=== PATIENT | male | born 1950 | race Caucasian/White ===

== ENCOUNTER 2020-05-08 07:11 | Day surgery (SDC) | payer MEDICARE ==
[2020-05-03 16:00] VITALS: BMI 24.3
[~2020-05-08 07:11] MED LIST: LACTATED RINGERS 1,000 ML IV SCH; LIDOCAINE 1% (10MG/ML) FOR IV START INTRADERMA PRN
[2020-05-08 07:25] VITALS: TEMP 97.8
[2020-05-08] MEDS ORDERED: LACTATED RINGERS 1,000 ML IV ONE (07:25)
[2020-05-08 07:32] LABS: Glucose,Whole Blood 72 mg/dL (75-99)
[2020-05-08] MEDS ORDERED: PROPOFOL 10 MG/ML 20 ML VIAL IV ONE (08:00)
--- NOTE | 2020-05-08 08:13 | P.GSHP ---
History of Present Illness H&P Date: 05/08/20 Chief Complaint: Colon cancer screening Patient here today for colonoscopy. He has not had 1 previously. No bowel complaints. No family history of colon cancer. Past Medical History Past Medical History: Cancer, Diabetes Mellitus, GERD/Reflux, Hyperlipidemia, Hypertension, Skin Disorder Additional Past Medical History / Comment(s): hiatal hernia, "dry skin". hx kidney cancer, hx skin cancer on face History of Any Multi-Drug Resistant Organisms: None Reported Past Surgical History: Hernia Repair, Tonsillectomy Additional Past Surgical History / Comment(s): partial left kidney removed for cancer, skin cancer removed from left side of face with graft Past Anesthesia/Blood Transfusion Reactions: No Reported Reaction Smoking Status: Former smoker - Past Family History Mother Family Medical History: No Reported History Medications and Allergies Home Medications Medication Instructions Recorded Confirmed Type Aspirin [Adult Low Dose Aspirin EC] 81 mg PO DAILY 05/03/20 05/03/20 History Atorvastatin [Lipitor] 20 mg PO 1800 05/03/20 05/03/20 History Fenofibrate Nanocrystallized 145 mg PO QAM 05/03/20 05/03/20 History [Fenofibrate] Insulin Glargine [Lantus] 27 unit SQ 1800 05/03/20 05/03/20 History Losartan Potassium 100 mg PO DAILY 05/03/20 05/03/20 History Metoprolol Tartrate [Lopressor] 50 mg PO BID 05/03/20 05/03/20 History Multivit-Min/FA/Lycopen/Lutein 1 each PO DAILY 05/03/20 05/03/20 History [Centrum Silver Tablet] Pantoprazole Sodium 40 mg PO BID 05/03/20 05/03/20 History Saxagliptin HCl [Onglyza] 5 mg PO QAM 05/03/20 05/03/20 History metFORMIN HCL [Glucophage] 850 mg PO BID 05/03/20 05/03/20 History Allergies Allergy/AdvReac Type Severity Reaction Status Date / Time Penicillins Allergy Swelling Verified 05/03/20 15:48 Surgical - Exam Vital Signs Temp Pulse Resp BP Pulse Ox 97.8 F 78 18 158/98 97 05/08/20 07:24 05/08/20 07:24 05/08/20 07:24 05/08/20 07:24 05/08/20 07:24 Physical exam: General: Well-developed, well-nourished HEENT: Normocephalic, sclerae nonicteric Abdomen: Nontender, nondistended Extremities: No edema Neuro: Alert and oriented Results - Labs Abnormal Lab Results - Last 24 Hours (Table) 05/08/20 Range/Units 07:29 POC Glucose (mg/dL) 72 L (75-99) mg/dL Assessment and Plan (1) Colon cancer screening Narrative/Plan: Will proceed with colonoscopy at this time Current Visit: Yes Status: Acute Code(s): Z12.11 - ENCOUNTER FOR SCREENING FOR MALIGNANT NEOPLASM OF COLON SNOMED Code(s): 286079839
--- NOTE | 2020-05-08 08:30 | P.PCN ---
Date of Procedure: 05/08/20 Procedure(s) Performed: PREOPERATIVE DIAGNOSIS: Colon cancer screening POSTOPERATIVE DIAGNOSIS: Descending colon polyp, transverse colon polyp, diverticulosis PROCEDURE: Colonoscopy with polypectomy ANESTHESIA: MAC SURGEON: Smooth Mckeon M.D. SPECIMENS: Polyps ENDOSCOPIC PROCEDURE: The patient was placed on the endoscopy table in the left decubitus position. The Olympus colonoscope was inserted into the anus and passed under direct visualization to the base of the cecum. The appendiceal orifice was visualized. From that point the scope was slowly withdrawn inspecting all surfaces carefully. There were no neoplastic inflammatory or polypoid lesions throughout the cecum or ascending colon. In the transverse colon a small polyp was removed. During removal using snare technique with cautery the polyp was mostly fulgurated and no significant specimen was obtained. In the descending colon at 45 cm a 1 cm polyp was removed in a piecemeal fashion. Was difficult to determine whether there was any residual polypoid tissue following removal. The remainder of the descending sigmoid and rectum appeared normal. There was mild diverticulosis. Digital rectal examination was normal. The patient was taken to the recovery room in stable condition per anesthesia guidelines. RECOMMENDATIONS: Await biopsy results. Will recommend short-term follow-up colonoscopy one year.
[2020-05-08 08:34] VITALS: RESP 16
[2020-05-08 08:53] VITALS: BP 131/78; PULSE 73
== END 2020-05-08 09:17 | disposition home or self-care (01) ==
LOC: ORWHC2ENDO 07:11
PROVIDERS: ATTEND Surgery
DX: Z12.11 Encounter for screening for malignant neoplasm of colon (principal); D12.4 Benign neoplasm of descending colon; K63.5 Polyp of colon; K57.30 Diverticulosis of large intestine without perforation or abscess without bleeding; E11.9 Type 2 diabetes mellitus without complications; K21.9 Gastro-esophageal reflux disease without esophagitis; E78.5 Hyperlipidemia, unspecified; I10 Essential (primary) hypertension; L85.3 Xerosis cutis; Z85.528 Personal history of other malignant neoplasm of kidney; Z85.828 Personal history of other malignant neoplasm of skin; Z87.19 Personal history of other diseases of the digestive system; Z98.890 Other specified postprocedural states; Z90.89 Acquired absence of other organs; Z90.5 Acquired absence of kidney; Z87.891 Personal history of nicotine dependence; Z79.82 Long term (current) use of aspirin; Z79.899 Other long term (current) drug therapy; Z79.4 Long term (current) use of insulin; Z88.0 Allergy status to penicillin; Z97.2 Presence of dental prosthetic device (complete) (partial)
CPT/HCPCS: 88305; 45385; J2704

== ENCOUNTER 2021-06-14 11:23 | Day surgery (SDC) | payer MEDICARE ==
[2021-05-16 09:33] VITALS: BMI 24.3
[2021-06-14] MEDS ORDERED: PROPOFOL 10 MG/ML 20 ML VIAL IV ONE (12:04)
[2021-06-14] MEDS ORDERED: LIDOCAINE 1% INJ 10MG/ML (20 ML MDV) ONE (12:04)
[2021-06-14] MEDS ORDERED: fentaNYL (PF) 50 MCG/ML 2 ML AMP ONE (12:04)
[2021-06-14] MEDS ORDERED: MIDAZOLAM 2 MG/2 ML VIAL ONE (12:04)
[2021-06-14 12:05] VITALS: RESP 16; TEMP 97
[2021-06-14 12:07] LABS: Glucose,Whole Blood 81 mg/dL (75-99)
[2021-06-14 12:42] LABS: Glucose,Whole Blood 85 mg/dL (75-99)
[2021-06-14 12:49] VITALS: BP 171/89; PULSE 66
[2021-06-14 13:42] LABS: Basophils # (A) 0.1 k/uL (0-0.2); Basophils % (A) 1 %; Eosinophils # (A) 0.2 k/uL (0-0.7); Eosinophils % (A) 5 %; HCT 39.4 % (39.0-53.0); HGB 12.7 gm/dL (13.0-17.5); Lymphocytes # (A) 1.1 k/uL (1.0-4.8); Lymphocytes % (A) 21 %; MCH 29.3 pg (25.0-35.0); MCHC 32.1 g/dL (31.0-37.0); MCV 91.3 fL (80.0-100.0); Mean Platelet Volume 8.7; Monocytes # (A) 0.4 k/uL (0-1.0); Monocytes % (A) 8 %; Neutrophils # (A) 3.2 k/uL (1.3-7.7); Neutrophils % (A) 61 %; Platelet Count 288 k/uL (150-450); RBC 4.32 m/uL (4.30-5.90); RDW 14.5 % (11.5-15.5); Reticulocyte % 1.8 % (0.5-2.0); WBC 5.2 k/uL (3.8-10.6)
--- NOTE | 2021-06-14 14:19 | PCN ---
PROCEDURE NOTE DATE OF PROCEDURE: 06/14/2021 PREOPERATIVE DIAGNOSIS: Multiple myeloma. POSTOPERATIVE DIAGNOSIS: Multiple myeloma. PROCEDURE: Bone marrow aspirate and biopsy. SITE: Right iliac crest. ANESTHESIA: Local with IV systemic sedation. DETAILS: Utilizing sterile technique, the skin overlying the right iliac crest was prepared with Betadine and alcohol. After adequate sterile draping and local anesthesia with 1% lidocaine and systemic sedation, a size 11, 4-inch Jamshidi needle was utilized to access the periosteum with ease. A total of 16 mL of aspirate and 3 cm bone core biopsies were obtained. The patient tolerated the procedure well. There was no immediate procedure-related complication. Total blood loss was less than 1 mL. Results are pending. MMODL / IJN: [id number] /
== END 2021-06-14 13:02 | disposition home or self-care (01) ==
LOC: OR 11:23
PROVIDERS: ATTEND Internal Medicine Hematology & Oncology
DX: C90.00 Multiple myeloma not having achieved remission (principal)
CPT/HCPCS: 38222; 85025; 85045; J2250; J2001; J3010; J2704

== ENCOUNTER → 2021-07-12 | Outpatient (CLI) | payer MEDICARE ==
--- NOTE | 2021-07-16 13:37 | PE ---
Nuclear medicine PET/CT HISTORY: Multiple myeloma, initial Patient received 8.2 mCi F-18 FDG intravenously in delayed scanning was performed from the skull base to the mid thighs. Localization and attenuation correction CT scan was performed. No comparisons Average mediastinal SUV 2.4, average liver SUV 3.3 Chest and neck: There is no cervical or supraclavicular adenopathy, no suspicious uptake. Subcarinal adenopathy is borderline, SUV 3.4. There is a small pericardial effusion. Coronary artery calcifications are present. Hiatal hernia with partial intrathoracic stomach is noted. There is basil ar atelectasis. No evident lung mass, centrilobular paraseptal emphysematous changes are present. ABDOMEN: There is no evident liver mass. No adrenal mass or retroperitoneal adenopathy. Cortical cyst at the upper pole of the left kidney is exophytic and measures approximately 5.8 cm, no suspicious u ptake. Uptake along the bowel is likely physiologic. Diverticular change is present. Within the left lower quadrant there are metallic densities, correlate for prior surgery. Prostate is enlarged. No pe lvic adenopathy or free fluid. Nonenlarged nodes in the left axilla show uptake, SUV 2.5, nonenlarged nodes in the right axilla showing SUV 2.0 Osseous structures show no suspicious lytic lesions, no suspicious uptake. Degenerative disc changes, facet arthropathy noted at the lower lumbar spine. Degenerative change present within the right shou lder. IMPRESSION: No suspicious uptake within the bones. Additional nonspecific findings described above.
== END | disposition home or self-care (01) ==
LOC: RADPETMAIN 11:24
PROVIDERS: ATTEND Internal Medicine Hematology & Oncology
DX: C90.00 Multiple myeloma not having achieved remission (principal); M47.816 Spondylosis without myelopathy or radiculopathy, lumbar region; M19.011 Primary osteoarthritis, right shoulder; N28.1 Cyst of kidney, acquired; I31.3 Pericardial effusion (noninflammatory); K44.9 Diaphragmatic hernia without obstruction or gangrene; J98.11 Atelectasis; I25.10 Atherosclerotic heart disease of native coronary artery without angina pectoris
CPT/HCPCS: 78815; A9552

== ENCOUNTER 2021-08-06 07:07 | Day surgery (SDC) | payer MEDICARE ==
[2021-08-01 14:09] VITALS: BMI 23.7
[2021-08-06 07:37] VITALS: RESP 16; TEMP 97.6
[2021-08-06] MEDS ORDERED: LIDOCAINE 1% (10MG/ML) FOR IV START INTRADERMA ONE (07:40)
[2021-08-06] MEDS ORDERED: PROPOFOL 10 MG/ML 20 ML VIAL IV ONE (07:57)
[2021-08-06] MEDS ORDERED: LIDOCAINE 1% INJ 10MG/ML (20 ML MDV) ONE (07:57)
[2021-08-06 07:58] LABS: Glucose,Whole Blood 90 mg/dL (75-99)
--- NOTE | 2021-08-06 08:00 | P.GSHP ---
History of Present Illness H&P Date: 08/06/21 Chief Complaint: Colon polyp 71-year-old male underwent colonoscopy April 2020. Patient was found to have a 1 cm polyp in the descending colon that was removed in pieces. Here today for repeat evaluation. No new bowel complaints. Past Medical History Past Medical History: Cancer, Diabetes Mellitus, GERD/Reflux, Hyperlipidemia, Hypertension Additional Past Medical History / Comment(s): hiatal hernia, hx kidney cancer with surgery., skin cancer., states iron infusion Mar 2021., states elevated protein in his blood. History of Any Multi-Drug Resistant Organisms: None Reported Past Surgical History: Heart Catheterization, Hernia Repair, Tonsillectomy Additional Past Surgical History / Comment(s): partial left kidney removed for cancer, skin cancer removed from left side of face with graft, inguinal hernia repair x2. bone marrow biopsy 06/14/21 Past Anesthesia/Blood Transfusion Reactions: No Reported Reaction Smoking Status: Former smoker - Past Family History Mother Family Medical History: No Reported History Medications and Allergies Home Medications Medication Instructions Recorded Confirmed Type Atorvastatin [Lipitor] 20 mg PO 1800 05/03/20 08/06/21 History Fenofibrate Nanocrystallized 145 mg PO QAM 05/03/20 08/06/21 History [Fenofibrate] Insulin Glargine [Lantus] 22 unit SQ 1800 05/03/20 08/06/21 History Losartan Potassium 100 mg PO QAM 05/03/20 08/06/21 History Metoprolol Tartrate [Lopressor] 50 mg PO BID 05/03/20 08/06/21 History Multivit-Min/FA/Lycopen/Lutein 1 each PO DAILY 05/03/20 08/01/21 History [Centrum Silver Tablet] Pantoprazole Sodium 40 mg PO HS 05/03/20 08/06/21 History metFORMIN HCL [Glucophage] 850 mg PO BID 05/03/20 08/06/21 History Ascorbic Acid [Vitamin C] 300 mg PO DAILY 05/16/21 08/01/21 History Cholecalciferol [Vitamin D3 (25 50 mcg PO DAILY 05/16/21 08/01/21 History Mcg = 1000 Iu)] Turmeric Root Extract [Turmeric] 1,500 mg PO DAILY 05/16/21 08/01/21 History Vitamin B Complex 1 each PO DAILY 05/16/21 08/01/21 History Allergies Allergy/AdvReac Type Severity Reaction Status Date / Time Penicillins Allergy Swelling Verified 08/06/21 07:31 Surgical - Exam Vital Signs Temp Pulse Resp BP Pulse Ox 97.6 F 61 16 173/83 98 08/06/21 07:36 08/06/21 07:36 08/06/21 07:36 08/06/21 07:36 08/06/21 07:36 Physical exam: General: Well-developed, well-nourished HEENT: Normocephalic, sclerae nonicteric Abdomen: Nontender, nondistended Extremities: No edema Neuro: Alert and oriented Assessment and Plan (1) Colon polyp Narrative/Plan: Will proceed with colonoscopy at this time Current Visit: Yes Status: Acute Code(s): K63.5 - POLYP OF COLON SNOMED Code(s): 04246246
--- NOTE | 2021-08-06 08:27 | P.PCN ---
Date of Procedure: 08/06/21 Procedure(s) Performed: PREOPERATIVE DIAGNOSIS: GERD, colon polyp POSTOPERATIVE DIAGNOSIS: Gastritis, moderate sized hiatal hernia, diverticulosis, colon polyp PROCEDURE: 1. EGD with biopsy 2. Colonoscopy with snare polypectomy ANESTHESIA: MAC SURGEON: Smooth Mckeon M.D. SPECIMENS: Antrum, descending colon polyp ENDOSCOPIC PROCEDURE: The patient was on the endoscopy table in the left decubitus position. The Olympus gastroscope was inserted into the oropharynx and passed under direct visualization to the region of the third portion of the duodenum. From that point the scope was slowly withdrawn inspecting all surfaces carefully. There were no neoplastic inflammatory or polypoid lesions throughout the duodenum. The pylorus was widely patent. The stomach was carefully inspected. There was mild gastritis present. A biopsy of the antrum took place to rule out H. pylori. Retroflexion revealed a moderate sized hiatal hernia. The GE junction was present 5 cm above the diaphragmatic hiatus. There were no inflammatory changes above the diaphragmatic hiatus or in the esophagus as well. The patient was kept on the endoscopy table in the left decubitus position. The Olympus colonoscope was inserted into the anus and passed under direct visualization to the base of the cecum. The appendiceal orifice was visualized. From that point the scope was slowly withdrawn inspecting all surfaces carefully. There were no neoplastic inflammatory or polypoid lesions throughout the cecum, ascending, and transverse colon. In the descending colon at 45 cm a small portion of the polyp previously seen was again visualized. This was removed in 2 pieces. No obvious residual polypoid tissue was seen. The remainder of the descending sigmoid and rectum appeared normal. There was mild scattered diverticulosis. Digital rectal examination was normal. The patient was taken to the recovery room in stable condition per anesthesia guidelines. RECOMMENDATIONS: Await biopsy results. Recommend repeat colonoscopy 2 years.
[2021-08-06 08:47] VITALS: BP 147/84; PULSE 71
== END 2021-08-06 09:06 | disposition home or self-care (01) ==
LOC: ORWHC2ENDO 07:07
PROVIDERS: ATTEND Surgery
DX: Z12.11 Encounter for screening for malignant neoplasm of colon (principal); D12.4 Benign neoplasm of descending colon; K57.30 Diverticulosis of large intestine without perforation or abscess without bleeding; K29.50 Unspecified chronic gastritis without bleeding; K31.9 Disease of stomach and duodenum, unspecified; K44.9 Diaphragmatic hernia without obstruction or gangrene; E78.5 Hyperlipidemia, unspecified; E11.9 Type 2 diabetes mellitus without complications; K21.9 Gastro-esophageal reflux disease without esophagitis; I10 Essential (primary) hypertension; Z85.828 Personal history of other malignant neoplasm of skin; Z87.442 Personal history of urinary calculi; Z98.890 Other specified postprocedural states; Z87.891 Personal history of nicotine dependence; Z97.2 Presence of dental prosthetic device (complete) (partial); Z90.5 Acquired absence of kidney; Z85.528 Personal history of other malignant neoplasm of kidney; Z79.84 Long term (current) use of oral hypoglycemic drugs; Z79.4 Long term (current) use of insulin; Z79.899 Other long term (current) drug therapy; Z88.0 Allergy status to penicillin
CPT/HCPCS: 88305; 45385; 43239; J2001; J2704

== ENCOUNTER 2022-01-01 18:49 | Emergency (ER) | payer MEDICARE ==
[2022-01-01 19:07] VITALS: RESP 18
[2022-01-01] MEDS ORDERED: HYDROmorphone 0.5 MG/0.5 ML SYRINGE IVP STA (19:14)
[2022-01-01] MEDS ORDERED: SODIUM CHLORIDE 0.9% 1,000 ML IV STA (19:14)
[2022-01-01] MEDS ORDERED: ONDANSETRON 4 MG/2 ML VIAL IVP STA (19:14)
--- NOTE | 2022-01-01 19:19 | ED ---
Abdominal Pain HPI - General Chief Complaint: Abdominal Pain Stated Complaint: side pain Time Seen by Provider: 01/01/22 19:08 Source: patient, RN notes reviewed Mode of arrival: ambulatory Limitations: no limitations - History of Present Illness Initial Comments: This is a 71-year-old male who presents to the emergency department for right lower quadrant pain. Patient states that he and his were eating dinner, and he started to develop a severe pain in the right lower quadrant and also started to feel clammy and nauseous. He had planned on seeing his primary care provider tomorrow, however he states that the pain has persisted and he was not able to take it anymore. Denies any vomiting, changes in bowel habits, or difficulty with urination. Denies any testicular pain. Patient states that he has had hernias in the past, and this feels much different. Denies any fevers, chills, sore throat, cough, dyspnea, chest pain, palp itations, vomiting, diarrhea, back pain, or headaches. MD Complaint: abdominal pain Location: RLQ Associated Symptoms: nausea - Related Data Home Medications Medication Instructions Recorded Confirmed Atorvastatin [Lipitor] 20 mg PO DAILY 05/03/20 01/01/22 Fenofibrate Nanocrystallized 145 mg PO DAILY 05/03/20 01/01/22 [Fenofibrate] Insulin Glargine [Lantus] 27 unit SQ DAILY@1800 05/03/20 01/01/22 Losartan Potassium 100 mg PO DAILY 05/03/20 01/01/22 Metoprolol Tartrate [Lopressor] 50 mg PO BID 05/03/20 01/01/22 Multivit-Min/FA/Lycopen/Lutein 1 tab PO DAILY 05/03/20 01/01/22 [Centrum Silver Tablet] Pantoprazole Sodium 40 mg PO HS 05/03/20 01/01/22 metFORMIN HCL [Glucophage] 850 mg PO BID 05/03/20 01/01/22 Ascorbic Acid [Vitamin C] 500 mg PO DAILY 05/16/21 01/01/22 Cholecalciferol [Vitamin D3 (25 50 mcg PO DAILY 05/16/21 01/01/22 Mcg = 1000 Iu)] Vitamin B Complex 1 cap PO DAILY 05/16/21 01/01/22 Aspirin EC [Ecotrin Low Dose] 81 mg PO DAILY 01/01/22 01/01/22 Dapagliflozin Propanediol [Farxiga] 10 mg PO DIRECTED 01/01/22 01/01/22 Meclizine HCl [Antivert] 25 mg PO TID PRN 01/01/22 01/01/22 Nystatin 100,000Unit/gm Cream 1 applic TOPICAL BID PRN 01/01/22 01/01/22 [Mycostatin Cream] Omeprazole Magnesium [PriLOSEC OTC] 20 mg PO DAILY 01/01/22 01/01/22 Saxagliptin HCl [Onglyza] 5 mg PO DIRECTED 01/01/22 01/01/22 Turmeric Root Extract [Turmeric] 1,000 mg PO DAILY 01/01/22 01/01/22 Previous Rx's Medication Instructions Recorded HYDROcodone/APAP 5-325MG [[place] 1 tab PO Q6HR PRN 3 Days #12 tab 01/01/22 5-325] Ibuprofen 600 mg PO Q6H PRN #30 tab 01/01/22 Ondansetron Odt [Zofran Odt] 4 mg PO Q8HR PRN #20 tab 01/01/22 Tamsulosin [Flomax] 0.4 mg PO DAILY #10 cap 01/01/22 cefUROXime axetiL [Ceftin] 500 mg PO BID 7 Days #14 tab 01/01/22 Allergies Allergy/AdvReac Type Severity Reaction Status Date / Time Penicillins Allergy Swelling Verified 01/01/22 20:17 Review of Systems ROS Statement: Those systems with pertinent positive or pertinent negative responses have been documented in the HPI. ROS Other: All systems not noted in ROS Statement are negative. Past Medical History Past Medical History: Cancer, Diabetes Mellitus, GERD/Reflux, Hyperlipidemia, Hypertension Additional Past Medical History / Comment(s): hiatal hernia, hx kidney cancer with surgery., skin cancer., states iron infusion Mar 2021., states elevated protein in his blood. History of Any Multi-Drug Resistant Organisms: None Reported Past Surgical History: Heart Catheterization, Hernia Repair, Tonsillectomy Additional Past Surgical History / Comment(s): partial left kidney removed for cancer, skin cancer removed from left side of face with graft, inguinal hernia repair x2. bone marrow biopsy 06/14/21 Past Anesthesia/Blood Transfusion Reactions: No Reported Reaction Past Psychological History: No Psychological Hx Reported Smoking Status: Former smoker Past Alcohol Use History: Occasional Past Drug Use History: None Reported - Past Family History Mother Family Medical History: No Reported History General Exam Limitations: no limitations General appearance: alert, in distress Head exam: Present: atraumatic, normocephalic, normal inspection Neck exam: Present: normal inspection. Absent: tenderness, meningismus, lymphadenopathy Respiratory exam: Present: normal lung sounds bilaterally. Absent: respiratory distress, wheezes, rales, rhonchi, stridor Cardiovascular Exam: Present: regular rate, normal rhythm, normal heart sounds. Absent: systolic murmur, diastolic murmur, rubs, gallop, clicks GI/Abdominal exam: Present: soft, tenderness (RLQ), normal bowel sounds. Absent: distended, guarding, rebound, rigid Neurological exam: Present: alert, oriented X3, CN II-XII intact Psychiatric exam: Present: normal affect, normal mood Skin exam: Present: warm, dry, intact, normal color. Absent: rash Course Vital Signs 01/01/22 19:04 Temperature 97.9 F Pulse Rate 60 Respiratory 18 Rate Blood Pressure 167/77 O2 Sat by Pulse 96 Oximetry Medical Decision Making - Medical Decision Making This is a 71 year old male who presents to the emergency department for right lower quadrant pain. Lab work is consistent with an acute kidney injury and urinalysis is consistent with an infection and hematuria. Computed tomography scan of the abdomen and pelvis reveals right-sided hydronephrosis and hydroureter with a renal calculus at the ureterovesicular junction. Findings di scussed with the patient. Patient's pain and nausea was controlled in the emergency department. Discussed with the patient, that because his symptoms were controlled in the emergency department, this can be managed on an outpatient basis. Prescription for [place], ibuprofen, Zofran, Flomax, and Ceftin provided. Initial dose of ceftriaxone was administered in the emergency department. Advised to try treating pain with ibuprofen and Tylenol and to take the [place] sparingly when the pain is the most severe. Also instructed him to avoid driving or operating machinery when taking this. The Flomax is to be taken once daily until his pain resolves or he realizes that he passed the stone. He was given a urine strainer to use at home. Follow up for urology was provided. Return precautions reviewed in depth, the patient is instructed to return to the emergency department with any new, worsening, or concerning symptoms. Patient verbalized understanding. This case was discussed in detail with the attending ED physician. Presentation, findings, and treatment plan discussed in detail as well. - Lab Data Result diagrams: 01/01/22 20:00 01/01/22 20:00 Lab Results 01/01/22 01/01/22 01/01/22 Range/Units 20:00 20:00 21:07 WBC 8.5 (3.8-10.6) k/uL RBC 4.05 L (4.30-5.90) m/uL Hgb 11.6 L (13.0-17.5) gm/dL Hct 37.2 L (39.0-53.0) % MCV 91.9 (80.0-100.0) fL MCH 28.8 (25.0-35.0) pg MCHC 31.3 (31.0-37.0) g/dL RDW 13.4 (11.5-15.5) % Plt Count 287 (150-450) k/uL MPV 7.6 Neutrophils % 80 % Lymphocytes % 11 % Monocytes % 4 % Eosinophils % 3 % Basophils % 0 % Neutrophils # 6.8 (1.3-7.7) k/uL Lymphocytes # 0.9 L (1.0-4.8) k/uL Monocytes # 0.4 (0-1.0) k/uL Eosinophils # 0.2 (0-0.7) k/uL Basophils # 0.0 (0-0.2) k/uL Hypochromasia Slight Sodium 135 L (137-145) mmol/L Potassium 5.2 H (3.5-5.1) mmol/L Chloride 106 (98-107) mmol/L Carbon Dioxide 16 L (22-30) mmol/L Anion Gap 13 mmol/L BUN 42 H (9-20) mg/dL Creatinine 1.95 H (0.66-1.25) mg/dL Est GFR (CKD-EPI)AfAm 39 (>60 ml/min/1.73 sqM) Est GFR (CKD-EPI)NonAf 34 (>60 ml/min/1.73 sqM) Glucose 307 H (74-99) mg/dL Calcium 8.9 (8.4-10.2) mg/dL Total Bilirubin 0.3 (0.2-1.3) mg/dL AST 21 (17-59) U/L ALT 14 (4-49) U/L Alkaline Phosphatase 63 (38-126) U/L Total Protein 10.9 H (6.3-8.2) g/dL Albumin 3.8 (3.5-5.0) g/dL Urine Color Yellow Urine Appearance Cloudy (Clear) Urine pH 6.0 (5.0-8.0) Ur Specific [place] 1.012 (1.001-1.035) Urine Protein 1+ H (Negative) Urine Glucose (UA) 3+ H (Negative) Urine Ketones Negative (Negative) Urine Blood Moderate H (Negative) Urine Nitrite Negative (Negative) Urine Bilirubin Negative (Negative) Urine Urobilinogen <2.0 (<2.0) mg/dL Ur Leukocyte Esterase Large H (Negative) Urine RBC 87 H (0-5) /hpf Urine WBC 16 H (0-5) /hpf Ur Squamous Epith Cells 2 (0-4) /hpf Hyaline Casts 1 (0-2) /lpf Urine Mucus Rare H (None) /hpf - Radiology Data Radiology results: report reviewed, image reviewed Disposition Clinical Impression: Hydronephrosis concurrent with and due to calculi of kidney and ureter Disposition: HOME SELF-CARE Instructions (If sedation given, give patient instructions): Kidney Stones (ED), How to Strain Your Urine (ED) Additional Instructions: Return to the emergency department with any new, worsening, or concerning symptoms. Take the Flomax daily until your pain resolves or you notice that you passed the kidney stone. Take the antibiotic twice daily as prescribed for 7 days. Take Ibuprofen and Tylenol as needed for pain, and use the [place] sparingly when your pain is the most severe. The Zofran can be taken up to every 8 hours as needed for nausea and vomiting. Do not drive or operate machinery when taking this. Contact Dr. Alfonso, urology, as listed below for a follow up appointment. Prescriptions: cefUROXime axetiL [Ceftin] 500 mg PO BID 7 Days #14 tab Tamsulosin [Flomax] 0.4 mg PO DAILY #10 cap Ibuprofen 600 mg PO Q6H PRN #30 tab PRN Reason: Pain HYDROcodone/APAP 5-325MG [[place] 5-325] 1 tab PO Q6HR PRN 3 Days #12 tab PRN Reason: Pain Ondansetron Odt [Zofran Odt] 4 mg PO Q8HR PRN #20 tab PRN Reason: Nausea And Vomiting Is patient prescribed a controlled substance at d/c from ED?: Yes When asked, does pt state using other controlled substances?: No If prescribed controlled substance>3 days was MAPS reviewed?: Prescribed <3 Days Referrals: Jed Del Rio MD [Primary Care Provider] - 1-2 days Keith Alfonso MD [STAFF PHYSICIAN] - 1-2 days
[2022-01-01 20:08] LABS: Basophils % (A) 0 %; Eosinophils # (A) 0.2 k/uL (0-0.7); Eosinophils % (A) 3 %; HCT 37.2 % (39.0-53.0); HGB 11.6 gm/dL (13.0-17.5); Hypochromasia Slight; Lymphocytes # (A) 0.9 k/uL (1.0-4.8); Lymphocytes % (A) 11 %; MCH 28.8 pg (25.0-35.0); MCHC 31.3 g/dL (31.0-37.0); MCV 91.9 fL (80.0-100.0); Mean Platelet Volume 7.6; Monocytes # (A) 0.4 k/uL (0-1.0); Monocytes % (A) 4 %; Neutrophils # (A) 6.8 k/uL (1.3-7.7); Neutrophils % (A) 80 %; Platelet Count 287 k/uL (150-450); RBC 4.05 m/uL (4.30-5.90); RDW 13.4 % (11.5-15.5); WBC 8.5 k/uL (3.8-10.6)
[2022-01-01 20:15] LABS: Albumin 3.8 g/dL (3.5-5.0); Calcium 8.9 mg/dL (8.4-10.2); Potassium 5.2 mmol/L (3.5-5.1); Total Bilirubin 0.3 mg/dL (0.2-1.3); Total Protein 10.9 g/dL (6.3-8.2)
--- NOTE | 2022-01-01 21:07 | CT ---
EXAMINATION TYPE: CT abdomen pelvis wo con DATE OF EXAM: 01/01/2022 COMPARISON: PET CT scan 07/12/2021 HISTORY: Right lower quadrant abdominal pain. CT DLP: 720.6 mGycm Automated exposure control for dose reduction was used. Images obtained from the diaphragm to the floor of the pelvis with no contrast. There is some linear infiltrate and atelectasis at both lung bases and more on the left side. Some el evation of the left diaphragm. There is large hiatal hernia. No pericardial effusion. Heart appears e nlarged. Liver spleen pancreas and gallbladder appear intact. Bile ducts are not dilated. There is no adrenal mass. Kidneys have normal size. There is right side hydronephrosis and hydrourete r. There is mild right-sided periureteral edema. There is faint calcification at the right ureteroves ical junction and could be a small 2 mm calculus. Bladder distends smoothly. No inguinal hernia. Ther e are apparent surgical clips in the left inguinal region. No free fluid in the pelvis. No pelvic mas s. There are some sigmoid diverticula. No diverticulitis. There is 6 cm cortical cyst lateral left ki dney. No retroperitoneal adenopathy. There is 1 cm calcification at the posterior right renal hilum t hat is vascular in appearance. No evidence of obstruction on the left side. There is no mesenteric edema. No ascites or free air. No sign of a bowel obstruction. Appendix is pos terior and small and appears normal. The lumbar vertebrae have normal alignment. No compression fracture. No focal bone destruction. Bony pelvis is intact. The hip joints are intact. IMPRESSION: There is mild right-sided hydronephrosis and hydroureter and perinephric mild edema which is new comp ared to old exam and there is likely a low density calculus at the ureterovesical junction. Normal appendix. Sigmoid diverticulosis. There is some mild linear infiltrate and atelectasis at the lung bases similar to old exam.
[2022-01-01] MEDS ORDERED: IBUPROFEN 600 MG STARTER PACK 4 TAB BTL PO STA (21:22)
[2022-01-01] MEDS ORDERED: ACET/COD 300 MG/30 MG STARTER PACK 6 TAB BTL PO STA (21:22)
[2022-01-01] MEDS ORDERED: ONDANSETRON 4 MG ODT STARTER PACK 2 TAB BTL PO STA (21:22)
[2022-01-01 21:23] LABS: Appearance,Urine Cloudy (Clear); Bilirubin,Urine Negative (Negative); Blood,Urine Moderate (Negative); Color,Urine Yellow; Glucose,Urine (UA) 3+ (Negative); Hyaline Casts,Urine 1 /lpf (0-2); Ketones,Urine Negative (Negative); Leukocyte Esterase,Urine Large (Negative); Mucus,Urine Rare /hpf; Nitrite,Urine Negative (Negative); Protein,Urine 1+ (Negative); RBC,Urine 87 /hpf (0-5); Specific Gravity,Urine 1.012 (1.001-1.035); Squamous Epithelial Cell,Urine 2 /hpf (0-4); Urobilinogen,Urine <2.0 mg/dL (<2.0); WBC,Urine 16 /hpf (0-5)
[2022-01-01] MEDS ORDERED: cefTRIAXone IN SWFI 1,000 MG/10 ML SYRINGE IVP STA (21:29)
[2022-01-01 22:02] VITALS: BP 160/85; PULSE 73; TEMP 98.3
== END 2022-01-01 22:02 | disposition home or self-care (01) ==
LOC: EC 18:49
DX: N13.2 Hydronephrosis with renal and ureteral calculous obstruction (principal); E11.9 Type 2 diabetes mellitus without complications; K21.9 Gastro-esophageal reflux disease without esophagitis; I10 Essential (primary) hypertension; Z87.891 Personal history of nicotine dependence; Z88.0 Allergy status to penicillin; Z79.82 Long term (current) use of aspirin; Z79.899 Other long term (current) drug therapy; Z79.84 Long term (current) use of oral hypoglycemic drugs
CPT/HCPCS: 36415; 80053; 85025; 81001; 87086; 74176; 99284; 96374; 96375 ×2; 96361 ×2; J2405; J0696; S0119; J1170

== ENCOUNTER → 2022-03-11 | Outpatient (CLI) | payer MEDICARE ==
--- NOTE | 2022-03-11 13:38 | US ---
EXAMINATION TYPE: US kidneys/renal and bladder DATE OF EXAM: 03/11/2022 COMPARISON: CT abdomen pelvis 01/01/2022. CLINICAL HISTORY: N20.0 CALCULUS OF KIDNEY. History of kidney stone EXAM MEASUREMENTS: Right Kidney: 12.3 x 5.6 x 6.1 cm Left Kidney: 11.9 x 5.4 x 4.0 cm Limitations due to large amount of overlying bowel content Right Kidney: Cyst measuring up to 1.5 cm. No solid mass or shadowing calculi. Left Kidney: Cyst within the superior pole of the left kidney measuring 4.6 x 4.6 x 5.9 cm. No solid mass or shadowing calculi. Bladder: wnl Bilateral Jets seen: no Multiple enlarged Prostate = 5.1cm. This indents upon the bladder base. IMPRESSION: 1. No hydronephrosis or shadowing calculi. 2. Bilateral renal cysts. 3. Mildly enlarged prostate gland.
== END | disposition home or self-care (01) ==
LOC: RADUSWWP 12:48
PROVIDERS: ATTEND Internal Medicine
DX: N28.1 Cyst of kidney, acquired (principal); N40.0 Benign prostatic hyperplasia without lower urinary tract symptoms
CPT/HCPCS: 76770

== ENCOUNTER → 2022-08-29 | Outpatient (CLI) | payer MEDICARE ==
--- NOTE | 2022-08-30 22:29 | PE ---
EXAMINATION TYPE: PET CT fusion skull to thigh DATE OF EXAM: 08/29/2022 COMPARISON: Prior PET/CT July 12, 2021 HISTORY: Multiple myeloma. History of tumor left kidney removed 2015. TECHNIQUE: Following the intravenous administration of 10.5 mCi of F-18 FDG, whole body images are p erformed from the top of skull to the bottom of feet. Images are reviewed on the computer in the cor onal, axial, and sagittal planes. Reconstructed rotating images are created on independent workstati on and reviewed on the computer. A localization and attenuation correction CT is performed in conju nction with the PET scan. Blood glucose level equals 112 SCAN: Subsequent Scan FINDINGS: HEAD AND NECK: No areas of abnormal hypermetabolic uptake. CHEST, MEDIASTINUM, AND HILAR REGION: No areas of abnormal hypermetabolic uptake. ABDOMEN AND PELVIS: No areas of abnormal hypermetabolic uptake. LOWER EXTREMITIES: No areas of abnormal hypermetabolic uptake. OSSEOUS STRUCTURES: No areas of hypermetabolic focal lytic lesions. OTHER CT: Moderate calcified plaque left greater than right carotid bulbs is redemonstrated. Moderate to large size hiatal hernia is redemonstrated. Coronary artery calcification is again seen. Thin-wal led cysts with mosaic attenuation in the lungs is again seen and more prominent from prior. Enlarged prostate consistent with BPH. IMPRESSION: No new areas of abnormal hypermetabolic uptake to suggest active myeloma recurrence.
== END | disposition home or self-care (01) ==
LOC: RADPETMAIN 14:59
PROVIDERS: ATTEND Internal Medicine Hematology & Oncology
DX: C90.00 Multiple myeloma not having achieved remission (principal)
CPT/HCPCS: 78815; A9552

== ENCOUNTER 2023-03-13 12:48 | Inpatient (IN) | payer MEDICARE ==
--- NOTE | 2023-03-13 14:09 | ED ---
SOB HPI - General Chief Complaint: Shortness of Breath Stated Complaint: sever coughing Time Seen by Provider: 03/13/23 13:29 Source: patient, RN notes reviewed Mode of arrival: ambulatory Limitations: no limitations - History of Present Illness Initial Comments: This is a 73-year-old male who presents to the emergency department for shortness of breath, coughing, and weakness. Patient states that 6 days ago, he started to get body aches and generally felt unwell. Symptoms then continued to progress and he developed severe coughing and shortness of breath. He then started to feel very weak, was sleeping excessively, and not eating. He did not develop any chest pain, nausea, or vomiting. He did have an abnormal computed tomography scan of the chest earlier this month. He was supposed to have a bronchoscopy 2 days ago, but had to cancel it because he did not feel well. He does use a Trelegy and albuterol inhaler at home with no significant relief in symptoms. MD Complaint: shortness of breath, cough - Related Data Home Medications Medication Instructions Recorded Confirmed Atorvastatin [Lipitor] 20 mg PO DAILY 05/03/20 03/13/23 Fenofibrate Nanocrystallized 145 mg PO DAILY 05/03/20 03/13/23 [Fenofibrate] Losartan Potassium 100 mg PO DAILY 05/03/20 03/13/23 Metoprolol Tartrate [Lopressor] 50 mg PO BID 05/03/20 03/13/23 Multivit-Min/FA/Lycopen/Lutein 1 tab PO DAILY 05/03/20 03/13/23 [Centrum Silver Tablet] Pantoprazole Sodium 40 mg PO HS 05/03/20 03/13/23 Cholecalciferol [Vitamin D3 (25 50 mcg PO DAILY 05/16/21 03/13/23 Mcg = 1000 Iu)] Vitamin B Complex 1 cap PO DAILY 05/16/21 03/13/23 Dapagliflozin Propanediol [Farxiga] 10 mg PO DAILY 01/01/22 03/13/23 Turmeric Root Extract [Turmeric] 1,000 mg PO DAILY 01/01/22 03/13/23 Albuterol Inhaler [Ventolin Hfa 1 - 2 puff INHALATION RT-QID PRN 03/06/23 03/13/23 Inhaler] Fluticasone/Umeclidin/Vilanter 1 puff INHALATION RT-DAILY 03/06/23 03/13/23 [Trelegy Ellipta 100-62.5-25] Sodium Chloride 5% Ophth Soln 1 drops BOTH EYES BID 03/06/23 03/13/23 [Mary 128] Insulin Glargine,Hum.rec.anlog 23 units SQ DAILY@1800 03/13/23 03/13/23 [Lantus Solostar Pen] L.acidoph,Paracasei, B.lactis 1 cap PO DAILY 03/13/23 03/13/23 [Probiotic] Levothyroxine Sodium [Synthroid] 25 mcg PO DAILY 03/13/23 03/13/23 Meclizine [Antivert] 25 mg PO TID PRN 03/13/23 03/13/23 Nitroglycerin Sl Tabs [Nitrostat] 0.4 mg SL Q5M PRN 03/13/23 03/13/23 Superbeets Circulation Gummies 1 tab PO DAILY 03/13/23 03/13/23 Vitamin C 200mg 1 tab PO DAILY 03/13/23 03/13/23 Previous Rx's Medication Instructions Recorded Tamsulosin [Flomax] 0.4 mg PO DAILY #10 cap 01/01/22 Allergies Allergy/AdvReac Type Severity Reaction Status Date / Time Penicillins Allergy Swelling Verified 03/13/23 16:52 Review of Systems ROS Statement: Those systems with pertinent positive or pertinent negative responses have been documented in the HPI. ROS Other: All systems not noted in ROS Statement are negative. Past Medical History Past Medical History: Cancer, Diabetes Mellitus, GERD/Reflux, Hyperlipidemia, Hypertension, Thyroid Disorder Additional Past Medical History / Comment(s): hiatal hernia, hx kidney cancer with surgery. left , skin cancer., states iron infusion Mar 2021., states elevated protein in his blood. History of Any Multi-Drug Resistant Organisms: None Reported Past Surgical History: Heart Catheterization, Hernia Repair, Tonsillectomy Additional Past Surgical History / Comment(s): partial left kidney removed for cancer, skin cancer removed from left side of face with graft, inguinal hernia repair x2. bone marrow biopsy 06/14/21 Past Anesthesia/Blood Transfusion Reactions: No Reported Reaction Additional Past Anesthesia/Blood Transfusion Reaction / Comment(s): no blood transfusion reaction Past Psychological History: No Psychological Hx Reported Smoking Status: Former smoker Past Alcohol Use History: None Reported Past Drug Use History: None Reported - Past Family History Mother Family Medical History: No Reported History General Exam Limitations: no limitations General appearance: alert, in no apparent distress Head exam: Present: atraumatic, normocephalic, normal inspection Respiratory exam: Present: decreased breath sounds, prolonged expiratory Cardiovascular Exam: Present: regular rate, normal rhythm, normal heart sounds. Absent: systolic murmur, diastolic murmur, rubs, gallop, clicks Neurological exam: Present: alert, oriented X3, CN II-XII intact Psychiatric exam: Present: normal affect, normal mood Skin exam: Present: warm, dry, intact, normal color. Absent: rash Course Vital Signs 03/13/23 03/13/23 03/13/23 12:53 15:00 16:16 Temperature 97.4 F L Pulse Rate 92 87 Respiratory 18 20 Rate Blood Pressure 103/60 O2 Sat by Pulse 93 L Oximetry 03/13/23 03/13/23 03/13/23 16:25 17:00 22:44 Temperature Pulse Rate 87 87 98 Respiratory 22 18 Rate Blood Pressure 115/76 123/63 O2 Sat by Pulse 95 92 L Oximetry 03/14/23 03/14/23 03/14/23 03:33 04:00 05:00 Temperature Pulse Rate 98 102 H 102 H Respiratory 18 20 18 Rate Blood Pressure 123/63 111/48 87/43 O2 Sat by Pulse 91 L 91 L 92 L Oximetry 03/14/23 03/14/23 03/14/23 06:00 10:30 11:09 Temperature 97.6 F Pulse Rate 88 88 86 Respiratory 20 20 16 Rate Blood Pressure 110/59 123/63 O2 Sat by Pulse 92 L 92 L 91 L Oximetry 03/14/23 03/14/23 11:15 14:39 Temperature 97.5 F L Pulse Rate 86 96 Respiratory 16 22 Rate Blood Pressure 125/65 O2 Sat by Pulse 92 L Oximetry Medical Decision Making - Medical Decision Making This is a 73-year-old male who presents to the emergency department for coughing and shortness of breath. Was pt. sent in by a medical professional or institution? @ -No Did you speak to anyone other than the patient for history? @ -No Did you review nursing and triage notes? @ -Yes, and I agree, it is accurate with regards to the patient's symptoms. Were old charts reviewed? @ -Yes, CT scan of the chest from 02/16/23 demonstrating upper lobe predominant cystic lung disease without nodularity or bronchiectasis. Differential Diagnosis? @ -Differential Dyspnea: Coronary syndrome, arrhythmia, tamponade, asthma, COPD, pulmonary embolism, pn eumonia, pneumothorax, pulmonary effusion, anaphylaxis, diabetic ketoacidosis, flailed chest, pulmonary contusion, diaphragmatic rupture, anemia, neuromuscular, this is not meant to be an all-inclusive list. EKG interpreted by me (3pts min.)? @ -EKG interpreted by me demonstrating the following: Sinus rhythm. Ventricular rate 89 beats per minute, FL interval 161 ms, QRS duration 106 ms, QTC 391 ms. X-rays interpreted by me (1pt min.)? @ -Chest x-ray obtained. My interpretation identifies left lobe consolidations. CT interpreted by me (1pt min.)? @ -Not obtained U/S interpreted by me (1pt. min.)? @ -Not obtained What testing was considered but not performed? (CT, X-rays, U/S, labs)? Why? @ -None What meds were considered but not given? Why? @ -None Did you discuss the management of the patient with other professionals? @ -Yes, Dr. Del Rio, who accepts the patient for admission. Did you reconcile home meds? @ -Yes Was smoking cessation discussed for >3mins.? @ -No Was critical care preformed (if so, how long)? @ -No Were there social determinants of health that impacted care today? How? (Homelessness, low income, unemployed, alcoholism, drug addiction, transportation, low edu. Level, literacy, decrease access to med. care, fci, rehab)? @ -No Was there de-escalation of care discussed even if they declined? (Discuss DNR or withdrawal of care, Hospice)? @ -No What co-morbidities impacted this encounter? (DM, HTN, Smoking, COPD, CAD, Cancer, CVA, Hep., AIDS, mental health diagnosis, sleep apnea, morbid obesity)? @ -Respiratory illness, DM, HLD, HTN Was patient admitted / discharged? @ -Admitted. Lab work obtained revealing findings concerning for diabetic ketoacidosis with a blood sugar of 455, anion gap of 21, and bicarb of 10. Acetone is positive. This was discussed with the patient, who advised that because he has felt ill, he has not taken his diabetic medication 4 days. When he checked his sugar today, states that it was in the 400s, which is higher than it has ever been for him. Chest x-ray obtained revealing extensive new ai rspace disease throughout the left lung concerning for pneumonia. It also advised that this is likely superimposed on chronic interstitial changes. Patient admitted to medicine for further management of DKA and pneumonia. He was started on the DKA and pneumonia protocols. He was aggressively hydrated as well with a 2L bolus and started on maintenance fluids at 200mL/hr. Undiagnosed new problem with uncertain prognosis? @ -None Drug Therapy requiring intensive monitoring for toxicity (Heparin, Nitro, Insulin, Cardizem)? @ -Insulin Were any procedures done? @ -None Diagnosis/symptom? @ -DKA, pneumonia Acute, or Chronic, or Acute on Chronic? @ -Acute Uncomplicated (without systemic symptoms) or Complicated (systemic symptoms)? @ -Complicated Side effects of treatment? @ -None Exacerbation, Progression, or Severe Exacerbation] @ -Not applicable Poses a threat to life or bodily function? @ -Yes This case was discussed in detail with the attending ED physician, Dr. Sosa. Presentation, findings, and treatment plan discussed in detail as well. - Lab Data Result diagrams: 03/17/23 07:14 03/17/23 07:14 Lab Results 03/13/23 03/13/23 03/13/23 Range/Units 14:43 14:43 14:43 WBC 9.8 (3.8-10.6) k/uL RBC 4.89 (4.30-5.90) m/uL Hgb 14.1 (13.0-17.5) gm/dL Hct 44.7 (39.0-53.0) % MCV 91.4 (80.0-100.0) fL MCH 28.8 (25.0-35.0) pg MCHC 31.6 (31.0-37.0) g/dL RDW 13.5 (11.5-15.5) % Plt Count 358 (150-450) k/uL MPV 8.8 Neutrophils % 81 % Lymphocytes % 10 % Monocytes % 6 % Eosinophils % 2 % Basophils % 0 % Neutrophils # 7.9 H (1.3-7.7) k/uL Lymphocytes # 0.9 L (1.0-4.8) k/uL Monocytes # 0.6 (0-1.0) k/uL Eosinophils # 0.2 (0-0.7) k/uL Basophils # 0.0 (0-0.2) k/uL Hypochromasia Slight PT 10.4 (10.0-12.5) sec INR 0.9 (<1.2) APTT 24.6 (22.0-30.0) sec Sodium 127 L (137-145) mmol/L Potassium 5.6 H (3.5-5.1) mmol/L Chloride 96 L (98-107) mmol/L Carbon Dioxide 10 L (22-30) mmol/L Anion Gap 21 mmol/L BUN 86 H (9-20) mg/dL Creatinine 2.51 H (0.66-1.25) mg/dL Est GFR (CKD-EPI)AfAm 29 (>60 ml/min/1.73 sqM) Est GFR (CKD-EPI)NonAf 25 (>60 ml/min/1.73 sqM) Glucose 466 H (74-99) mg/dL Estimated Ave Glu mg/dL mg/dL Hemoglobin A1c (<=6.0) % Plasma Lactic Acid Riley (0.7-2.0) mmol/L Calcium 11.3 H (8.4-10.2) mg/dL Phosphorus (2.5-4.5) mg/dL Magnesium (1.6-2.3) mg/dL Total Bilirubin 0.7 (0.2-1.3) mg/dL AST 27 (17-59) U/L ALT 24 (4-49) U/L Alkaline Phosphatase 73 (38-126) U/L Troponin I (0.000-0.034) ng/mL Total Protein 9.5 H (6.3-8.2) g/dL Albumin 3.7 (3.5-5.0) g/dL Acetone, Qual (Negative) Influenza Type A (PCR) (Not Detectd) Influenza Type B (PCR) (Not Detectd) RSV (PCR) (Not Detectd) SARS-CoV-2 (PCR) (Not Detectd) 03/13/23 03/13/23 03/13/23 Range/Units 14:43 14:43 14:43 WBC (3.8-10.6) k/uL RBC (4.30-5.90) m/uL Hgb (13.0-17.5) gm/dL Hct (39.0-53.0) % MCV (80.0-100.0) fL MCH (25.0-35.0) pg MCHC (31.0-37.0) g/dL RDW (11.5-15.5) % Plt Count (150-450) k/uL MPV Neutrophils % % Lymphocytes % % Monocytes % % Eosinophils % % Basophils % % Neutrophils # (1.3-7.7) k/uL Lymphocytes # (1.0-4.8) k/uL Monocytes # (0-1.0) k/uL Eosinophils # (0-0.7) k/uL Basophils # (0-0.2) k/uL Hypochromasia PT (10.0-12.5) sec INR (<1.2) APTT (22.0-30.0) sec Sodium (137-145) mmol/L Potassium (3.5-5.1) mmol/L Chloride (98-107) mmol/L Carbon Dioxide (22-30) mmol/L Anion Gap mmol/L BUN (9-20) mg/dL Creatinine (0.66-1.25) mg/dL Est GFR (CKD-EPI)AfAm (>60 ml/min/1.73 sqM) Est GFR (CKD-EPI)NonAf (>60 ml/min/1.73 sqM) Glucose (74-99) mg/dL Estimated Ave Glu mg/dL mg/dL Hemoglobin A1c (<=6.0) % Plasma Lactic Acid Riley 1.2 (0.7-2.0) mmol/L Calcium (8.4-10.2) mg/dL Phosphorus (2.5-4.5) mg/dL Magnesium (1.6-2.3) mg/dL Total Bilirubin (0.2-1.3) mg/dL AST (17-59) U/L ALT (4-49) U/L Alkaline Phosphatase (38-126) U/L Troponin I 0.015 (0.000-0.034) ng/mL Total Protein (6.3-8.2) g/dL Albumin (3.5-5.0) g/dL Acetone, Qual (Negative) Influenza Type A (PCR) Not Detected (Not Detectd) Influenza Type B (PCR) Not Detected (Not Detectd) RSV (PCR) Not Detected (Not Detectd) SARS-CoV-2 (PCR) Not Detected (Not Detectd) 03/13/23 03/13/23 Range/Units 14:43 14:43 WBC (3.8-10.6) k/uL RBC (4.30-5.90) m/uL Hgb (13.0-17.5) gm/dL Hct (39.0-53.0) % MCV (80.0-100.0) fL MCH (25.0-35.0) pg MCHC (31.0-37.0) g/dL RDW (11.5-15.5) % Plt Count (150-450) k/uL MPV Neutrophils % % Lymphocytes % % Monocytes % % Eosinophils % % Basophils % % Neutrophils # (1.3-7.7) k/uL Lymphocytes # (1.0-4.8) k/uL Monocytes # (0-1.0) k/uL Eosinophils # (0-0.7) k/uL Basophils # (0-0.2) k/uL Hypochromasia PT (10.0-12.5) sec INR (<1.2) APTT (22.0-30.0) sec Sodium (137-145) mmol/L Potassium (3.5-5.1) mmol/L Chloride (98-107) mmol/L Carbon Dioxide (22-30) mmol/L Anion Gap mmol/L BUN (9-20) mg/dL Creatinine (0.66-1.25) mg/dL Est GFR (CKD-EPI)AfAm (>60 ml/min/1.73 sqM) Est GFR (CKD-EPI)NonAf (>60 ml/min/1.73 sqM) Glucose (74-99) mg/dL Estimated Ave Glu mg/dL 226 mg/dL Hemoglobin A1c 9.5 H (<=6.0) % Plasma Lactic Acid Riley (0.7-2.0) mmol/L Calcium (8.4-10.2) mg/dL Phosphorus 6.8 H (2.5-4.5) mg/dL Magnesium 2.6 H (1.6-2.3) mg/dL Total Bilirubin (0.2-1.3) mg/dL AST (17-59) U/L ALT (4-49) U/L Alkaline Phosphatase (38-126) U/L Troponin I (0.000-0.034) ng/mL Total Protein (6.3-8.2) g/dL Albumin (3.5-5.0) g/dL Acetone, Qual Positive (Negative) Influenza Type A (PCR) (Not Detectd) Influenza Type B (PCR) (Not Detectd) RSV (PCR) (Not Detectd) SARS-CoV-2 (PCR) (Not Detectd) - Radiology Data Radiology results: report reviewed, image reviewed Disposition Clinical Impression: DKA (diabetic ketoacidosis), Pneumonia involving left lung Disposition: ADMITTED IP TO THIS HOSP
--- NOTE | 2023-03-13 14:17 | XR ---
EXAMINATION TYPE: XR chest 2V DATE OF EXAM: 03/13/2023 COMPARISON: 06/24/2022. HISTORY: Cough. TECHNIQUE: Frontal and lateral views of the chest are obtained. IMPRESSION: There is extensive new airspace disease seen throughout the left lung which is suspicious for pneumon ia. This is likely superimposed on chronic interstitial changes. The cardiac silhouette and pulmonary vessels are within normal limits.
[2023-03-13] MEDS ORDERED: IPRATROPIUM-ALBUTEROL 3 ML NEB INHALATION STA (15:36)
[2023-03-13 15:42] LABS: Basophils % (A) 0 %; Eosinophils # (A) 0.2 k/uL (0-0.7); Eosinophils % (A) 2 %; HCT 44.7 % (39.0-53.0); HGB 14.1 gm/dL (13.0-17.5); Hypochromasia Slight; INR 0.9 (<1.2); Lymphocytes # (A) 0.9 k/uL (1.0-4.8); Lymphocytes % (A) 10 %; MCH 28.8 pg (25.0-35.0); MCHC 31.6 g/dL (31.0-37.0); MCV 91.4 fL (80.0-100.0); Mean Platelet Volume 8.8; Monocytes # (A) 0.6 k/uL (0-1.0); Monocytes % (A) 6 %; Neutrophils # (A) 7.9 k/uL (1.3-7.7); Neutrophils % (A) 81 %; Partial Thromboplastin Time 24.6 sec (22.0-30.0); Platelet Count 358 k/uL (150-450); Prothrombin Time 10.4 sec (10.0-12.5); RBC 4.89 m/uL (4.30-5.90); RDW 13.5 % (11.5-15.5); WBC 9.8 k/uL (3.8-10.6)
[2023-03-13 16:21] LABS: ALT 24 U/L (4-49); AST 27 U/L (17-59); African American GFR (CKD) 29 (>60 ml/min/1.73 sqM); Albumin 3.7 g/dL (3.5-5.0); Alkaline Phosphatase 73 U/L (38-126); Anion Gap 21 mmol/L; Blood Urea Nitrogen 86 mg/dL (9-20); Calcium 11.3 mg/dL (8.4-10.2); Carbon Dioxide 10 mmol/L (22-30); Chloride 96 mmol/L (98-107); Glucose 466 mg/dL (74-99); Non-African American GFR(CKD) 25 (>60 ml/min/1.73 sqM); Potassium 5.6 mmol/L (3.5-5.1); Sodium 127 mmol/L (137-145); Total Bilirubin 0.7 mg/dL (0.2-1.3); Total Protein 9.5 g/dL (6.3-8.2)
[2023-03-13] MEDS ORDERED: AZITHROMYCIN 500 MG in SODIUM CHLORIDE 0.9% 250 ML IVPB STA (16:36)
[2023-03-13] MEDS ORDERED: PNEUMONIA PROTOCOL UTILIZED 1 EACH MISC PO PRN (16:36)
[2023-03-13] MEDS ORDERED: INSULIN REGULAR BOLUS (FROM DRIP BAG) IV ONE (16:37)
[2023-03-13] MEDS ORDERED: SODIUM CHLORIDE 0.9% 2,000 ML IV STA (16:39)
[2023-03-13] MEDS ORDERED: MECLIZINE 25 MG TAB PO PRN (16:55)
[2023-03-13] MEDS ORDERED: ALBUTEROL NEBULIZED 2.5 MG/3 ML INHALATION PRN (16:55)
[2023-03-13 17:54] LABS: Magnesium 2.6 mg/dL (1.6-2.3); Phosphorus 6.8 mg/dL (2.5-4.5)
[2023-03-13] MEDS: INSULIN REGULAR 100 UNIT in SODIUM CHLORIDE 0.9% 100 ML IV SCH (18:18)
[2023-03-13] MEDS ORDERED: ONDANSETRON 4 MG/2 ML VIAL IVP PRN (18:25)
[2023-03-13] MEDS ORDERED: NALOXONE 0.4 MG/ML 1 ML VIAL IV PRN (18:25)
[2023-03-13] MEDS ORDERED: MORPHINE SULFATE 4 MG/ML SYRINGE IV PRN (18:25)
[2023-03-13] MEDS ORDERED: ACETAMINOPHEN TAB 325 MG TAB PO PRN (18:25)
[2023-03-13 18:32] LABS: VBG PH 7.15 (7.31-7.41)
[2023-03-13] MEDS: SODIUM CHLORIDE 0.9% 1,000 ML IV SCH ×2 (18:47→23:18)
[2023-03-13 19:21] LABS: African American GFR (CKD) 34 (>60 ml/min/1.73 sqM); Anion Gap 21 mmol/L; Blood Urea Nitrogen 81 mg/dL (9-20); Chloride 103 mmol/L (98-107); Glucose 332 mg/dL (74-99); Non-African American GFR(CKD) 29 (>60 ml/min/1.73 sqM); Phosphorus 5.3 mg/dL (2.5-4.5); Potassium 4.8 mmol/L (3.5-5.1); Sodium 133 mmol/L (137-145)
[2023-03-13] MEDS ORDERED: INSULIN DETEMIR (LEVEMIR) 100 UNIT/ML SYR SQ SCH (19:30)
[2023-03-13 19:40] LABS: Glucose,Whole Blood 252 mg/dL (70-110)
[2023-03-13] MEDS: D5-0.45% NACL WITH KCL 20MEQ/L 1,000 ML IV SCH (20:35)
[2023-03-13 20:46] LABS: Glucose,Whole Blood 186 mg/dL (70-110)
[2023-03-13 20:48] LABS: Carbon Dioxide 9 mmol/L (22-30)
[2023-03-13 22:00] LABS: Glucose,Whole Blood 153 mg/dL (70-110)
[2023-03-13] MEDS: SODIUM CHLORIDE 5% OPHTH DROPS 15 ML BTL BOTH EYES SCH (22:42)
[2023-03-13] MEDS: METOPROLOL TARTRATE 50 MG TAB PO SCH (22:43)
[2023-03-13] MEDS: PANTOPRAZOLE 40 MG TABLET PO SCH (22:43)
[2023-03-13 22:46] LABS: Glucose,Whole Blood 147 mg/dL (70-110)
[2023-03-13 23:43] LABS: Glucose,Whole Blood 128 mg/dL (70-110)
[2023-03-14 00:49] LABS: Glucose,Whole Blood 130 mg/dL (70-110)
[2023-03-14 01:35] LABS: African American GFR (CKD) 41 (>60 ml/min/1.73 sqM); Anion Gap 13 mmol/L; Blood Urea Nitrogen 80 mg/dL (9-20); Carbon Dioxide 15 mmol/L (22-30); Chloride 106 mmol/L (98-107); Glucose 135 mg/dL (74-99); Non-African American GFR(CKD) 35 (>60 ml/min/1.73 sqM); Phosphorus 3.6 mg/dL (2.5-4.5); Potassium 4.5 mmol/L (3.5-5.1); Sodium 134 mmol/L (137-145)
[2023-03-14 02:11] LABS: Glucose,Whole Blood 146 mg/dL (70-110)
[2023-03-14 02:36] LABS: Appearance,Urine Clear (Clear); Bilirubin,Urine Negative (Negative); Blood,Urine Small (Negative); Color,Urine Yellow; Glucose,Urine (UA) 4+ (Negative); Ketones,Urine 1+ (Negative); Protein,Urine 1+ (Negative); Specific Gravity,Urine 1.015 (1.001-1.035); Urobilinogen,Urine <2.0 mg/dL (<2.0)
[2023-03-14 02:37] LABS: Leukocyte Esterase,Urine Moderate (Negative); Nitrite,Urine Negative (Negative)
[2023-03-14 02:41] LABS: Mucus,Urine Rare /hpf; RBC,Urine 5 /hpf (0-5); WBC,Urine 23 /hpf (0-5)
[2023-03-14 03:25] LABS: Glucose,Whole Blood 168 mg/dL (70-110)
[2023-03-14] MEDS: D5-0.45% NACL WITH KCL 20MEQ/L 1,000 ML IV SCH ×2 (03:29→09:51)
[2023-03-14 04:16] LABS: Glucose,Whole Blood 197 mg/dL (70-110)
[2023-03-14 05:27] LABS: Glucose,Whole Blood 218 mg/dL (70-110)
[2023-03-14 06:29] LABS: Glucose,Whole Blood 253 mg/dL (70-110)
[2023-03-14 07:51] LABS: Glucose,Whole Blood 240 mg/dL (70-110)
[2023-03-14] MEDS: SODIUM CHLORIDE 0.9% 1,000 ML IV SCH (07:54)
[2023-03-14] MEDS ORDERED: NON FORMULARY DRUG (Vitamin B Complex [Vitamin B Complex] 1 EACH Capsule) PO SCH (09:00)
[2023-03-14] MEDS ORDERED: NON FORMULARY DRUG (Turmeric Root Extract [Turmeric] 500 MG Tablet) PO SCH (09:00)
[2023-03-14] MEDS ORDERED: [UNRECOGNIZED DRUG - OTHER] PO SCH (09:00)
[2023-03-14 09:01] LABS: Glucose,Whole Blood 266 mg/dL (70-110)
--- NOTE | 2023-03-14 09:29 | P.CNPUL ---
History of Present Illness Consult date: 03/14/23 Reason for consult: dyspnea, COPD, pneumonia History of present illness: This is a very pleasant 72-year-old male patient. He is known to me. I recently met this patient office regarding his chronic lung problems. He has chronic exertional dyspnea and cough. He had [id number] smoking history and he quit smoking back in 2016. He is known to have a renal mass and he has undergone a partial nephrectomy and his diseases been in remission. He also has issues with ITP and paraproteinemia/questionable multiple myeloma. He was having some difficulties in breathing and I saw him in the office. I started the patient trilogy of that the one inhalation a day. 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 Over the past 24-48 hours, the patient becomes lethargic and weak and based on that the patient ended up coming into the hospital. A repeat chest x-ray was done that showed significant consolidation of the left lung. The patient was started on IV antibiotics. He is known to have hypertension, hyperlipidemia, diabetes m ellitus type 2 and chronic stage III kidney disease. In the emergency, his white cell count was at 9.8 with a hemoglobin of 14.1. Normal coagulation profile. The serum bicarb was down to 1 9 and a BUN was at 2.3 which improved and is currently down to 1.8. The most recent blood work shows a BUN of 18 with a creatinine of 1.8. Serum bicarbs improved and is currently up to 15. Patient is currently on insulin drip at 2 units an hour. He is also on D5 half-normal saline at the rate of 150 mL an hour. He did have +4 sugars and his UA and +1 ketones. He was positive for acetones. The viral screen was negative. He was started on broad-spectrum antibiotics and currently he is on Zithromax and he was also started on Rocephin. Review of Systems Constitutional: Reports fatigue, Reports weakness Eyes: denies as per HPI, denies blurred vision, denies bulging eye, denies decreased vision, denies diplopia, denies discharge, denies dry eye, denies irritation, denies itching, denies pain, denies photophobia, denies loss of pe ripheral vision, denies loss of vision, denies tunnel vision/blind spots Ears: deny: decreased hearing, ear discharge, earache, tinnitus Ears, nose, mouth and throat: Reports as per HPI Breasts: absent: as per HPI, gynecomastia Cardiovascular: Reports decreased exercise tolerance, Reports dyspnea on exertion Respiratory: Reports cough, Reports dyspnea Gastrointestinal: Reports as per HPI Genitourinary: Reports as per HPI Musculoskeletal: Reports as per HPI Musculoskeletal: absent: ankle pain, ankle stiffness, ankle swelling Integumentary: Reports as per HPI Neurological: Reports as per HPI Psychiatric: Reports as per HPI Endocrine: Reports fatigue, Reports high blood sugars Hematologic/Lymphatic: Reports as per HPI Allergic/Immunologic: Reports as per HPI Past Medical History Past Medical History: Cancer, COPD, Diabetes Mellitus, GERD/Reflux, Hyperlipidemia, Hypertension, Thyroid Disorder Additional Past Medical History / Comment(s): hiatal hernia, hx kidney cancer with surgery. left , skin cancer., states iron infusion Mar 2021., states elevat ed protein in his blood. History of Any Multi-Drug Resistant Organisms: None Reported Past Surgical History: Heart Catheterization, Hernia Repair, Tonsillectomy Additional Past Surgical History / Comment(s): partial left kidney removed for cancer, skin cancer removed from left side of face with graft, inguinal hernia repair x2. bone marrow biopsy 06/14/21 Past Anesthesia/Blood Transfusion Reactions: No Reported Reaction Additional Past Anesthesia/Blood Transfusion Reaction / Comment(s): no blood transfusion reaction Past Psychological History: No Psychological Hx Reported Smoking Status: Former smoker Past Alcohol Use History: None Reported Past Drug Use History: None Reported - Past Family History Mother Family Medical History: No Reported History Medications and Allergies Home Medications Medication Instructions Recorded Confirmed Type Atorvastatin [Lipitor] 20 mg PO DAILY 05/03/20 03/13/23 History Fenofibrate Nanocrystallized 145 mg PO DAILY 05/03/20 03/13/23 History [Fenofibrate] Losartan Potassium 100 mg PO DAILY 05/03/20 03/13/23 History Metoprolol Tartrate [Lopressor] 50 mg PO BID 05/03/20 03/13/23 History Multivit-Min/FA/Lycopen/Lutein 1 tab PO DAILY 05/03/20 03/13/23 History [Centrum Silver Tablet] Pantoprazole Sodium 40 mg PO HS 05/03/20 03/13/23 History Cholecalciferol [Vitamin D3 (25 50 mcg PO DAILY 05/16/21 03/13/23 History Mcg = 1000 Iu)] Vitamin B Complex 1 cap PO DAILY 05/16/21 03/13/23 History Dapagliflozin Propanediol [Farxiga] 10 mg PO DAILY 01/01/22 03/13/23 History Tamsulosin [Flomax] 0.4 mg PO DAILY #10 cap 01/01/22 03/13/23 Rx Turmeric Root Extract [Turmeric] 1,000 mg PO DAILY 01/01/22 03/13/23 History Albuterol Inhaler [Ventolin Hfa 1 - 2 puff INHALATION RT-QID PRN 03/06/2303/13 History Inhaler] Fluticasone/Umeclidin/Vilanter 1 puff INHALATION RT-DAILY 03/06/23 03/13/23 History [Trelegy Ellipta 100-62.5-25] Sodium Chloride 5% Ophth Soln 1 drops BOTH EYES BID 03/06/23 03/13/23 History [Mary 128] Insulin Glargine,Hum.rec.anlog 23 units SQ DAILY@1800 03/13/23 03/13/23 History [Lantus Solostar Pen] L.acidoph,Paracasei, B.lactis 1 cap PO DAILY 03/13/23 03/13/23 History [Probiotic] Levothyroxine Sodium [Synthroid] 25 mcg PO DAILY 03/13/23 03/13/23 History Meclizine [Antivert] 25 mg PO TID PRN 03/13/23 03/13/23 History Nitroglycerin Sl Tabs [Nitrostat] 0.4 mg SL Q5M PRN 03/13/23 03/13/23 History Superbeets Circulation Gummies 1 tab PO DAILY 03/13/23 03/13/23 History Vitamin C 200mg 1 tab PO DAILY 03/13/23 03/13/23 History Allergies Allergy/AdvReac Type Severity Reaction Status Date / Time Penicillins Allergy Swelling Verified 03/13/23 16:52 Physical Exam Vitals: Vital Signs Temp Pulse Resp BP Pulse Ox 03/14/23 06:00 88 20 110/59 92 L 03/14/23 05:00 102 H 18 87/43 92 L 03/14/23 04:00 102 H 20 111/48 91 L 03/14/23 03:33 98 18 123/63 91 L 03/13/23 22:44 98 18 123/63 92 L 03/13/23 17:00 87 22 115/76 95 03/13/23 16:25 87 03/13/23 16:16 87 03/13/23 15:00 20 03/13/23 12:53 97.4 F L 92 18 103/60 93 L Intake and Output 03/13/23 03/14/23 03/14/23 22:59 06:59 14:59 Intake Total 37.041 15.006 3.549 Balance 37.041 15.006 3.549 Intake: Intake, IV Titration 37.041 15.006 3.549 Amount Insulin Regular 100 unit 37.041 15.006 3.549 In Sodium Chloride 0.9% 100 ml @ 0.1 UNITS/KG/HR 8.475 mls/hr IV .[id number] [facility] Rx#:[id number] General Appearance no diaphoresis, dyspnea, pallor, or respiratory distress and speech not interrupted by breaths, not cachectic, well nourished, and appears well. The patient is currently on oxygen at 3 L nasal cannula. Alert and awake and communicating. Head exam was generally normal. There was no scleral icterus or corneal arcus. Mucous membranes were moist. Neck was supple and without jugular venous distension, thyromegaly, or carotid bruits. Carotids were easily palpable bilaterally. There was no adenopathy. HEENT no pursed lip breathing, jugular venous distention, mucous membrane cyanosis, or perioral cyanosis and mallampati classification: class 1. Chest no retractions, rhonchi, hyperinflation, barrel chest, sternocleidomastoid muscle contractions, supraclavicular retractions, intercostal retractions, prolonged expiratory wheezing, or decreased air movement and decreased air movement and (normal) adventitious sounds: rales / crackles: bilaterally: midlung higgins. Heart no right ventricular heave, distant heart sounds, or s3 gallop and (normal) jugular vein and vein: jugular venous distention: by 0cm. GI bowel sounds: hyperactive (borborygmi) and diminished or absent. Extremities no cyanosis, clubbing, or edema. Neurologic no somnolence, confusion, or decreased mental status. Assisstive Devices: ambulates with no assitive devices. Gait and Mobility: gait WNL and full weight bearing. Skin: General Appearance normal and (normal) normal except as noted. Results - Laboratory Findings CBC and BMP: 03/13/23 14:43 03/13/23 23:01 PT/INR, D-dimer PT 10.4 sec (10.0-12.5) 03/13/23 14:43 INR 0.9 (<1.2) 03/13/23 14:43 Abnormal lab findings: Abnormal Labs 03/13/23 03/13/23 03/13/23 14:43 14:43 14:43 Neutrophils # 7.9 H Lymphocytes # 0.9 L VBG pH VBG HCO3 Sodium 127 L Potassium 5.6 H Chloride 96 L Carbon Dioxide 10 L BUN 86 H Creatinine 2.51 H Glucose 466 H POC Glucose (mg/dL) Calcium 11.3 H Phosphorus 6.8 H Magnesium 2.6 H Total Protein 9.5 H Procalcitonin Urine Glucose (UA) Urine Ketones Urine WBC Urine Mucus 03/13/23 03/13/23 03/13/23 17:03 17:03 18:58 Neutrophils # Lymphocytes # VBG pH 7.15 L* VBG HCO3 15 L Sodium 133 L Potassium Chloride Carbon Dioxide 9 L* BUN 81 H Creatinine 2.18 H Glucose 332 H POC Glucose (mg/dL) Calcium Phosphorus 5.3 H Magnesium Total Protein Procalcitonin 2.45 H Urine Glucose (UA) Urine Ketones Urine WBC Urine Mucus 03/13/23 03/13/23 03/13/23 19:37 20:34 21:49 Neutrophils # Lymphocytes # VBG pH VBG HCO3 Sodium Potassium Chloride Carbon Dioxide BUN Creatinine Glucose POC Glucose (mg/dL) 252 H 186 H 153 H Calcium Phosphorus Magnesium Total Protein Procalcitonin Urine Glucose (UA) Urine Ketones Urine WBC Urine Mucus 03/13/23 03/13/23 03/13/23 22:38 23:01 23:37 Neutrophils # Lymphocytes # VBG pH VBG HCO3 Sodium 134 L Potassium Chloride Carbon Dioxide 15 L BUN 80 H Creatinine 1.86 H Glucose 135 H POC Glucose (mg/dL) 147 H 128 H Calcium Phosphorus Magnesium Total Protein Procalcitonin Urine Glucose (UA) Urine Ketones Urine WBC Urine Mucus 03/14/23 03/14/23 03/14/23 00:41 01:25 02:09 Neutrophils # Lymphocytes # VBG pH VBG HCO3 Sodium Potassium Chloride Carbon Dioxide BUN Creatinine Glucose POC Glucose (mg/dL) 130 H 146 H Calcium Phosphorus Magnesium Total Protein Procalcitonin Urine Glucose (UA) 4+ H Urine Ketones 1+ H Urine WBC 23 H Urine Mucus Rare H 03/14/23 03/14/23 03/14/23 03:24 04:14 05:24 Neutrophils # Lymphocytes # VBG pH VBG HCO3 Sodium Potassium Chloride Carbon Dioxide BUN Creatinine Glucose POC Glucose (mg/dL) 168 H 197 H 218 H Calcium Phosphorus Magnesium Total Protein Procalcitonin Urine Glucose (UA) Urine Ketones Urine WBC Urine Mucus 03/14/23 03/14/23 03/14/23 06:27 07:48 08:59 Neutrophils # Lymphocytes # VBG pH VBG HCO3 Sodium Potassium Chloride Carbon Dioxide BUN Creatinine Glucose POC Glucose (mg/dL) 253 H 240 H 266 H Calcium Phosphorus Magnesium Total Protein Procalcitonin Urine Glucose (UA) Urine Ketones Urine WBC Urine Mucus Assessment and Plan Plan: Acute bilateral pneumonia with extensive consolidation of the left lung. Acute hypoxic respiratory failure currently on 3 L of O2 nasal cannula Advanced COPD with an FEV1 of 61% of predicted and the patient has chronic cystic changes in his lungs. 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 The patient presented with anion gap metabolic acidosis and is improving) is currently on insulin at 2.4 units an hour and D5 half-normal saline at the rate of 150 mL an hour Acute on top of chronic kidney disease secondary to dehydration/DKA, improving and the creatinine is down to 1.8 Hypertension Hyperlipidemia History of immune thrombocytopenia History of kidney tumor currently in remission and the patient has undergone previous partial nephrectomy Diabetes mellitus type 2 maintain on Lantus insulin at a dose of 27 units once a day and a slight scale coverage History of vitamin D deficiency History of colonic polyps and diverticulosis Plan Repeat electrolytes 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
[2023-03-14] MEDS: SYMBICORT 80-4.5 MCG INHALER INHALATION SCH ×2 (09:44→21:15)
[2023-03-14] MEDS: IPRATROPIUM 0.5 MG/2.5 ML NEBU INHALATION SCH ×4 (09:44→21:15)
[2023-03-14] MEDS: SODIUM CHLORIDE 5% OPHTH DROPS 15 ML BTL BOTH EYES SCH ×2 (09:47→20:37)
[2023-03-14] MEDS: MULTIVITAMINS, THERA 1 EACH TAB PO SCH (09:48)
[2023-03-14] MEDS: ATORVASTATIN 20 MG TAB PO SCH (09:48)
[2023-03-14] MEDS: ASCORBIC ACID 500 MG TAB PO SCH (09:48)
[2023-03-14] MEDS: FENOFIBRATE 160 MG TAB PO SCH (09:48)
[2023-03-14] MEDS: LOSARTAN 50 MG TAB PO SCH (09:49)
[2023-03-14] MEDS: TAMSULOSIN 0.4 MG CAP.ER.24H PO SCH (09:49)
[2023-03-14] MEDS: METOPROLOL TARTRATE 50 MG TAB PO SCH ×2 (09:49→20:34)
[2023-03-14] MEDS: LEVOTHYROXINE 25 MCG TAB PO SCH (09:49)
[2023-03-14] MEDS: LACTOBACILLUS ACIDOPHILUS/PECT 1 EACH CAPSULE PO SCH (09:49)
[2023-03-14] MEDS: CHOLECALCIFEROL 25 MCG (1000 IU) TABLET PO SCH (09:50)
[2023-03-14 10:37] LABS: Glucose,Whole Blood 216 mg/dL (70-110)
[2023-03-14] MEDS ORDERED: DEXTROSE 50% SYRINGE 50 ML IVP PRN ×2 (10:59)
[2023-03-14] MEDS: INSULIN REGULAR 100 UNIT in SODIUM CHLORIDE 0.9% 100 ML IV SCH (11:30)
[2023-03-14 12:31] LABS: Glucose,Whole Blood 262 mg/dL (70-110)
[2023-03-14] MEDS: INSULIN ASPART (NovoLOG) 100 UNIT/ML VIAL SQ SCH ×3 (12:45→20:34)
[2023-03-14] MEDS: DAPAGLIFLOZIN PROPANEDIOL 10 MG TABLET PO SCH (12:46)
[2023-03-14] MEDS: INSULIN DETEMIR (LEVEMIR) 100 UNIT/ML SYR SQ SCH (12:46)
--- NOTE | 2023-03-14 15:46 | P.HPIM ---
History of Present Illness H&P Date: 03/14/23 Josue Blackburn, is a 73-year-old male who presented to [facility] emergency room with a chief complaint of shortness of breath, cough and generalized weakness He was evaluated in the emergency room vital examination on presentation revealed a temperature of 97.4 pulse 92 respiration 18 blood pressure 103/60 pulse ox 93% on room air Laboratory data revealed a white blood count of 9.8 hemoglobin 14.1 platelet count 358 sodium 134 potassium 4.5 chloride 106 CO2 15 BUN 18 creatinine 1.86 Procalcitonin 2.45 Testing in the emergency room revealed extensive new air space disease throu ghout the left lung, suspicious for pneumonia. EKG revealed sinus rhythm with left anterior fascicular block and poor R-wave progression in the anterior leads Patient was admitted to medical floor for further evaluation and treatment Past Medical History Past Medical History: Cancer, COPD, Diabetes Mellitus, GERD/Reflux, Hyperlipidemia, Hypertension, Thyroid Disorder Additional Past Medical History / Comment(s): hiatal hernia, hx kidney cancer with surgery. left , skin cancer., states iron infusion Mar 2021., states elevated protein in his blood. History of Any Multi-Drug Resistant Organisms: None Reported Past Surgical History: Heart Catheterization, Hernia Repair, Tonsillectomy Additional Past Surgical History / Comment(s): partial left kidney removed for cancer, skin cancer removed from left side of face with graft, inguinal hernia repair x2. bone marrow biopsy 06/14/21 Past Anesthesia/Blood Transfusion Reactions: No Reported Reaction Additional Past Anesthesia/Blood Transfusion Reaction / Comment(s): no blood transfusion reaction Past Psychological History: No Psychological Hx Reported Smoking Status: Former smoker Past Alcohol Use History: None Reported Past Drug Use History: None Reported - Past Family History Mother Family Medical History: No Reported History Medications and Allergies Home Medications Medication Instructions Recorded Confirmed Type Atorvastatin [Lipitor] 20 mg PO DAILY 05/03/20 03/13/23 History Fenofibrate Nanocrystallized 145 mg PO DAILY 05/03/20 03/13/23 History [Fenofibrate] Losartan Potassium 100 mg PO DAILY 05/03/20 03/13/23 History Metoprolol Tartrate [Lopressor] 50 mg PO BID 05/03/20 03/13/23 History Multivit-Min/FA/Lycopen/Lutein 1 tab PO DAILY 05/03/20 03/13/23 History [Centrum Silver Tablet] Pantoprazole Sodium 40 mg PO HS 05/03/20 03/13/23 History Cholecalciferol [Vitamin D3 (25 50 mcg PO DAILY 05/16/21 03/13/23 History Mcg = 1000 Iu)] Vitamin B Complex 1 cap PO DAILY 05/16/21 03/13/23 History Dapagliflozin Propanediol [Farxiga] 10 mg PO DAILY 01/01/22 03/13/23 History Tamsulosin [Flomax] 0.4 mg PO DAILY #10 cap 01/01/22 03/13/23 Rx Turmeric Root Extract [Turmeric] 1,000 mg PO DAILY 01/01/22 03/13/23 History Albuterol Inhaler [Ventolin Hfa 1 - 2 puff INHALATION RT-QID PRN 03/06/23 03/13/23 History Inhaler] Fluticasone/Umeclidin/Vilanter 1 puff INHALATION RT-DAILY 03/06/23 03/13/23 History [Trelegy Ellipta 100-62.5-25] Sodium Chloride 5% Ophth Soln 1 drops BOTH EYES BID 03/06/23 03/13/23 History [Mary 128] Insulin Glargine,Hum.rec.anlog 23 units SQ DAILY@1800 03/13/23 03/13/23 History [Lantus Solostar Pen] L.acidoph,Paracasei, B.lactis 1 cap PO DAILY 03/13/23 03/13/23 History [Probiotic] Levothyroxine Sodium [Synthroid] 25 mcg PO DAILY 03/13/23 03/13/23 History Meclizine [Antivert] 25 mg PO TID PRN 03/13/23 03/13/23 History Nitroglycerin Sl Tabs [Nitrostat] 0.4 mg SL Q5M PRN 03/13/23 03/13/23 History Superbeets Circulation Gummies 1 tab PO DAILY 03/13/23 03/13/23 History Vitamin C 200mg 1 tab PO DAILY 03/13/23 03/13/23 History Allergies Allergy/AdvReac Type Severity Reaction Status Date / Time Penicillins Allergy Swelling Verified 03/13/23 16:52 Physical Exam Vitals: Vital Signs Temp Pulse Resp BP Pulse Ox 03/14/23 06:00 88 20 110/59 92 L 03/14/23 05:00 102 H 18 87/43 92 L 03/14/23 04:00 102 H 20 111/48 91 L 03/14/23 03:33 98 18 123/63 91 L 03/13/23 22:44 98 18 123/63 92 L 03/13/23 17:00 87 22 115/76 95 03/13/23 16:25 87 03/13/23 16:16 87 03/13/23 15:00 20 03/13/23 12:53 97.4 F L 92 18 103/60 93 L Intake and Output 03/13/23 03/14/23 03/14/23 22:59 06:59 14:59 Intake Total 37.041 15.006 3.549 Balance 37.041 15.006 3.549 Intake: Intake, IV Titration 37.041 15.006 3.549 Amount Insulin Regular 100 unit 37.041 15.006 3.549 In Sodium Chloride 0.9% 100 ml @ 0.1 UNITS/KG/HR 8.475 mls/hr IV .[id number] [facility] Rx#:[id number] In general patient is alert and oriented x 3 in no distress HEENT head normocephalic and atraumatic Neck is supple no JVD no goiter no lymphadenopathy no carotid bruit Chest examination is clear to auscultation no crackles no wheezing Cardiac exam reveals regular heart sounds S1 and S2 no gallops no murmurs Abdomen is soft nontender no organomegaly with normal bowel sounds Extremity exam reveals no edema no cyanosis or clubbing Neurological examination reveals no gross focal deficits Results CBC & Chem 7: 03/13/23 14:43 03/14/23 10:20 Labs: Abnormal Lab Results - Last 24 Hours (Table) 03/13/23 03/13/23 03/13/23 Range/Units 14:43 14:43 14:43 Neutrophils # 7.9 H (1.3-7.7) k/uL Lymphocytes # 0.9 L (1.0-4.8) k/uL VBG pH (7.31-7.41) VBG HCO3 (24-28) mmol/L Sodium 127 L (137-145) mmol/L Potassium 5.6 H (3.5-5.1) mmol/L Chloride 96 L (98-107) mmol/L Carbon Dioxide 10 L (22-30) mmol/L BUN 86 H (9-20) mg/dL Creatinine 2.51 H (0.66-1.25) mg/dL Glucose 466 H (74-99) mg/dL POC Glucose (mg/dL) (70-110) mg/dL Calcium 11.3 H (8.4-10.2) mg/dL Phosphorus 6.8 H (2.5-4.5) mg/dL Magnesium 2.6 H (1.6-2.3) mg/dL Total Protein 9.5 H (6.3-8.2) g/dL Procalcitonin (0.02-0.09) ng/mL Urine Glucose (UA) (Negative) Urine Ketones (Negative) Urine WBC (0-5) /hpf Urine Mucus (None) /hpf 03/13/23 03/13/23 03/13/23 Range/Units 17:03 17:03 18:58 Neutrophils # (1.3-7.7) k/uL Lymphocytes # (1.0-4.8) k/uL VBG pH 7.15 L* (7.31-7.41) VBG HCO3 15 L (24-28) mmol/L Sodium 133 L (137-145) mmol/L Potassium (3.5-5.1) mmol/L Chloride (98-107) mmol/L Carbon Dioxide 9 L* (22-30) mmol/L BUN 81 H (9-20) mg/dL Creatinine 2.18 H (0.66-1.25) mg/dL Glucose 332 H (74-99) mg/dL POC Glucose (mg/dL) (70-110) mg/dL Calcium (8.4-10.2) mg/dL Phosphorus 5.3 H (2.5-4.5) mg/dL Magnesium (1.6-2.3) mg/dL Total Protein (6.3-8.2) g/dL Procalcitonin 2.45 H (0.02-0.09) ng/mL Urine Glucose (UA) (Negative) Urine Ketones (Negative) Urine WBC (0-5) /hpf Urine Mucus (None) /hpf 03/13/23 03/13/23 03/13/23 Range/Units 19:37 20:34 21:49 Neutrophils # (1.3-7.7) k/uL Lymphocytes # (1.0-4.8) k/uL VBG pH (7.31-7.41) VBG HCO3 (24-28) mmol/L Sodium (137-145) mmol/L Potassium (3.5-5.1) mmol/L Chloride (98-107) mmol/L Carbon Dioxide (22-30) mmol/L BUN (9-20) mg/dL Creatinine (0.66-1.25) mg/dL Glucose (74-99) mg/dL POC Glucose (mg/dL) 252 H 186 H 153 H (70-110) mg/dL Calcium (8.4-10.2) mg/dL Phosphorus (2.5-4.5) mg/dL Magnesium (1.6-2.3) mg/dL Total Protein (6.3-8.2) g/dL Procalcitonin (0.02-0.09) ng/mL Urine Glucose (UA) (Negative) Urine Ketones (Negative) Urine WBC (0-5) /hpf Urine Mucus (None) /hpf 03/13/23 03/13/23 03/13/23 Range/Units 22:38 23:01 23:37 Neutrophils # (1.3-7.7) k/uL Lymphocytes # (1.0-4.8) k/uL VBG pH (7.31-7.41) VBG HCO3 (24-28) mmol/L Sodium 134 L (137-145) mmol/L Potassium (3.5-5.1) mmol/L Chloride (98-107) mmol/L Carbon Dioxide 15 L (22-30) mmol/L BUN 80 H (9-20) mg/dL Creatinine 1.86 H (0.66-1.25) mg/dL Glucose 135 H (74-99) mg/dL POC Glucose (mg/dL) 147 H 128 H (70-110) mg/dL Calcium (8.4-10.2) mg/dL Phosphorus (2.5-4.5) mg/dL Magnesium (1.6-2.3) mg/dL Total Protein (6.3-8.2) g/dL Procalcitonin (0.02-0.09) ng/mL Urine Glucose (UA) (Negative) Urine Ketones (Negative) Urine WBC (0-5) /hpf Urine Mucus (None) /hpf 03/14/23 03/14/23 03/14/23 Range/Units 00:41 01:25 02:09 Neutrophils # (1.3-7.7) k/uL Lymphocytes # (1.0-4.8) k/uL VBG pH (7.31-7.41) VBG HCO3 (24-28) mmol/L Sodium (137-145) mmol/L Potassium (3.5-5.1) mmol/L Chloride (98-107) mmol/L Carbon Dioxide (22-30) mmol/L BUN (9-20) mg/dL Creatinine (0.66-1.25) mg/dL Glucose (74-99) mg/dL POC Glucose (mg/dL) 130 H 146 H (70-110) mg/dL Calcium (8.4-10.2) mg/dL Phosphorus (2.5-4.5) mg/dL Magnesium (1.6-2.3) mg/dL Total Protein (6.3-8.2) g/dL Procalcitonin (0.02-0.09) ng/mL Urine Glucose (UA) 4+ H (Negative) Urine Ketones 1+ H (Negative) Urine WBC 23 H (0-5) /hpf Urine Mucus Rare H (None) /hpf 03/14/23 03/14/23 03/14/23 Range/Units 03:24 04:14 05:24 Neutrophils # (1.3-7.7) k/uL Lymphocytes # (1.0-4.8) k/uL VBG pH (7.31-7.41) VBG HCO3 (24-28) mmol/L Sodium (137-145) mmol/L Potassium (3.5-5.1) mmol/L Chloride (98-107) mmol/L Carbon Dioxide (22-30) mmol/L BUN (9-20) mg/dL Creatinine (0.66-1.25) mg/dL Glucose (74-99) mg/dL POC Glucose (mg/dL) 168 H 197 H 218 H (70-110) mg/dL Calcium (8.4-10.2) mg/dL Phosphorus (2.5-4.5) mg/dL Magnesium (1.6-2.3) mg/dL Total Protein (6.3-8.2) g/dL Procalcitonin (0.02-0.09) ng/mL Urine Glucose (UA) (Negative) Urine Ketones (Negative) Urine WBC (0-5) /hpf Urine Mucus (None) /hpf 03/14/23 03/14/23 03/14/23 Range/Units 06:27 07:48 08:59 Neutrophils # (1.3-7.7) k/uL Lymphocytes # (1.0-4.8) k/uL VBG pH (7.31-7.41) VBG HCO3 (24-28) mmol/L Sodium (137-145) mmol/L Potassium (3.5-5.1) mmol/L Chloride (98-107) mmol/L Carbon Dioxide (22-30) mmol/L BUN (9-20) mg/dL Creatinine (0.66-1.25) mg/dL Glucose (74-99) mg/dL POC Glucose (mg/dL) 253 H 240 H 266 H (70-110) mg/dL Calcium (8.4-10.2) mg/dL Phosphorus (2.5-4.5) mg/dL Magnesium (1.6-2.3) mg/dL Total Protein (6.3-8.2) g/dL Procalcitonin (0.02-0.09) ng/mL Urine Glucose (UA) (Negative) Urine Ketones (Negative) Urine WBC (0-5) /hpf Urine Mucus (None) /hpf Assessment and Plan Plan: Extensive pneumonia in the left lung Acute hypoxic respiratory failure present on admission maintained on oxygen supplements Possible sepsis awaiting blood culture results and lactic acid results Dehydration with acute kidney injury Diabetic ketoacidosis present on admission Underlying history of advanced COPD Underlying history of insulin-dependent diabetes mellitus Underlying history of hypertension Underlying history of hyperlipidemia History of immune thrombocytopenia 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
[2023-03-14 16:12] LABS: Glucose,Whole Blood 234 mg/dL (70-110)
[2023-03-14] MEDS: AZITHROMYCIN 500 MG TAB PO SCH (17:14)
[2023-03-14 20:27] LABS: Glucose,Whole Blood 283 mg/dL (70-110)
[2023-03-14] MEDS: PANTOPRAZOLE 40 MG TABLET PO SCH (20:34)
[2023-03-15 06:19] LABS: Glucose,Whole Blood 159 mg/dL (70-110)
[2023-03-15] MEDS: INSULIN ASPART (NovoLOG) 100 UNIT/ML VIAL SQ SCH ×4 (06:23→20:36)
[2023-03-15] MEDS: SYMBICORT 80-4.5 MCG INHALER INHALATION SCH ×2 (08:40→21:31)
[2023-03-15] MEDS: IPRATROPIUM 0.5 MG/2.5 ML NEBU INHALATION SCH ×4 (08:40→21:31)
[2023-03-15] MEDS: TAMSULOSIN 0.4 MG CAP.ER.24H PO SCH (08:54)
[2023-03-15] MEDS: LOSARTAN 50 MG TAB PO SCH (08:54)
[2023-03-15] MEDS: CHOLECALCIFEROL 25 MCG (1000 IU) TABLET PO SCH (08:54)
[2023-03-15] MEDS: MULTIVITAMINS, THERA 1 EACH TAB PO SCH (08:54)
[2023-03-15] MEDS: LACTOBACILLUS ACIDOPHILUS/PECT 1 EACH CAPSULE PO SCH (08:54)
[2023-03-15] MEDS: LEVOTHYROXINE 25 MCG TAB PO SCH (08:54)
[2023-03-15] MEDS: FENOFIBRATE 160 MG TAB PO SCH (08:54)
[2023-03-15] MEDS: ATORVASTATIN 20 MG TAB PO SCH (08:54)
[2023-03-15] MEDS: ASCORBIC ACID 500 MG TAB PO SCH (08:55)
[2023-03-15] MEDS: METOPROLOL TARTRATE 50 MG TAB PO SCH ×2 (08:55→20:36)
[2023-03-15] MEDS: DAPAGLIFLOZIN PROPANEDIOL 10 MG TABLET PO SCH (08:55)
[2023-03-15] MEDS: SODIUM CHLORIDE 5% OPHTH DROPS 15 ML BTL BOTH EYES SCH ×2 (09:04→20:37)
--- NOTE | 2023-03-15 10:05 | P.PN ---
Subjective Progress Note Date: 03/15/23 Josue Blackburn, is a 73-year-old male who presented to [facility] emergency room with a chief complaint of shortness of breath, cough and generalized weakness He was evaluated in the emergency room vital examination on presentation revealed a temperature of 97.4 pulse 92 respiration 18 blood pressure 103/60 pulse ox 93% on room air Laboratory data revealed a white blood count of 9.8 hemoglobin 14.1 platelet count 358 sodium 134 potassium 4.5 chloride 106 CO2 15 BUN 18 creatinine 1.86 Pr ocalcitonin 2.45 Testing in the emergency room revealed extensive new air space disease throughout the left lung, suspicious for pneumonia. EKG revealed sinus rhythm with left anterior fascicular block and poor R-wave progression in the anterior leads Patient was admitted to medical floor for further evaluation and treatment On 03/15/2023 patient is alert and oriented 3 . Patient reports improvement with cough and shortness breath. Patient remains on IV antibiotics. Pulmonary service is following. Patient denies chest pain. Patient denies nausea vomiting or diarrhea. Patient denies any urinary burning or frequency Objective - Vital Signs Vital signs: Vital Signs Temp 97.7 F 03/14/23 20:00 Pulse 118 H 03/15/23 08:52 Resp 18 03/15/23 08:52 BP 128/67 03/15/23 04:00 Pulse Ox 92 L 03/15/23 08:40 FiO2 Intake & Output 03/14/23 03/15/23 03/15/23 18:59 06:59 18:59 Intake Total 783.549 240 Balance 783.549 240 Weight 83.915 kg Intake: Intake, IV Titration 3.549 Amount Insulin Regular 100 unit 3.549 In Sodium Chloride 0.9% 100 ml @ 0.1 UNITS/KG/HR 8.475 mls/hr IV .[id number] [facility] Rx#:[id number] Oral 780 240 Other: Voiding Method Toilet Urinal # Voids 1 - Exam In general patient is alert and oriented x 3 in no distress HEENT head normocephalic and atraumatic Neck is supple no JVD no goiter no lymphadenopathy no carotid bruit Chest examination is clear to auscultation no crackles no wheezing Cardiac exam reveals regular heart sounds S1 and S2 no gallops no murmurs Abdomen is soft nontender no organomegaly with normal bowel sounds Extremity exam reveals no edema no cyanosis or clubbing Neurological examination reveals no gross focal deficits - Labs CBC & Chem 7: 03/13/23 14:43 03/14/23 10:20 Labs: Abnormal Lab Results - Last 24 Hours (Table) 03/13/23 03/14/23 03/14/23 Range/Units 14:43 10:20 10:20 Sodium 135 L (137-145) mmol/L Chloride 108 H (98-107) mmol/L Carbon Dioxide 15 L (22-30) mmol/L POC Glucose (mg/dL) (70-110) mg/dL Hemoglobin A1c 9.5 H (<=6.0) % Procalcitonin 1.11 H (0.02-0.09) ng/mL 03/14/23 03/14/23 03/14/23 Range/Units 10:34 12:30 16:10 Sodium (137-145) mmol/L Chloride (98-107) mmol/L Carbon Dioxide (22-30) mmol/L POC Glucose (mg/dL) 216 H 262 H 234 H (70-110) mg/dL Hemoglobin A1c (<=6.0) % Procalcitonin (0.02-0.09) ng/mL 03/14/23 03/15/23 Range/Units 20:24 06:12 Sodium (137-145) mmol/L Chloride (98-107) mmol/L Carbon Dioxide (22-30) mmol/L POC Glucose (mg/dL) 283 H 159 H (70-110) mg/dL Hemoglobin A1c (<=6.0) % Procalcitonin (0.02-0.09) ng/mL Microbiology - Last 24 Hours (Table) 03/13/23 17:14 Blood Culture - Preliminary Blood 03/13/23 17:08 Blood Culture - Preliminary Blood Assessment and Plan Assessment: Extensive pneumonia in the left lung Acute hypoxic respiratory failure present on admission maintained on oxygen supplements Possible sepsis awaiting blood culture results and lactic acid results Dehydration with acute kidney injury Diabetic ketoacidosis present on admission Underlying history of advanced COPD Underlying history of insulin-dependent diabetes mellitus Underlying history of hypertension Underlying history of hyperlipidemia History of immune thrombocytopenia 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
[2023-03-15 10:08] LABS: Basophils % (A) 0 %; Eosinophils # (A) 0.6 k/uL (0-0.7); Eosinophils % (A) 6 %; HCT 43.6 % (39.0-53.0); HGB 14.1 gm/dL (13.0-17.5); Hypochromasia Slight; Lymphocytes # (A) 1.4 k/uL (1.0-4.8); Lymphocytes % (A) 15 %; MCH 28.9 pg (25.0-35.0); MCHC 32.3 g/dL (31.0-37.0); MCV 89.6 fL (80.0-100.0); Mean Platelet Volume 8.7; Monocytes # (A) 0.7 k/uL (0-1.0); Monocytes % (A) 7 %; Neutrophils # (A) 6.8 k/uL (1.3-7.7); Neutrophils % (A) 70 %; Platelet Count 393 k/uL (150-450); RBC 4.87 m/uL (4.30-5.90); RDW 13.7 % (11.5-15.5); WBC 9.6 k/uL (3.8-10.6)
[2023-03-15 10:29] LABS: ALT 25 U/L (4-49); AST 27 U/L (17-59); African American GFR (CKD) 60 (>60 ml/min/1.73 sqM); Alkaline Phosphatase 69 U/L (38-126); Anion Gap 13 mmol/L; Blood Urea Nitrogen 50 mg/dL (9-20); Carbon Dioxide 17 mmol/L (22-30); Chloride 108 mmol/L (98-107); Glucose 228 mg/dL (74-99); Non-African American GFR(CKD) 52 (>60 ml/min/1.73 sqM); Potassium 4.9 mmol/L (3.5-5.1); Sodium 138 mmol/L (137-145); Total Bilirubin 0.5 mg/dL (0.2-1.3); Total Protein 8.4 g/dL (6.3-8.2)
[2023-03-15 11:30] LABS: Glucose,Whole Blood 231 mg/dL (70-110)
--- NOTE | 2023-03-15 12:11 | P.PN ---
Subjective Progress Note Date: 03/15/23 This is a very pleasant 72-year-old male patient. He is known to me. I recently met this patient office regarding his chronic lung problems. He has chronic exertional dyspnea and cough. He had [id number] smoking history and he quit smoking back in 2016. He is known to have a renal mass and he has undergone a partial nephrectomy and his diseases been in remission. He also has issues with ITP and paraproteinemia/questionable multiple myeloma. He was having some difficulties in breathing and I saw him in the office. I started the patient trilogy of that the one inhalation a day. 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 Over the past 24-48 hours, the patient becomes lethargic and weak and based on that the patient ended up coming into the hospital. A repeat chest x-ray was done that showed significant consolidation of the left lung. The patient was started on IV antibiotics. He is known to have hypertension, hyperlipidemia, diabetes mellitus type 2 and chronic stage III kidney disease. In the emergency, his white cell count was at 9.8 with a hemoglobin of 14.1. Normal coagulation profile. The serum bicarb was down to 1 9 and a BUN was at 2.3 which improved and is currently down to 1.8. The most recent blood work shows a BUN of 18 with a creatinine of 1.8. Serum bicarbs improved and is currently up to 15. Patient is currently on insulin drip at 2 units an hour. He is also on D5 half-normal saline at the rate of 150 mL an hour. He did have +4 sugars and his UA and +1 ketones. He was positive for acetones. The viral screen was negative. He was started on broad-spectrum antibiotics and currently he is on Zithromax and he was also started on Rocephin. On 03/15/2023, the patient is feeling slightly improved compared to yesterday. Continues to have a cough which is essentially dry at this point in time. Remains on Rocephin and Zithromax. He remains also on oxygen which is currently running at 2 L per minute nasal cannula with a pulse ox of 92%. The white cell cause of 9.6. Hemoglobin is at 14.1. BUN is at 50 with a creatinine of 1.36 and the patient's acute kidney injury is also improving. Anion gap is down to 12/13 and the patient's serum bicarbs of 17. The patient was started back on acting insulin and the patient is currently on Levemir 25 units along with a slight scale coverage. The patient is also on for CPAP. Objective - Vital Signs Vital signs: Vital Signs Temp 97.7 F 03/14/23 20:00 Pulse 118 H 03/15/23 08:52 Resp 18 03/15/23 08:52 BP 128/67 03/15/23 04:00 Pulse Ox 92 L 03/15/23 08:40 FiO2 Intake & Output 03/14/23 03/15/23 03/15/23 18:59 06:59 18:59 Intake Total 783.549 240 Balance 783.549 240 Weight 83.915 kg Intake: Intake, IV Titration 3.549 Amount Insulin Regular 100 unit 3.549 In Sodium Chloride 0.9% 100 ml @ 0.1 UNITS/KG/HR 8.475 mls/hr IV .[id number] [facility] Rx#:[id number] Oral 780 240 Other: Voiding Method Toilet Urinal # Voids 1 - Exam General Appearance no diaphoresis, dyspnea, pallor, or respiratory distress and speech not interrupted by breaths, not cachectic, well nourished, and appears well. The patient is currently on oxygen at 2 L nasal cannula. Alert and awake and communicating. Head exam was generally normal. There was no scleral icterus or corneal arcus. Mucous membranes were moist. Neck was supple and without jugular venous distension, thyromegaly, or carotid bruits. Carotids were easily palpable bilaterally. There was no adenopathy. HEENT no pursed lip breathing, jugular venous distention, mucous membrane cyanosis, or perioral cyanosis and mallampati classification: class 1. Chest no retractions, rhonchi, hyperinflation, barrel chest, sternocleidomastoid muscle contractions, supraclavicular retractions, intercostal retractions, prolonged expiratory wheezing, or decreased air movement and decreased air movement and (normal) adventitious sounds: rales / crackles: bilaterally: midlung higgins. Heart no right ventricular heave, distant heart sounds, or s3 gallop and (normal) jugular vein and vein: jugular venous distention: by 0cm. GI bowel sounds: hyperactive (borborygmi) and diminished or absent. Extremities no cyanosis, clubbing, or edema. Neurologic no somnolence, confusion, or decreased mental status. Assisstive Devices: ambulates with no assitive devices. Gait and Mobility: gait WNL and full weight bearing. Skin: General Appearance normal and (normal) normal except as noted. - Labs CBC & Chem 7: 03/15/23 09:09 03/15/23 09:09 Labs: Abnormal Lab Results - Last 24 Hours (Table) 03/13/23 03/14/23 03/14/23 Range/Units 14:43 10:20 10:20 Sodium 135 L (137-145) mmol/L Chloride 108 H (98-107) mmol/L Carbon Dioxide 15 L (22-30) mmol/L BUN (9-20) mg/dL Creatinine (0.66-1.25) mg/dL Glucose (74-99) mg/dL POC Glucose (mg/dL) (70-110) mg/dL Hemoglobin A1c 9.5 H (<=6.0) % Total Protein (6.3-8.2) g/dL Albumin (3.5-5.0) g/dL Procalcitonin 1.11 H (0.02-0.09) ng/mL 03/14/23 03/14/23 03/14/23 Range/Units 10:34 12:30 16:10 Sodium (137-145) mmol/L Chloride (98-107) mmol/L Carbon Dioxide (22-30) mmol/L BUN (9-20) mg/dL Creatinine (0.66-1.25) mg/dL Glucose (74-99) mg/dL POC Glucose (mg/dL) 216 H 262 H 234 H (70-110) mg/dL Hemoglobin A1c (<=6.0) % Total Protein (6.3-8.2) g/dL Albumin (3.5-5.0) g/dL Procalcitonin (0.02-0.09) ng/mL 03/14/23 03/15/23 03/15/23 Range/Units 20:24 06:12 09:09 Sodium (137-145) mmol/L Chloride 108 H (98-107) mmol/L Carbon Dioxide 17 L (22-30) mmol/L BUN 50 H (9-20) mg/dL Creatinine 1.36 H (0.66-1.25) mg/dL Glucose 228 H (74-99) mg/dL POC Glucose (mg/dL) 283 H 159 H (70-110) mg/dL Hemoglobin A1c (<=6.0) % Total Protein 8.4 H (6.3-8.2) g/dL Albumin 3.0 L (3.5-5.0) g/dL Procalcitonin (0.02-0.09) ng/mL Microbiology - Last 24 Hours (Table) 03/13/23 17:14 Blood Culture - Preliminary Blood 03/13/23 17:08 Blood Culture - Preliminary Blood Assessment and Plan Plan: Acute bilateral pneumonia with extensive consolidation of the left lung. Patient is currently on Rocephin and Zithromax. Currently on 2 L of oxygen by nasal cannula Acute hypoxic respiratory failure currently on 2 L of O2 nasal cannula Advanced COPD with an FEV1 of 61% of predicted and the patient has chronic cystic changes in his lungs. 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 The patient was taken off the insulin drip and the patient is currently on Levemir insulin and Farxiga. Anion gap is 12/13 and the serum bicarb is also improving. Acute on top of chronic kidney disease secondary to dehydration/DKA, improving a nd the creatinine is down to 1.3 Hypertension Hyperlipidemia History of immune thrombocytopenia History of kidney tumor currently in remission and the patient has undergone previous partial nephrectomy Diabetes mellitus type 2 maintain on Lantus insulin at a dose of 27 units once a day and a slight scale coverage History of vitamin D deficiency History of colonic polyps and diverticulosis Plan Repeat chest x-ray in the morning Repeat and monitor electrolytes Continue Levemir insulin 25 units daily with a possibility of increasing the dose based on the blood sugar control Obtain pro-calcitonin level level was elevated secondary to pneumonia and this is improving Sputum Gram stain and culture IV Rocephin and Zithromax Blood cultures Titrate oxygen flow to maintain saturation above 90% We'll continue to follow
[2023-03-15 16:26] LABS: Glucose,Whole Blood 325 mg/dL (70-110)
[2023-03-15] MEDS: INSULIN DETEMIR (LEVEMIR) 100 UNIT/ML SYR SQ SCH (17:54)
[2023-03-15] MEDS: AZITHROMYCIN 500 MG TAB PO SCH (17:55)
[2023-03-15 20:09] LABS: Glucose,Whole Blood 295 mg/dL (70-110)
[2023-03-15] MEDS: PANTOPRAZOLE 40 MG TABLET PO SCH (20:36)
[2023-03-16 06:26] LABS: Glucose,Whole Blood 126 mg/dL (70-110)
[2023-03-16] MEDS: INSULIN ASPART (NovoLOG) 100 UNIT/ML VIAL SQ SCH ×4 (06:31→20:45)
--- NOTE | 2023-03-16 07:15 | XR ---
EXAMINATION TYPE: XR chest 1V DATE OF EXAM: 03/16/2023 COMPARISON: 03/13/2023 HISTORY: Difficulty breathing TECHNIQUE: Single frontal view of the chest is obtained. FINDINGS: Areas of consolidation involving the left lung are stable. Underlying COPD and chronic pul monary fibrosis suspected. No sizable pneumothorax. Heart size normal. Elevated left hemidiaphragm. IMPRESSION: Stable left-sided consolidation correlate for pneumonia. Follow-up to resolution to excl ude other etiologies.
[2023-03-16] MEDS: METOPROLOL TARTRATE 50 MG TAB PO SCH ×2 (08:08→20:45)
[2023-03-16] MEDS: ATORVASTATIN 20 MG TAB PO SCH (08:08)
[2023-03-16] MEDS: ASCORBIC ACID 500 MG TAB PO SCH (08:08)
[2023-03-16] MEDS: LACTOBACILLUS ACIDOPHILUS/PECT 1 EACH CAPSULE PO SCH (08:08)
[2023-03-16] MEDS: CHOLECALCIFEROL 25 MCG (1000 IU) TABLET PO SCH (08:08)
[2023-03-16] MEDS: FENOFIBRATE 160 MG TAB PO SCH (08:09)
[2023-03-16] MEDS: TAMSULOSIN 0.4 MG CAP.ER.24H PO SCH (08:09)
[2023-03-16] MEDS: LOSARTAN 50 MG TAB PO SCH (08:09)
[2023-03-16] MEDS: LEVOTHYROXINE 25 MCG TAB PO SCH (08:09)
[2023-03-16] MEDS: MULTIVITAMINS, THERA 1 EACH TAB PO SCH (08:09)
[2023-03-16 08:10] LABS: Basophils % (A) 0 %; Eosinophils # (A) 0.4 k/uL (0-0.7); Eosinophils % (A) 5 %; HCT 41.2 % (39.0-53.0); HGB 12.9 gm/dL (13.0-17.5); Hypochromasia Slight; Lymphocytes # (A) 1.2 k/uL (1.0-4.8); Lymphocytes % (A) 13 %; MCH 27.8 pg (25.0-35.0); MCHC 31.2 g/dL (31.0-37.0); MCV 89.2 fL (80.0-100.0); Mean Platelet Volume 8.9; Monocytes # (A) 0.7 k/uL (0-1.0); Monocytes % (A) 8 %; Neutrophils # (A) 6.8 k/uL (1.3-7.7); Neutrophils % (A) 72 %; Platelet Count 467 k/uL (150-450); RBC 4.62 m/uL (4.30-5.90); RDW 13.7 % (11.5-15.5); WBC 9.4 k/uL (3.8-10.6)
[2023-03-16] MEDS: DAPAGLIFLOZIN PROPANEDIOL 10 MG TABLET PO SCH (08:10)
[2023-03-16] MEDS: SODIUM CHLORIDE 5% OPHTH DROPS 15 ML BTL BOTH EYES SCH ×2 (08:10→20:45)
[2023-03-16] MEDS: SYMBICORT 80-4.5 MCG INHALER INHALATION SCH ×2 (08:16→21:28)
[2023-03-16] MEDS: IPRATROPIUM 0.5 MG/2.5 ML NEBU INHALATION SCH ×4 (08:16→21:28)
[2023-03-16 08:36] LABS: ALT 22 U/L (4-49); AST 22 U/L (17-59); African American GFR (CKD) 56 (>60 ml/min/1.73 sqM); Albumin 2.8 g/dL (3.5-5.0); Alkaline Phosphatase 59 U/L (38-126); Anion Gap 9 mmol/L; Blood Urea Nitrogen 48 mg/dL (9-20); Carbon Dioxide 20 mmol/L (22-30); Chloride 108 mmol/L (98-107); Glucose 133 mg/dL (74-99); Non-African American GFR(CKD) 48 (>60 ml/min/1.73 sqM); Sodium 137 mmol/L (137-145); Total Bilirubin 0.4 mg/dL (0.2-1.3)
[2023-03-16 11:35] LABS: Glucose,Whole Blood 251 mg/dL (70-110)
[2023-03-16 12:28] VITALS: BMI 22.5
--- NOTE | 2023-03-16 15:25 | P.PN ---
Subjective Progress Note Date: 03/16/23 Principal diagnosis: Acute hypoxic Failure Secondary to Acute Bilateral Pneumonia, Advanced COPD, and DKA. This is a very pleasant 72-year-old male patient. He is known to me. I recently met this patient office regarding his chronic lung problems. He has chronic exertional dyspnea and cough. He had [id number] smoking history and he quit smoking back in 2016. He is known to have a renal mass and he has undergone a partial nephrectomy and his diseases been in remission. He also has issues with ITP and paraproteinemia/questionable multiple myeloma. He was having some difficulties in breathing and I saw him in the office. I started the patient trilogy of that the one inhalation a day. 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 Over the past 24-48 hours, the patient becomes lethargic and weak and based on that the patient ended up coming into the hospital. A repeat chest x-ray was done that showed significant consolidation of the left lung. The patient was started on IV antibiotics. He is known to have hypertension, hyperlipidemia, diabetes mellitus type 2 and chronic stage III kidney disease. In the emergency, his white cell count was at 9.8 with a hemoglobin of 14.1. Normal coagulation profile. The serum bicarb was down to 1 9 and a BUN was at 2.3 which improved and is currently down to 1.8. The most recent blood work shows a BUN of 18 with a creatinine of 1.8. Serum bicarbs improved and is currently up to 15. Patient is currently on insulin drip at 2 units an hour. He is also on D5 half-normal saline at the rate of 150 mL an hour. He did have +4 sugars and his UA and +1 ketones. He was positive for acetones. The viral screen was negative. He was started on broad-spectrum antibiotics and currently he is on Zithromax and he was also started on Rocephin. On 03/15/2023, the patient is feeling slightly improved compared to yesterday. Continues to have a cough which is essentially dry at this point in time. Remai ns on Rocephin and Zithromax. He remains also on oxygen which is currently running at 2 L per minute nasal cannula with a pulse ox of 92%. The white cell cause of 9.6. Hemoglobin is at 14.1. BUN is at 50 with a creatinine of 1.36 and the patient's acute kidney injury is also improving. Anion gap is down to 12/13 and the patient's serum bicarbs of 17. The patient was started back on acting insulin and the patient is currently on Levemir 25 units along with a slight scale coverage. The patient is also on for CPAP. Reevaluated today on 03/16/23, patient is doing well, he is on 2 L nasal cannula with O2 sat 93% he has some shortness of breath, some cough, but not in distress. His temp is 97 7 CBC is relatively normal WBC count is 9.4 basic metabolic profile is normal bicarb is 20 and his 48 creatinine 1.44 chest x-ray continues to show significant consolidation in the left midlung area and left upper lobe also similar findings noted in the right upper lobe. And remains on antibiotics Objective - Vital Signs Vital signs: Vital Signs Temp 97.7 F 03/16/23 11:51 Pulse 88 03/16/23 14:00 Resp 17 03/16/23 14:00 BP 122/66 03/16/23 11:51 Pulse Ox 93 L 03/16/23 11:51 FiO2 Intake & Output 03/15/23 03/16/23 03/16/23 18:59 06:59 18:59 Intake Total 960 360 Output Total 280 Balance 960 -280 360 Weight 83.915 kg Intake: Oral 960 360 Output: Urine 280 Other: Voiding Method Toilet Toilet Toilet Urinal Urinal Urinal # Voids 2 1 - Exam Physical Exam: Revealed a 73-year-old male in no distress Head: Atraumatic, normocephalic HEENT:[Neck is supple.] [No neck masses.] [No thyromegaly.] [No JVD.] Chest: [Crackles and rhonchi noted bilaterally Cardiac Exam: [Normal S1 and S2, no S3 gallop, no murmur.] Abdomen: [Soft, nontender, no megaly, no rebound, no guarding, normal bowel sounds.] Extremities: [No clubbing, no edema, no cyanosis.] Neurological Exam: [Alert and oriented 3 No focal neurologic deficit.] Psychiatric: Normal mood affect and normal mental status examination. - Labs CBC & Chem 7: 03/16/23 07:03 03/16/23 07:03 Labs: Abnormal Lab Results - Last 24 Hours (Table) 03/15/23 03/15/23 03/16/23 Range/Units 16:25 20:08 06:24 Hgb (13.0-17.5) gm/dL Plt Count (150-450) k/uL Chloride (98-107) mmol/L Carbon Dioxide (22-30) mmol/L BUN (9-20) mg/dL Creatinine (0.66-1.25) mg/dL Glucose (74-99) mg/dL POC Glucose (mg/dL) 325 H 295 H 126 H (70-110) mg/dL Albumin (3.5-5.0) g/dL 03/16/23 03/16/23 03/16/23 Range/Units 07:03 07:03 11:27 Hgb 12.9 L (13.0-17.5) gm/dL Plt Count 467 H (150-450) k/uL Chloride 108 H (98-107) mmol/L Carbon Dioxide 20 L (22-30) mmol/L BUN 48 H (9-20) mg/dL Creatinine 1.44 H (0.66-1.25) mg/dL Glucose 133 H (74-99) mg/dL POC Glucose (mg/dL) 251 H (70-110) mg/dL Albumin 2.8 L (3.5-5.0) g/dL Microbiology - Last 24 Hours (Table) 03/14/23 21:20 Gram Stain - Preliminary Sputum 03/13/23 17:14 Blood Culture - Preliminary Blood 03/13/23 17:08 Blood Culture - Preliminary Blood Assessment and Plan Assessment: Impression: Acute hypoxic respiratory failure secondary to bilateral pneumonia, community- acquired, Acute COPD exacerbation Acute DKA Acute on chronic kidney disease Benign essential hypertension Dyslipidemia Type 2 diabetes on Lantus insulin and sliding scale coverage History of chronic polyps and diverticulosis History of vitamin D deficiency History of ITP. Recommendation: Continue Rocephin and Zithromax Continue bronchodilators Continue insulin and monitor blood sugars follow the sliding scale coverage Titrate oxygen accordingly We will continue to follow Not quite ready for discharge planning Time with Patient: Less than 30
[2023-03-16 16:40] LABS: Glucose,Whole Blood 259 mg/dL (70-110)
--- NOTE | 2023-03-16 17:12 | P.PN ---
Subjective Progress Note Date: 03/16/23 Josue Blackburn, is a 73-year-old male who presented to [facility] emergency room with a chief complaint of shortness of breath, cough and generalized weakness He was evaluated in the emergency room vital examination on presentation revealed a temperature of 97.4 pulse 92 respiration 18 blood pressure 103/60 pulse ox 93% on room air Laboratory data revealed a white blood count of 9.8 hemoglobin 14.1 platelet count 358 sodium 134 potassium 4.5 chloride 106 CO2 15 BUN 18 creatinine 1.86 Procalcitonin 2.45 Testing in the emergency room revealed extensive new air space disease throughout the left lung, suspicious for pneumonia. EKG revealed sinus rhythm with left anterior fascicular block and poor R-wave progression in the anterior leads Patient was admitted to medical floor for further evaluation and treatment On 03/15/2023 patient is alert and oriented 3 . Patient reports improvement with cough and shortness breath. Patient remains on IV antibiotics. Pulmonary service is following. Patient denies chest pain. Patient denies nausea vomiting or diarrhea. Patient denies any urinary burning or frequency on 03/16/2023 patient was seen and examined on the medical floor he is alert and oriented 3 in no apparent distress he is still complaining of cough and shortness of breath otherwise he denies any complaints there is no fever or chills no headache or dizziness no chest pain no nausea or vomiting no abdominal pain no diarrhea and no urinary symptoms Objective - Vital Signs Vital signs: Vital Signs Temp 97.9 F 03/16/23 08:00 Pulse 100 03/16/23 08:29 Resp 18 03/16/23 08:00 BP 111/70 03/16/23 08:00 Pulse Ox 97 03/16/23 08:16 FiO2 Intake & Output 03/15/23 03/16/23 03/16/23 18:59 06:59 18:59 Intake Total 960 180 Output Total 280 Balance 960 -280 180 Intake: Oral 960 180 Output: Urine 280 Other: Voiding Method Toilet Toilet Urinal Urinal # Voids 2 1 - Exam In general patient is alert and oriented x 3 in no distress HEENT head normocephalic and atraumatic Neck is supple no JVD no goiter no lymphadenopathy no carotid bruit Chest examination is clear to auscultation no crackles no wheezing Cardiac exam reveals regular heart sounds S1 and S2 no gallops no murmurs Abdomen is soft nontender no organomegaly with normal bowel sounds Extremity exam reveals no edema no cyanosis or clubbing Neurological examination reveals no gross focal deficits - Labs CBC & Chem 7: 03/16/23 07:03 03/16/23 07:03 Labs: Abnormal Lab Results - Last 24 Hours (Table) 03/15/23 03/15/23 03/15/23 Range/Units 09:09 11:29 16:25 Hgb (13.0-17.5) gm/dL Plt Count (150-450) k/uL Chloride 108 H (98-107) mmol/L Carbon Dioxide 17 L (22-30) mmol/L BUN 50 H (9-20) mg/dL Creatinine 1.36 H (0.66-1.25) mg/dL Glucose 228 H (74-99) mg/dL POC Glucose (mg/dL) 231 H 325 H (70-110) mg/dL Total Protein 8.4 H (6.3-8.2) g/dL Albumin 3.0 L (3.5-5.0) g/dL 03/15/23 03/16/23 03/16/23 Range/Units 20:08 06:24 07:03 Hgb 12.9 L (13.0-17.5) gm/dL Plt Count 467 H (150-450) k/uL Chloride (98-107) mmol/L Carbon Dioxide (22-30) mmol/L BUN (9-20) mg/dL Creatinine (0.66-1.25) mg/dL Glucose (74-99) mg/dL POC Glucose (mg/dL) 295 H 126 H (70-110) mg/dL Total Protein (6.3-8.2) g/dL Albumin (3.5-5.0) g/dL 03/16/23 Range/Units 07:03 Hgb (13.0-17.5) gm/dL Plt Count (150-450) k/uL Chloride 108 H (98-107) mmol/L Carbon Dioxide 20 L (22-30) mmol/L BUN 48 H (9-20) mg/dL Creatinine 1.44 H (0.66-1.25) mg/dL Glucose 133 H (74-99) mg/dL POC Glucose (mg/dL) (70-110) mg/dL Total Protein (6.3-8.2) g/dL Albumin 2.8 L (3.5-5.0) g/dL Microbiology - Last 24 Hours (Table) 03/13/23 17:14 Blood Culture - Preliminary Blood 03/13/23 17:08 Blood Culture - Preliminary Blood Assessment and Plan Plan: Extensive pneumonia in the left lung Acute hypoxic respiratory failure present on admission maintained on oxygen supplements Possible sepsis awaiting blood culture results and lactic acid results Dehydration with acute kidney injury Diabetic ketoacidosis present on admission Underlying history of advanced COPD Underlying history of insulin-dependent diabetes mellitus Underlying history of hypertension Underlying history of hyperlipidemia History of immune thrombocytopenia 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
[2023-03-16] MEDS: INSULIN DETEMIR (LEVEMIR) 100 UNIT/ML SYR SQ SCH (18:02)
[2023-03-16 20:23] LABS: Glucose,Whole Blood 297 mg/dL (70-110)
[2023-03-16] MEDS: PANTOPRAZOLE 40 MG TABLET PO SCH (20:45)
[2023-03-17 06:18] LABS: Glucose,Whole Blood 42 mg/dL (70-110)
[2023-03-17] MEDS: INSULIN ASPART (NovoLOG) 100 UNIT/ML VIAL SQ SCH ×4 (06:21→20:36)
[2023-03-17 06:35] LABS: Glucose,Whole Blood 62 mg/dL (70-110)
[2023-03-17 06:51] LABS: Glucose,Whole Blood 111 mg/dL (70-110)
[2023-03-17 07:30] LABS: Basophils # (A) 0.1 k/uL (0-0.2); Basophils % (A) 1 %; Eosinophils # (A) 0.5 k/uL (0-0.7); Eosinophils % (A) 5 %; HCT 43.1 % (39.0-53.0); HGB 13.1 gm/dL (13.0-17.5); Hypochromasia Slight; Lymphocytes # (A) 1.4 k/uL (1.0-4.8); Lymphocytes % (A) 14 %; MCH 27.5 pg (25.0-35.0); MCHC 30.4 g/dL (31.0-37.0); MCV 90.5 fL (80.0-100.0); Mean Platelet Volume 7.7; Monocytes # (A) 0.7 k/uL (0-1.0); Monocytes % (A) 7 %; Neutrophils # (A) 7.3 k/uL (1.3-7.7); Neutrophils % (A) 73 %; Platelet Count 484 k/uL (150-450); RBC 4.76 m/uL (4.30-5.90); RDW 13.6 % (11.5-15.5)
[2023-03-17 07:42] LABS: ALT 22 U/L (4-49); AST 23 U/L (17-59); African American GFR (CKD) 49 (>60 ml/min/1.73 sqM); Albumin 3.1 g/dL (3.5-5.0); Alkaline Phosphatase 60 U/L (38-126); Anion Gap 11 mmol/L; Blood Urea Nitrogen 45 mg/dL (9-20); Calcium 9.9 mg/dL (8.4-10.2); Carbon Dioxide 20 mmol/L (22-30); Chloride 106 mmol/L (98-107); Glucose 213 mg/dL (74-99); Non-African American GFR(CKD) 42 (>60 ml/min/1.73 sqM); Potassium 4.7 mmol/L (3.5-5.1); Sodium 137 mmol/L (137-145); Total Bilirubin 0.4 mg/dL (0.2-1.3); Total Protein 8.3 g/dL (6.3-8.2)
[2023-03-17] MEDS: MULTIVITAMINS, THERA 1 EACH TAB PO SCH (08:25)
[2023-03-17] MEDS: ASCORBIC ACID 500 MG TAB PO SCH (08:25)
[2023-03-17] MEDS: ATORVASTATIN 20 MG TAB PO SCH (08:25)
[2023-03-17] MEDS: FENOFIBRATE 160 MG TAB PO SCH (08:25)
[2023-03-17] MEDS: DAPAGLIFLOZIN PROPANEDIOL 10 MG TABLET PO SCH (08:25)
[2023-03-17] MEDS: LACTOBACILLUS ACIDOPHILUS/PECT 1 EACH CAPSULE PO SCH (08:25)
[2023-03-17] MEDS: CHOLECALCIFEROL 25 MCG (1000 IU) TABLET PO SCH (08:25)
[2023-03-17] MEDS: LOSARTAN 50 MG TAB PO SCH (08:25)
[2023-03-17] MEDS: TAMSULOSIN 0.4 MG CAP.ER.24H PO SCH (08:25)
[2023-03-17] MEDS: LEVOTHYROXINE 25 MCG TAB PO SCH (08:25)
[2023-03-17] MEDS: METOPROLOL TARTRATE 50 MG TAB PO SCH ×2 (08:25→20:36)
--- NOTE | 2023-03-17 08:49 | P.PN ---
Subjective Progress Note Date: 03/17/23 Josue Blackburn, is a 73-year-old male who presented to [facility] emergency room with a chief complaint of shortness of breath, cough and generalized weakness He was evaluated in the emergency room vital examination on presentation revealed a temperature of 97.4 pulse 92 respiration 18 blood pressure 103/60 pulse ox 93% on room air Laboratory data revealed a white blood count of 9.8 hemoglobin 14.1 platelet count 358 sodium 134 potassium 4.5 chloride 106 CO2 15 BUN 18 creatinine 1.86 P rocalcitonin 2.45 Testing in the emergency room revealed extensive new air space disease throughout the left lung, suspicious for pneumonia. EKG revealed sinus rhythm with left anterior fascicular block and poor R-wave progression in the anterior leads Patient was admitted to medical floor for further evaluation and treatment On 03/15/2023 patient is alert and oriented 3 . Patient reports improvement with cough and shortness breath. Patient remains on IV antibiotics. Pulmonary service is following. Patient denies chest pain. Patient denies nausea vomiting or diarrhea. Patient denies any urinary burning or frequency on 03/16/2023 patient was seen and examined on the medical floor he is alert and oriented 3 in no apparent distress he is still complaining of cough and shortness of breath otherwise he denies any complaints there is no fever or chills no headache or dizziness no chest pain no nausea or vomiting no abdominal pain no diarrhea and no urinary symptoms On 03/17/23 patient is alert and oriented 3. Patient reports improvement with shortness of breath. Still coughing. Current vital signs temp 98.2, heart rate 82, respiratory rate 18, blood pressure 110/59 with a pulse ox of 95% on 2 L. Will discuss with nursing to attempt to wean oxygen patient does not wear O2 at home. Awaiting for further recommendations from pulmonary services Objective - Vital Signs Vital signs: Vital Signs Temp 98.2 F 03/16/23 19:51 Pulse 82 03/17/23 04:00 Resp 18 03/17/23 04:00 BP 110/59 03/17/23 04:00 Pulse Ox 95 03/17/23 04:00 FiO2 Intake & Output 03/16/23 03/17/23 03/17/23 18:59 06:59 18:59 Intake Total 600 Balance 600 Weight 83.915 kg Intake: Oral 600 Other: Voiding Method Toilet Toilet Urinal Urinal # Voids 2 - Exam In general patient is alert and oriented x 3 in no distress HEENT head normocephalic and atraumatic Neck is supple no JVD no goiter no lymphadenopathy no carotid bruit Chest examination is clear to auscultation no crackles no wheezing Cardiac exam reveals regular heart sounds S1 and S2 no gallops no murmurs Abdomen is soft nontender no organomegaly with normal bowel sounds Extremity exam reveals no edema no cyanosis or clubbing Neurological examination reveals no gross focal deficits - Labs CBC & Chem 7: 03/17/23 07:14 03/17/23 07:14 Labs: Abnormal Lab Results - Last 24 Hours (Table) 03/16/23 03/16/23 03/16/23 Range/Units 11:27 16:36 20:21 MCHC (31.0-37.0) g/dL Plt Count (150-450) k/uL Carbon Dioxide (22-30) mmol/L BUN (9-20) mg/dL Creatinine (0.66-1.25) mg/dL Glucose (74-99) mg/dL POC Glucose (mg/dL) 251 H 259 H 297 H (70-110) mg/dL Total Protein (6.3-8.2) g/dL Albumin (3.5-5.0) g/dL 03/17/23 03/17/23 03/17/23 Range/Units 06:17 06:34 06:49 MCHC (31.0-37.0) g/dL Plt Count (150-450) k/uL Carbon Dioxide (22-30) mmol/L BUN (9-20) mg/dL Creatinine (0.66-1.25) mg/dL Glucose (74-99) mg/dL POC Glucose (mg/dL) 42 L 62 L 111 H (70-110) mg/dL Total Protein (6.3-8.2) g/dL Albumin (3.5-5.0) g/dL 03/17/23 03/17/23 Range/Units 07:14 07:14 MCHC 30.4 L (31.0-37.0) g/dL Plt Count 484 H (150-450) k/uL Carbon Dioxide 20 L (22-30) mmol/L BUN 45 H (9-20) mg/dL Creatinine 1.61 H (0.66-1.25) mg/dL Glucose 213 H (74-99) mg/dL POC Glucose (mg/dL) (70-110) mg/dL Total Protein 8.3 H (6.3-8.2) g/dL Albumin 3.1 L (3.5-5.0) g/dL Microbiology - Last 24 Hours (Table) 03/13/23 17:14 Blood Culture - Preliminary Blood 03/13/23 17:08 Blood Culture - Preliminary Blood 03/14/23 21:20 Gram Stain - Preliminary Sputum Assessment and Plan Assessment: Extensive pneumonia in the left lung Acute hypoxic respiratory failure present on admission maintained on oxygen supplements Possible sepsis awaiting blood culture results and lactic acid results Dehydration with acute kidney injury Diabetic ketoacidosis present on admission Underlying history of advanced COPD Underlying history of insulin-dependent diabetes mellitus Underlying history of hypertension Underlying history of hyperlipidemia History of immune thrombocytopenia 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
[2023-03-17] MEDS: SYMBICORT 80-4.5 MCG INHALER INHALATION SCH ×2 (09:11→19:27)
[2023-03-17] MEDS: IPRATROPIUM 0.5 MG/2.5 ML NEBU INHALATION SCH ×4 (09:11→19:27)
[2023-03-17 12:04] LABS: Glucose,Whole Blood 205 mg/dL (70-110)
[2023-03-17] MEDS: SODIUM CHLORIDE 5% OPHTH DROPS 15 ML BTL BOTH EYES SCH ×2 (12:09→20:37)
--- NOTE | 2023-03-17 13:50 | P.PN ---
Subjective Progress Note Date: 03/17/23 Principal diagnosis: Acute hypoxic Failure Secondary to Acute Bilateral Pneumonia, Advanced COPD, and DKA. This is a very pleasant 72-year-old male patient. He is known to me. I recently met this patient office regarding his chronic lung problems. He has chronic exertional dyspnea and cough. He had [id number] smoking history and he quit smoking back in 2016. He is known to have a renal mass and he has undergone a partial nephrectomy and his diseases been in remission. He also has issues with ITP and paraproteinemia/questionable multiple myeloma. He was having some difficulties in breathing and I saw him in the office. I started the patient trilogy of that the one inhalation a day. 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 Over the past 24-48 hours, the patient becomes lethargic and weak and based on that the patient ended up coming into the hospital. A repeat chest x-ray was done that showed significant consolidation of the left lung. The patient was started on IV antibiotics. He is known to have hypertension, hyperlipidemia, diabetes mellitus type 2 and chronic stage III kidney disease. In the emergency, his white cell count was at 9.8 with a hemoglobin of 14.1. Normal coagulation profile. The serum bicarb was down to 1 9 and a BUN was at 2.3 which improved and is currently down to 1.8. The most recent blood work shows a BUN of 18 with a creatinine of 1.8. Serum bicarbs improved and is currently up to 15. Patient is currently on insulin drip at 2 units an hour. He is also on D5 half-normal saline at the rate of 150 mL an hour. He did have +4 sugars and his UA and +1 ketones. He was positive for acetones. The viral screen was negative. He was started on broad-spectrum antibiotics and currently he is on Zithromax and he was also started on Rocephin. On 03/15/2023, the patient is feeling slightly improved compared to yesterday. Continues to have a cough which is essentially dry at this point in time. Remai ns on Rocephin and Zithromax. He remains also on oxygen which is currently running at 2 L per minute nasal cannula with a pulse ox of 92%. The white cell cause of 9.6. Hemoglobin is at 14.1. BUN is at 50 with a creatinine of 1.36 and the patient's acute kidney injury is also improving. Anion gap is down to 12/13 and the patient's serum bicarbs of 17. The patient was started back on acting insulin and the patient is currently on Levemir 25 units along with a slight scale coverage. The patient is also on for CPAP. Reevaluated today on 03/16/23, patient is doing well, he is on 2 L nasal cannula with O2 sat 93% he has some shortness of breath, some cough, but not in distress. His temp is 97 7 CBC is relatively normal WBC count is 9.4 basic metabolic profile is normal bicarb is 20 and his 48 creatinine 1.44 chest x-ray continues to show significant consolidation in the left midlung area and left upper lobe also similar findings noted in the right upper lobe. And remains on antibiotics Patient was reevaluated today on 03/17/23, patient remains on 2 L nasal cannula, O2 sats is 94%. Does not seem to be in any distress, went back and reviewed his CT of the chest which was done on outpatient basis, there is clearly evidence of nodular and cystic changes on his CT of the chest highly consistent with PLCH. Patient was supposed to have bronchoscopy with BAL and transbronchial biopsy on outpatient basis, however this never happened mostly because of his acute illness during this admission. Nonetheless the patient will eventually need transbronchial biopsies and BAL, patient will have staining of his BAL fluid for CD1a again this could be done on outpatient basis once the patient improves and recovers from this acute illness. In the meantime the patient remains on antib iotics for his pneumonia. W Josue today is 10 hemoglobin 13.1 basic metabolic profile is normal BUN is 45 creatinine 1.6 Objective - Vital Signs Vital signs: Vital Signs Temp 97.7 F 03/17/23 08:00 Pulse 92 03/17/23 12:51 Resp 18 03/17/23 08:00 BP 117/79 03/17/23 08:00 Pulse Ox 94 L 03/17/23 09:14 FiO2 Intake & Output 03/16/23 03/17/23 03/17/23 18:59 06:59 18:59 Intake Total 600 720 Balance 600 720 Weight 83.915 kg Intake: Oral 600 720 Other: Voiding Method Toilet Toilet Toilet Urinal Urinal Urinal # Voids 2 - Exam Physical Exam: Revealed a 73-year-old male in no distress, on 2 L nasal cannula Head: Atraumatic, normocephalic HEENT:[Neck is supple.] [No neck masses.] [No thyromegaly.] [No JVD.] Chest: [Crackles and rhonchi noted bilaterally Cardiac Exam: [Normal S1 and S2, no S3 gallop, no murmur.] Abdomen: [Soft, nontender, no megaly, no rebound, no guarding, normal bowel sounds.] Extremities: [No clubbing, no edema, no cyanosis.] Neurological Exam: [Alert and oriented 3 No focal neurologic deficit.] Psychiatric: Normal mood affect and normal mental status examination. - Labs CBC & Chem 7: 03/17/23 07:14 03/17/23 07:14 Labs: Abnormal Lab Results - Last 24 Hours (Table) 03/16/23 03/16/23 03/17/23 Range/Units 16:36 20:21 06:17 MCHC (31.0-37.0) g/dL Plt Count (150-450) k/uL Carbon Dioxide (22-30) mmol/L BUN (9-20) mg/dL Creatinine (0.66-1.25) mg/dL Glucose (74-99) mg/dL POC Glucose (mg/dL) 259 H 297 H 42 L (70-110) mg/dL Total Protein (6.3-8.2) g/dL Albumin (3.5-5.0) g/dL 03/17/23 03/17/23 03/17/23 Range/Units 06:34 06:49 07:14 MCHC 30.4 L (31.0-37.0) g/dL Plt Count 484 H (150-450) k/uL Carbon Dioxide (22-30) mmol/L BUN (9-20) mg/dL Creatinine (0.66-1.25) mg/dL Glucose (74-99) mg/dL POC Glucose (mg/dL) 62 L 111 H (70-110) mg/dL Total Protein (6.3-8.2) g/dL Albumin (3.5-5.0) g/dL 03/17/23 03/17/23 Range/Units 07:14 12:02 MCHC (31.0-37.0) g/dL Plt Count (150-450) k/uL Carbon Dioxide 20 L (22-30) mmol/L BUN 45 H (9-20) mg/dL Creatinine 1.61 H (0.66-1.25) mg/dL Glucose 213 H (74-99) mg/dL POC Glucose (mg/dL) 205 H (70-110) mg/dL Total Protein 8.3 H (6.3-8.2) g/dL Albumin 3.1 L (3.5-5.0) g/dL Microbiology - Last 24 Hours (Table) 03/14/23 21:20 Gram Stain - Final Sputum Sputum Culture - Final 03/13/23 17:14 Blood Culture - Preliminary Blood 03/13/23 17:08 Blood Culture - Preliminary Blood Assessment and Plan Assessment: Impression: Acute hypoxic respiratory failure secondary to bilateral pneumonia, community-acquired, Acute COPD exacerbation Acute DKA Acute on chronic kidney disease Benign essential hypertension Dyslipidemia Type 2 diabetes on Lantus insulin and sliding scale coverage History of chronic polyps and diverticulosis History of vitamin D deficiency History of ITP. 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 REcommendation: Continue Rocephin and Zithromax Continue bronchodilators Continue insulin and monitor blood sugars follow the sliding scale coverage Titrate oxygen accordingly Will eventually need bronchoscopy BAL may be transbronchial biopsy for tissue diagnosis of PLCH We will continue to follow Not quite ready for discharge planning Time with Patient: Less than 30
[2023-03-17 16:28] LABS: Glucose,Whole Blood 330 mg/dL (70-110)
[2023-03-17] MEDS: INSULIN DETEMIR (LEVEMIR) 100 UNIT/ML SYR SQ SCH (17:56)
[2023-03-17 19:55] LABS: Glucose,Whole Blood 352 mg/dL (70-110)
[2023-03-17] MEDS: PANTOPRAZOLE 40 MG TABLET PO SCH (20:36)
[2023-03-18 05:52] LABS: Glucose,Whole Blood 198 mg/dL (70-110)
[2023-03-18] MEDS: INSULIN ASPART (NovoLOG) 100 UNIT/ML VIAL SQ SCH ×4 (06:33→20:30)
[2023-03-18 07:14] LABS: Basophils % (A) 0 %; Eosinophils # (A) 0.4 k/uL (0-0.7); Eosinophils % (A) 4 %; HGB 12.5 gm/dL (13.0-17.5); Lymphocytes # (A) 1.3 k/uL (1.0-4.8); Lymphocytes % (A) 16 %; MCH 28.5 pg (25.0-35.0); MCHC 32.1 g/dL (31.0-37.0); MCV 88.9 fL (80.0-100.0); Mean Platelet Volume 7.7; Monocytes # (A) 0.6 k/uL (0-1.0); Monocytes % (A) 7 %; Neutrophils # (A) 5.9 k/uL (1.3-7.7); Neutrophils % (A) 70 %; Platelet Count 455 k/uL (150-450); RBC 4.39 m/uL (4.30-5.90); RDW 13.5 % (11.5-15.5); WBC 8.4 k/uL (3.8-10.6)
[2023-03-18 07:22] LABS: ALT 18 U/L (4-49); AST 19 U/L (17-59); African American GFR (CKD) 45 (>60 ml/min/1.73 sqM); Albumin 2.8 g/dL (3.5-5.0); Alkaline Phosphatase 55 U/L (38-126); Anion Gap 8 mmol/L; Blood Urea Nitrogen 48 mg/dL (9-20); Calcium 9.6 mg/dL (8.4-10.2); Carbon Dioxide 22 mmol/L (22-30); Chloride 107 mmol/L (98-107); Glucose 160 mg/dL (74-99); Non-African American GFR(CKD) 39 (>60 ml/min/1.73 sqM); Potassium 5.4 mmol/L (3.5-5.1); Sodium 137 mmol/L (137-145); Total Bilirubin 0.3 mg/dL (0.2-1.3); Total Protein 7.8 g/dL (6.3-8.2)
[2023-03-18] MEDS: SYMBICORT 80-4.5 MCG INHALER INHALATION SCH ×2 (08:38→21:26)
[2023-03-18] MEDS: IPRATROPIUM 0.5 MG/2.5 ML NEBU INHALATION SCH ×4 (08:38→21:26)
[2023-03-18] MEDS: FENOFIBRATE 160 MG TAB PO SCH (09:15)
[2023-03-18] MEDS: ASCORBIC ACID 500 MG TAB PO SCH (09:15)
[2023-03-18] MEDS: ATORVASTATIN 20 MG TAB PO SCH (09:15)
[2023-03-18] MEDS: DAPAGLIFLOZIN PROPANEDIOL 10 MG TABLET PO SCH (09:16)
[2023-03-18] MEDS: LEVOTHYROXINE 25 MCG TAB PO SCH (09:16)
[2023-03-18] MEDS: TAMSULOSIN 0.4 MG CAP.ER.24H PO SCH (09:16)
[2023-03-18] MEDS: METOPROLOL TARTRATE 50 MG TAB PO SCH ×2 (09:16→20:30)
[2023-03-18] MEDS: MULTIVITAMINS, THERA 1 EACH TAB PO SCH (09:16)
[2023-03-18] MEDS: LACTOBACILLUS ACIDOPHILUS/PECT 1 EACH CAPSULE PO SCH (09:16)
[2023-03-18] MEDS: LOSARTAN 50 MG TAB PO SCH (09:16)
[2023-03-18] MEDS: SODIUM CHLORIDE 5% OPHTH DROPS 15 ML BTL BOTH EYES SCH ×2 (09:17→20:31)
[2023-03-18] MEDS: CHOLECALCIFEROL 25 MCG (1000 IU) TABLET PO SCH (09:33)
--- NOTE | 2023-03-18 10:26 | XR ---
EXAMINATION TYPE: XR chest 1V portable DATE OF EXAM: 03/18/2023 COMPARISON: 03/16/2023 HISTORY: Pneumonia TECHNIQUE: Single frontal view of the chest is obtained. FINDINGS: Areas of consolidation involving the left lung are stable. Underlying COPD and chronic pul monary fibrosis suspected. No sizable pneumothorax. Heart size normal. Elevated left hemidiaphragm. IMPRESSION: Stable left-sided consolidation correlate for pneumonia. Follow-up to resolution to excl ude other etiologies.
[2023-03-18 11:48] LABS: Glucose,Whole Blood 199 mg/dL (70-110)
--- NOTE | 2023-03-18 12:52 | P.PN ---
Subjective Progress Note Date: 03/18/23 Principal diagnosis: Acute hypoxic Failure Secondary to Acute Bilateral Pneumonia, Advanced COPD, and DKA. This is a very pleasant 72-year-old male patient. He is known to me. I recently met this patient office regarding his chronic lung problems. He has chronic exertional dyspnea and cough. He had [id number] smoking history and he quit smoking back in 2016. He is known to have a renal mass and he has undergone a partial nephrectomy and his diseases been in remission. He also has issues with ITP and paraproteinemia/questionable multiple myeloma. He was having some difficulties in breathing and I saw him in the office. I started the patient trilogy of that the one inhalation a day. 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 Over the past 24-48 hours, the patient becomes lethargic and weak and based on that the patient ended up coming into the hospital. A repeat chest x-ray was done that showed significant consolidation of the left lung. The patient was started on IV antibiotics. He is known to have hypertension, hyperlipidemia, diabetes mellitus type 2 and chronic stage III kidney disease. In the emergency, his white cell count was at 9.8 with a hemoglobin of 14.1. Normal coagulation profile. The serum bicarb was down to 1 9 and a BUN was at 2.3 which improved and is currently down to 1.8. The most recent blood work shows a BUN of 18 with a creatinine of 1.8. Serum bicarbs improved and is currently up to 15. Patient is currently on insulin drip at 2 units an hour. He is also on D5 half-normal saline at the rate of 150 mL an hour. He did have +4 sugars and his UA and +1 ketones. He was positive for acetones. The viral screen was negative. He was started on broad-spectrum antibiotics and currently he is on Zithromax and he was also started on Rocephin. On 03/15/2023, the patient is feeling slightly improved compared to yesterday. Continues to have a cough which is essentially dry at this point in time. Remai ns on Rocephin and Zithromax. He remains also on oxygen which is currently running at 2 L per minute nasal cannula with a pulse ox of 92%. The white cell cause of 9.6. Hemoglobin is at 14.1. BUN is at 50 with a creatinine of 1.36 and the patient's acute kidney injury is also improving. Anion gap is down to 12/13 and the patient's serum bicarbs of 17. The patient was started back on acting insulin and the patient is currently on Levemir 25 units along with a slight scale coverage. The patient is also on for CPAP. Reevaluated today on 03/16/23, patient is doing well, he is on 2 L nasal cannula with O2 sat 93% he has some shortness of breath, some cough, but not in distress. His temp is 97 7 CBC is relatively normal WBC count is 9.4 basic metabolic profile is normal bicarb is 20 and his 48 creatinine 1.44 chest x-ray continues to show significant consolidation in the left midlung area and left upper lobe also similar findings noted in the right upper lobe. And remains on antibiotics Patient was reevaluated today on 03/17/23, patient remains on 2 L nasal cannula, O2 sats is 94%. Does not seem to be in any distress, went back and reviewed his CT of the chest which was done on outpatient basis, there is clearly evidence of nodular and cystic changes on his CT of the chest highly consistent with PLCH. Patient was supposed to have bronchoscopy with BAL and transbronchial biopsy on outpatient basis, however this never happened mostly because of his acute illness during this admission. Nonetheless the patient will eventually need transbronchial biopsies and BAL, patient will have staining of his BAL fluid for CD1a again this could be done on outpatient basis once the patient improves and recovers from this acute illness. In the meantime the patient remains on antib iotics for his pneumonia. W Josue today is 10 hemoglobin 13.1 basic metabolic profile is normal BUN is 45 creatinine 1.6 Patient was reevaluated today on 03/18/23, clinically the patient is feeling b danny, however his chest x-ray looks worse. Patient is on room air, O2 sats is 95%, he is hemodynamically stable, sputum cultures have been negative and nondiagnostic, Legionella antigen has been negative. Again I strongly believe that the patient doesn't have plch, that seems to be worsening, and I will discuss with the patient today the option of bronchoscopy and transbronchial biopsy to be done sooner on we could arrange for that to be done on outpatient basis. A calcitonin level was 1.11, patient received adequate course of antibiotics so far today the patient is afebrile hemodynamically stable and on room air. Objective - Vital Signs Vital signs: Vital Signs Temp 97.9 F 03/18/23 11:54 Pulse 92 03/18/23 11:54 Resp 20 03/18/23 11:54 BP 103/68 03/18/23 11:54 Pulse Ox 95 03/18/23 11:54 FiO2 Intake & Output 03/17/23 03/18/23 03/18/23 18:59 06:59 18:59 Intake Total 1200 180 Balance 1200 180 Intake: Oral 1200 180 Other: Voiding Method Toilet Toilet Toilet Urinal Urinal Urinal # Voids 1 - Exam Physical Exam: Revealed a 73-year-old male in no distress, on room air Head: Atraumatic, normocephalic HEENT:[Neck is supple.] [No neck masses.] [No thyromegaly.] [No JVD.] Chest: [Diminished breath sound bilaterally no crackles or rhonchi or wheezes Cardiac Exam: [Normal S1 and S2, no S3 gallop, no murmur.] Abdomen: [Soft, nontender, no megaly, no rebound, no guarding, normal bowel sounds.] Extremities: [No clubbing, no edema, no cyanosis.] Neurological Exam: [Alert and oriented 3 No focal neurologic deficit.] Psychiatric: Normal mood affect and normal mental status examination. - Labs CBC & Chem 7: 03/18/23 06:30 03/18/23 06:30 Labs: Abnormal Lab Results - Last 24 Hours (Table) 03/17/23 03/17/23 03/18/23 Range/Units 16:26 19:55 05:47 Hgb (13.0-17.5) gm/dL Plt Count (150-450) k/uL Potassium (3.5-5.1) mmol/L BUN (9-20) mg/dL Creatinine (0.66-1.25) mg/dL Glucose (74-99) mg/dL POC Glucose (mg/dL) 330 H 352 H 198 H (70-110) mg/dL Albumin (3.5-5.0) g/dL 03/18/23 03/18/23 03/18/23 Range/Units 06:30 06:30 11:45 Hgb 12.5 L (13.0-17.5) gm/dL Plt Count 455 H (150-450) k/uL Potassium 5.4 H (3.5-5.1) mmol/L BUN 48 H (9-20) mg/dL Creatinine 1.73 H (0.66-1.25) mg/dL Glucose 160 H (74-99) mg/dL POC Glucose (mg/dL) 199 H (70-110) mg/dL Albumin 2.8 L (3.5-5.0) g/dL Microbiology - Last 24 Hours (Table) 03/14/23 21:20 Legionella Culture - Preliminary Sputum 03/14/23 21:20 Gram Stain - Final Sputum Sputum Culture - Final Assessment and Plan Assessment: Impression: Acute hypoxic respiratory failure secondary to bilateral pneumonia, community- acquired, Acute COPD exacerbation Acute DKA Acute on chronic kidney disease Benign essential hypertension Dyslipidemia Type 2 diabetes on Lantus insulin and sliding scale coverage History of chronic polyps and diverticulosis History of vitamin D deficiency History of ITP. 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 REcommendation: Continue antibiotics, Consider bronchoscopy and BAL as well as transbronchial biopsy Continue insulin and monitor blood sugars follow the sliding scale coverag if patient is agreeable for bronchoscopy and transbronchial biopsy with continued on this admission otherwise could be done on outpatient basis. We will continue to follow Time with Patient: Less than 30
--- NOTE | 2023-03-18 15:51 | P.PN ---
Progress Note - Text Progress Note Date: 03/18/23 Patient was reevaluated again this afternoon and his was at bedside. Discussed with the patient and his his abnormal chest x-ray findings and his previous CT of the chest findings suggested to the patient to consider bronchoscopy with BAL and transbronchial biopsy which could be done on outpatient basis or could be done on this admission specially with his extensive worsening pneumonia in the left upper lobe. Over the patient could have this done on outpatient basis. Patient prefers to have it done on this admission so we'll proceed to bronchoscopy and transbronchial biopsy and BAL of the left upper lobe in the next 24 hours. We'll continue to follow
--- NOTE | 2023-03-18 16:00 | P.PN ---
Subjective Progress Note Date: 03/18/23 Josue Blackburn, is a 73-year-old male who presented to [facility] emergency room with a chief complaint of shortness of breath, cough and generalized weakness He was evaluated in the emergency room vital examination on presentation revealed a temperature of 97.4 pulse 92 respiration 18 blood pressure 103/60 pulse ox 93% on room air Laboratory data revealed a white blood count of 9.8 hemoglobin 14.1 platelet count 358 sodium 134 potassium 4.5 chloride 106 CO2 15 BUN 18 creatinine 1.86 Procalcitonin 2.45 Testing in the emergency room revealed extensive new air space disease throughout the left lung, suspicious for pneumonia. EKG revealed sinus rhythm with left anterior fascicular block and poor R-wave progression in the anterior leads Patient was admitted to medical floor for further evaluation and treatment On 03/15/2023 patient is alert and oriented 3 . Patient reports improvement with cough and shortness breath. Patient remains on IV antibiotics. Pulmonary service is following. Patient denies chest pain. Patient denies nausea vomiting or diarrhea. Patient denies any urinary burning or frequency on 03/16/2023 patient was seen and examined on the medical floor he is alert and oriented 3 in no apparent distress he is still complaining of cough and shortness of breath otherwise he denies any complaints there is no fever or chills no headache or dizziness no chest pain no nausea or vomiting no abdominal pain no diarrhea and no urinary symptoms. On 03/17/23 patient is alert and oriented 3. Patient reports improvement with shortness of breath. Still coughing. Current vital signs temp 98.2, heart rate 82, respiratory rate 18, blood pressure 110/59 with a pulse ox of 95% on 2 L. Will discuss with nursing to attempt to wean oxygen patient does not wear O2 at home. Awaiting for further recommendations from pulmonary services On 03/18/2023 patient was seen and examined on the medical floor he is alert and oriented 3 in no apparent distress he is still having cough and shortness of breath with activity otherwise he denies any complaints there is no fever or chills no headache or dizziness no chest pain no nausea or vomiting no abdominal pain no diarrhea and no urinary symptoms. Plan per pulmonary is to proceed with bronchoscopy. Continue IV antibiotic, will continue to follow. Objective - Vital Signs Vital signs: Vital Signs Temp 97.9 F 03/18/23 11:54 Pulse 92 03/18/23 14:06 Resp 20 03/18/23 14:06 BP 103/68 03/18/23 11:54 Pulse Ox 95 03/18/23 11:54 FiO2 Intake & Output 03/17/23 03/18/23 03/18/23 18:59 06:59 18:59 Intake Total 1200 360 Balance 1200 360 Intake: Oral 1200 360 Other: Voiding Method Toilet Toilet Toilet Urinal Urinal Urinal # Voids 1 2 - Exam In general patient is alert and oriented x 3 in no distress HEENT head normocephalic and atraumatic Neck is supple no JVD no goiter no lymphadenopathy no carotid bruit Chest examination is clear to auscultation no crackles no wheezing Cardiac exam reveals regular heart sounds S1 and S2 no gallops no murmurs Abdomen is soft nontender no organomegaly with normal bowel sounds Extremity exam reveals no edema no cyanosis or clubbing Neurological examination reveals no gross focal deficits - Labs CBC & Chem 7: 03/18/23 06:30 03/18/23 06:30 Labs: Abnormal Lab Results - Last 24 Hours (Table) 03/17/23 03/17/23 03/18/23 Range/Units 16:26 19:55 05:47 Hgb (13.0-17.5) gm/dL Plt Count (150-450) k/uL Potassium (3.5-5.1) mmol/L BUN (9-20) mg/dL Creatinine (0.66-1.25) mg/dL Glucose (74-99) mg/dL POC Glucose (mg/dL) 330 H 352 H 198 H (70-110) mg/dL Albumin (3.5-5.0) g/dL 03/18/23 03/18/23 03/18/23 Range/Units 06:30 06:30 11:45 Hgb 12.5 L (13.0-17.5) gm/dL Plt Count 455 H (150-450) k/uL Potassium 5.4 H (3.5-5.1) mmol/L BUN 48 H (9-20) mg/dL Creatinine 1.73 H (0.66-1.25) mg/dL Glucose 160 H (74-99) mg/dL POC Glucose (mg/dL) 199 H (70-110) mg/dL Albumin 2.8 L (3.5-5.0) g/dL Microbiology - Last 24 Hours (Table) 03/14/23 21:20 Legionella Culture - Preliminary Sputum Assessment and Plan Plan: Extensive pneumonia in the left lung Acute hypoxic respiratory failure present on admission maintained on oxygen supplements Possible sepsis awaiting blood culture results and lactic acid results Dehydration with acute kidney injury Diabetic ketoacidosis present on admission Underlying history of advanced COPD Underlying history of insulin-dependent diabetes mellitus Underlying history of hypertension Underlying history of hyperlipidemia History of immune thrombocytopenia 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
[2023-03-18 16:54] LABS: Glucose,Whole Blood 259 mg/dL (70-110)
[2023-03-18] MEDS: ENOXAPARIN 40 MG/0.4 ML SYRINGE SQ SCH (17:25)
[2023-03-18] MEDS: INSULIN DETEMIR (LEVEMIR) 100 UNIT/ML SYR SQ SCH (17:31)
[2023-03-18 20:22] LABS: Glucose,Whole Blood 318 mg/dL (70-110)
[2023-03-18] MEDS: PANTOPRAZOLE 40 MG TABLET PO SCH (20:30)
[2023-03-19 05:50] LABS: Glucose,Whole Blood 75 mg/dL (70-110)
[2023-03-19] MEDS: INSULIN ASPART (NovoLOG) 100 UNIT/ML VIAL SQ SCH ×4 (06:03→21:26)
[2023-03-19] MEDS: DAPAGLIFLOZIN PROPANEDIOL 10 MG TABLET PO SCH (08:22)
[2023-03-19] MEDS: LEVOTHYROXINE 25 MCG TAB PO SCH (08:22)
[2023-03-19] MEDS: ATORVASTATIN 20 MG TAB PO SCH (08:22)
[2023-03-19] MEDS: TAMSULOSIN 0.4 MG CAP.ER.24H PO SCH (08:23)
[2023-03-19] MEDS: FENOFIBRATE 160 MG TAB PO SCH (08:23)
[2023-03-19] MEDS: METOPROLOL TARTRATE 50 MG TAB PO SCH ×2 (08:27→21:26)
[2023-03-19 08:33] LABS: Basophils # (A) 0.1 k/uL (0-0.2); Basophils % (A) 1 %; Eosinophils # (A) 0.4 k/uL (0-0.7); Eosinophils % (A) 4 %; HCT 39.6 % (39.0-53.0); HGB 12.6 gm/dL (13.0-17.5); Lymphocytes # (A) 1.2 k/uL (1.0-4.8); Lymphocytes % (A) 14 %; MCH 28.5 pg (25.0-35.0); MCHC 31.8 g/dL (31.0-37.0); MCV 89.7 fL (80.0-100.0); Mean Platelet Volume 8.5; Monocytes # (A) 0.8 k/uL (0-1.0); Monocytes % (A) 9 %; Neutrophils # (A) 6.1 k/uL (1.3-7.7); Neutrophils % (A) 70 %; Platelet Count 441 k/uL (150-450); RBC 4.42 m/uL (4.30-5.90); RDW 13.4 % (11.5-15.5); WBC 8.7 k/uL (3.8-10.6)
[2023-03-19] MEDS: IPRATROPIUM 0.5 MG/2.5 ML NEBU INHALATION SCH ×4 (08:47→22:01)
[2023-03-19] MEDS: SYMBICORT 80-4.5 MCG INHALER INHALATION SCH ×2 (08:47→22:01)
[2023-03-19 08:56] LABS: ALT 17 U/L (4-49); AST 20 U/L (17-59); African American GFR (CKD) 53 (>60 ml/min/1.73 sqM); Albumin 2.8 g/dL (3.5-5.0); Alkaline Phosphatase 53 U/L (38-126); Anion Gap 6 mmol/L; Blood Urea Nitrogen 48 mg/dL (9-20); Calcium 9.7 mg/dL (8.4-10.2); Carbon Dioxide 22 mmol/L (22-30); Chloride 108 mmol/L (98-107); Glucose 141 mg/dL (74-99); Non-African American GFR(CKD) 46 (>60 ml/min/1.73 sqM); Potassium 5.1 mmol/L (3.5-5.1); Sodium 136 mmol/L (137-145); Total Bilirubin 0.4 mg/dL (0.2-1.3); Total Protein 7.8 g/dL (6.3-8.2)
[2023-03-19] MEDS: ASCORBIC ACID 500 MG TAB PO SCH (11:40)
[2023-03-19] MEDS: CHOLECALCIFEROL 25 MCG (1000 IU) TABLET PO SCH (11:40)
[2023-03-19] MEDS: LACTOBACILLUS ACIDOPHILUS/PECT 1 EACH CAPSULE PO SCH (11:41)
[2023-03-19] MEDS: MULTIVITAMINS, THERA 1 EACH TAB PO SCH (11:41)
[2023-03-19 11:45] LABS: Glucose,Whole Blood 180 mg/dL (70-110)
[2023-03-19] MEDS: ENOXAPARIN 40 MG/0.4 ML SYRINGE SQ SCH (12:09)
[2023-03-19] MEDS: SODIUM CHLORIDE 5% OPHTH DROPS 15 ML BTL BOTH EYES SCH ×2 (12:10→21:25)
[2023-03-19] MEDS: LOSARTAN 50 MG TAB PO SCH (12:10)
--- NOTE | 2023-03-19 13:48 | P.PN ---
Subjective Progress Note Date: 03/19/23 Principal diagnosis: Acute hypoxic Failure Secondary to Acute Bilateral Pneumonia, Advanced COPD, and DKA. This is a very pleasant 72-year-old male patient. He is known to me. I recently met this patient office regarding his chronic lung problems. He has chronic exertional dyspnea and cough. He had [id number] smoking history and he quit smoking back in 2016. He is known to have a renal mass and he has undergone a partial nephrectomy and his diseases been in remission. He also has issues with ITP and paraproteinemia/questionable multiple myeloma. He was having some difficulties in breathing and I saw him in the office. I started the patient trilogy of that the one inhalation a day. 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 Over the past 24-48 hours, the patient becomes lethargic and weak and based on that the patient ended up coming into the hospital. A repeat chest x-ray was done that showed significant consolidation of the left lung. The patient was started on IV antibiotics. He is known to have hypertension, hyperlipidemia, diabetes mellitus type 2 and chronic stage III kidney disease. In the emergency, his white cell count was at 9.8 with a hemoglobin of 14.1. Normal coagulation profile. The serum bicarb was down to 1 9 and a BUN was at 2.3 which improved and is currently down to 1.8. The most recent blood work shows a BUN of 18 with a creatinine of 1.8. Serum bicarbs improved and is currently up to 15. Patient is currently on insulin drip at 2 units an hour. He is also on D5 half-normal saline at the rate of 150 mL an hour. He did have +4 sugars and his UA and +1 ketones. He was positive for acetones. The viral screen was negative. He was started on broad-spectrum antibiotics and currently he is on Zithromax and he was also started on Rocephin. On 03/15/2023, the patient is feeling slightly improved compared to yesterday. Continues to have a cough which is essentially dry at this point in time. Remai ns on Rocephin and Zithromax. He remains also on oxygen which is currently running at 2 L per minute nasal cannula with a pulse ox of 92%. The white cell cause of 9.6. Hemoglobin is at 14.1. BUN is at 50 with a creatinine of 1.36 and the patient's acute kidney injury is also improving. Anion gap is down to 12/13 and the patient's serum bicarbs of 17. The patient was started back on acting insulin and the patient is currently on Levemir 25 units along with a slight scale coverage. The patient is also on for CPAP. Reevaluated today on 03/16/23, patient is doing well, he is on 2 L nasal cannula with O2 sat 93% he has some shortness of breath, some cough, but not in distress. His temp is 97 7 CBC is relatively normal WBC count is 9.4 basic metabolic profile is normal bicarb is 20 and his 48 creatinine 1.44 chest x-ray continues to show significant consolidation in the left midlung area and left upper lobe also similar findings noted in the right upper lobe. And remains on antibiotics Patient was reevaluated today on 03/17/23, patient remains on 2 L nasal cannula, O2 sats is 94%. Does not seem to be in any distress, went back and reviewed his CT of the chest which was done on outpatient basis, there is clearly evidence of nodular and cystic changes on his CT of the chest highly consistent with PLCH. Patient was supposed to have bronchoscopy with BAL and transbronchial biopsy on outpatient basis, however this never happened mostly because of his acute illness during this admission. Nonetheless the patient will eventually need transbronchial biopsies and BAL, patient will have staining of his BAL fluid for CD1a again this could be done on outpatient basis once the patient improves and recovers from this acute illness. In the meantime the patient remains on antib iotics for his pneumonia. W Josue today is 10 hemoglobin 13.1 basic metabolic profile is normal BUN is 45 creatinine 1.6 Patient was reevaluated today on 03/18/23, clinically the patient is feeling b danny, however his chest x-ray looks worse. Patient is on room air, O2 sats is 95%, he is hemodynamically stable, sputum cultures have been negative and nondiagnostic, Legionella antigen has been negative. Again I strongly believe that the patient doesn't have plch, that seems to be worsening, and I will discuss with the patient today the option of bronchoscopy and transbronchial biopsy to be done sooner on we could arrange for that to be done on outpatient basis. A calcitonin level was 1.11, patient received adequate course of antibiotics so far today the patient is afebrile hemodynamically stable and on room air. Reevaluated today on 03/19/23, patient continues to feel better, clinically however his chest x-ray showed worsening of his left upper lobe pneumonia. In addition to this I strongly believe that the patient has plch, patient clearly has cystic lung disease and underlying COPD but seems to be relatively quite severe. Patient remains on antibiotics, he was supposed to have bronchoscopy BAL and transbronchial biopsy today, however we couldn't schedule the patient before 2 PM, and I felt it best to reschedule the procedure until tomorrow. Patient was updated, and he seems to be agreeable with this. The meantime we'll continue to treat with bronchodilators, and antibiotics. Objective - Vital Signs Vital signs: Vital Signs Temp 97.8 F 03/19/23 12:00 Pulse 75 03/19/23 12:00 Resp 16 03/19/23 12:00 BP 97/67 03/19/23 12:00 Pulse Ox 97 03/19/23 12:00 FiO2 Intake & Output 03/18/23 03/19/23 03/19/23 18:59 06:59 18:59 Intake Total 540 Balance 540 Intake: Oral 540 Other: Voiding Method Toilet Toilet Toilet Urinal Urinal Urinal # Voids 2 1 2 - Exam Physical Exam: Revealed a 73-year-old male in no distress, on 2 L nasal cannula O2 saturation 97% Head: Atraumatic, normocephalic HEENT:[Neck is supple.] [No neck masses.] [No thyromegaly.] [No JVD.] Chest: [Diminished breath sound bilaterally no crackles or rhonchi or wheezes Cardiac Exam: [Normal S1 and S2, no S3 gallop, no murmur.] Abdomen: [Soft, nontender, no megaly, no rebound, no guarding, normal bowel sounds.] Extremities: [No clubbing, no edema, no cyanosis.] Neurological Exam: [Alert and oriented 3 No focal neurologic deficit.] Psychiatric: Normal mood affect and normal mental status examination. - Labs CBC & Chem 7: 03/19/23 07:36 03/19/23 07:36 Labs: Abnormal Lab Results - Last 24 Hours (Table) 03/18/23 03/18/23 03/19/23 Range/Units 16:52 20:20 07:36 Hgb 12.6 L (13.0-17.5) gm/dL Sodium (137-145) mmol/L Chloride (98-107) mmol/L BUN (9-20) mg/dL Creatinine (0.66-1.25) mg/dL Glucose (74-99) mg/dL POC Glucose (mg/dL) 259 H 318 H (70-110) mg/dL Albumin (3.5-5.0) g/dL 03/19/23 03/19/23 Range/Units 07:36 11:44 Hgb (13.0-17.5) gm/dL Sodium 136 L (137-145) mmol/L Chloride 108 H (98-107) mmol/L BUN 48 H (9-20) mg/dL Creatinine 1.51 H (0.66-1.25) mg/dL Glucose 141 H (74-99) mg/dL POC Glucose (mg/dL) 180 H (70-110) mg/dL Albumin 2.8 L (3.5-5.0) g/dL Microbiology - Last 24 Hours (Table) 03/13/23 17:14 Blood Culture - Final Blood 03/13/23 17:08 Blood Culture - Final Blood 03/14/23 21:20 Legionella Culture - Preliminary Sputum Assessment and Plan Assessment: Impression: Acute hypoxic respiratory failure secondary to bilateral pneumonia, community- acquired, Acute COPD exacerbation/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 Acute DKA Acute on chronic kidney disease Benign essential hypertension Dyslipidemia Type 2 diabetes on Lantus insulin and sliding scale coverage History of chronic polyps and diverticulosis History of vitamin D deficiency History of ITP. REcommendation: Finished a full 5 days course of treatment with antibiotics Rescheduled bronchoscopy to be done tomorrow patient would have BAL and tr ansbronchial biopsy of left upper lobe and lingula Sliding scale coverage for diabetes Continue bronchodilators We will continue to follow Time with Patient: Less than 30
[2023-03-19 16:24] LABS: Glucose,Whole Blood 273 mg/dL (70-110)
[2023-03-19] MEDS: INSULIN DETEMIR (LEVEMIR) 100 UNIT/ML SYR SQ SCH (17:04)
--- NOTE | 2023-03-19 17:06 | P.PN ---
Subjective Progress Note Date: 03/19/23 Josue Blackburn, is a 73-year-old male who presented to [facility] emergency room with a chief complaint of shortness of breath, cough and generalized weakness He was evaluated in the emergency room vital examination on presentation revealed a temperature of 97.4 pulse 92 respiration 18 blood pressure 103/60 pulse ox 93% on room air Laboratory data revealed a white blood count of 9.8 hemoglobin 14.1 platelet count 358 sodium 134 potassium 4.5 chloride 106 CO2 15 BUN 18 creatinine 1.86 Procalcitonin 2.45 Testing in the emergency room revealed extensive new air space disease throughout the left lung, suspicious for pneumonia. EKG revealed sinus rhythm with left anterior fascicular block and poor R-wave progression in the anterior leads Patient was admitted to medical floor for further evaluation and treatment On 03/15/2023 patient is alert and oriented 3 . Patient reports improvement with cough and shortness breath. Patient remains on IV antibiotics. Pulmonary service is following. Patient denies chest pain. Patient denies nausea vomiting or diarrhea. Patient denies any urinary burning or frequency on 03/16/2023 patient was seen and examined on the medical floor he is alert and oriented 3 in no apparent distress he is still complaining of cough and shortness of breath otherwise he denies any complaints there is no fever or chills no headache or dizziness no chest pain no nausea or vomiting no abdominal pain no diarrhea and no urinary symptoms. On 03/17/23 patient is alert and oriented 3. Patient reports improvement with shortness of breath. Still coughing. Current vital signs temp 98.2, heart rate 82, respiratory rate 18, blood pressure 110/59 with a pulse ox of 95% on 2 L. Will discuss with nursing to attempt to wean oxygen patient does not wear O2 at home. Awaiting for further recommendations from pulmonary services On 03/18/2023 patient was seen and examined on the medical floor he is alert and oriented 3 in no apparent distress he is still having cough and shortness of breath with activity otherwise he denies any complaints there is no fever or chills no headache or dizziness no chest pain no nausea or vomiting no abdominal pain no diarrhea and no urinary symptoms. Plan per pulmonary is to proceed with bronchoscopy. Continue IV antibiotic, will continue to follow. On 03/19/2023 patient was seen and examined on the medical floor he is alert and oriented 3 in no apparent distress he is complaining of cough cough and shor tness of breath with activity otherwise he denies any complaints there is no fever or chills no headache or dizziness no chest pain no nausea or vomiting no abdominal pain no diarrhea and no urinary symptoms. Plan per pulmonary is to proceed with bronchoscopy tomorrow. Continue IV antibiotic, will continue to follow. Objective - Vital Signs Vital signs: Vital Signs Temp 98.0 F 03/19/23 15:56 Pulse 81 03/19/23 15:56 Resp 16 03/19/23 15:56 BP 105/67 03/19/23 15:56 Pulse Ox 96 03/19/23 15:56 FiO2 Intake & Output 03/18/23 03/19/23 03/19/23 18:59 06:59 18:59 Intake Total 540 240 Balance 540 240 Intake: Oral 540 240 Other: Voiding Method Toilet Toilet Toilet Urinal Urinal Urinal # Voids 2 1 2 - Exam In general patient is alert and oriented x 3 in no distress HEENT head normocephalic and atraumatic Neck is supple no JVD no goiter no lymphadenopathy no carotid bruit Chest examination reveals a crackles in bases no wheezing Cardiac exam reveals regular heart sounds S1 and S2 no gallops no murmurs Abdomen is soft nontender no organomegaly with normal bowel sounds Extremity exam reveals no edema no cyanosis or clubbing Neurological examination reveals no gross focal deficits - Labs CBC & Chem 7: 03/19/23 07:36 03/19/23 07:36 Labs: Abnormal Lab Results - Last 24 Hours (Table) 03/18/23 03/18/23 03/19/23 Range/Units 16:52 20:20 07:36 Hgb 12.6 L (13.0-17.5) gm/dL Sodium (137-145) mmol/L Chloride (98-107) mmol/L BUN (9-20) mg/dL Creatinine (0.66-1.25) mg/dL Glucose (74-99) mg/dL POC Glucose (mg/dL) 259 H 318 H (70-110) mg/dL Albumin (3.5-5.0) g/dL 03/19/23 03/19/23 03/19/23 Range/Units 07:36 11:44 16:23 Hgb (13.0-17.5) gm/dL Sodium 136 L (137-145) mmol/L Chloride 108 H (98-107) mmol/L BUN 48 H (9-20) mg/dL Creatinine 1.51 H (0.66-1.25) mg/dL Glucose 141 H (74-99) mg/dL POC Glucose (mg/dL) 180 H 273 H (70-110) mg/dL Albumin 2.8 L (3.5-5.0) g/dL Microbiology - Last 24 Hours (Table) 03/13/23 17:14 Blood Culture - Final Blood 03/13/23 17:08 Blood Culture - Final Blood Assessment and Plan Plan: Extensive pneumonia in the left lung Acute hypoxic respiratory failure present on admission maintained on oxygen supplements Possible sepsis awaiting blood culture results and lactic acid results Dehydration with acute kidney injury Diabetic ketoacidosis present on admission Underlying history of advanced COPD Underlying history of insulin-dependent diabetes mellitus Underlying history of hypertension Underlying history of hyperlipidemia History of immune thrombocytopenia 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
[2023-03-19 19:32] LABS: Glucose,Whole Blood 217 mg/dL (70-110)
[2023-03-19] MEDS: PANTOPRAZOLE 40 MG TABLET PO SCH (21:26)
[2023-03-20 06:14] LABS: Glucose,Whole Blood 200 mg/dL (70-110)
[2023-03-20] MEDS: INSULIN ASPART (NovoLOG) 100 UNIT/ML VIAL SQ SCH ×4 (06:40→21:59)
[2023-03-20] MEDS: SYMBICORT 80-4.5 MCG INHALER INHALATION SCH ×2 (07:40→21:06)
[2023-03-20] MEDS: IPRATROPIUM 0.5 MG/2.5 ML NEBU INHALATION SCH ×4 (07:40→21:06)
[2023-03-20] MEDS: LEVOTHYROXINE 25 MCG TAB PO SCH (09:10)
[2023-03-20] MEDS: MULTIVITAMINS, THERA 1 EACH TAB PO SCH (09:10)
[2023-03-20] MEDS: CHOLECALCIFEROL 25 MCG (1000 IU) TABLET PO SCH (09:10)
[2023-03-20] MEDS: LOSARTAN 50 MG TAB PO SCH (09:10)
[2023-03-20] MEDS: ASCORBIC ACID 500 MG TAB PO SCH (09:11)
[2023-03-20] MEDS: FENOFIBRATE 160 MG TAB PO SCH (09:11)
[2023-03-20] MEDS: LACTOBACILLUS ACIDOPHILUS/PECT 1 EACH CAPSULE PO SCH (09:11)
[2023-03-20] MEDS: ENOXAPARIN 40 MG/0.4 ML SYRINGE SQ SCH (09:11)
[2023-03-20] MEDS: METOPROLOL TARTRATE 50 MG TAB PO SCH ×2 (09:11→21:59)
[2023-03-20] MEDS: DAPAGLIFLOZIN PROPANEDIOL 10 MG TABLET PO SCH (09:11)
[2023-03-20] MEDS: TAMSULOSIN 0.4 MG CAP.ER.24H PO SCH (09:11)
[2023-03-20] MEDS: ATORVASTATIN 20 MG TAB PO SCH (09:11)
[2023-03-20] MEDS: SODIUM CHLORIDE 5% OPHTH DROPS 15 ML BTL BOTH EYES SCH ×2 (09:12→21:59)
[2023-03-20 09:13] LABS: Basophils % (A) 0 %; Eosinophils # (A) 0.3 k/uL (0-0.7); Eosinophils % (A) 3 %; HCT 40.1 % (39.0-53.0); HGB 12.6 gm/dL (13.0-17.5); Hypochromasia Slight; Lymphocytes # (A) 1.2 k/uL (1.0-4.8); Lymphocytes % (A) 14 %; MCH 28.1 pg (25.0-35.0); MCHC 31.4 g/dL (31.0-37.0); MCV 89.6 fL (80.0-100.0); Mean Platelet Volume 8.6; Monocytes # (A) 0.7 k/uL (0-1.0); Monocytes % (A) 8 %; Neutrophils # (A) 6.3 k/uL (1.3-7.7); Neutrophils % (A) 72 %; Platelet Count 455 k/uL (150-450); RBC 4.48 m/uL (4.30-5.90); RDW 13.5 % (11.5-15.5); WBC 8.7 k/uL (3.8-10.6)
[2023-03-20 09:29] LABS: ALT 17 U/L (4-49); AST 21 U/L (17-59); African American GFR (CKD) 51 (>60 ml/min/1.73 sqM); Albumin 2.9 g/dL (3.5-5.0); Alkaline Phosphatase 50 U/L (38-126); Anion Gap 9 mmol/L; Blood Urea Nitrogen 49 mg/dL (9-20); Calcium 9.7 mg/dL (8.4-10.2); Carbon Dioxide 21 mmol/L (22-30); Chloride 106 mmol/L (98-107); Glucose 182 mg/dL (74-99); Non-African American GFR(CKD) 44 (>60 ml/min/1.73 sqM); Potassium 5.4 mmol/L (3.5-5.1); Sodium 136 mmol/L (137-145); Total Bilirubin 0.5 mg/dL (0.2-1.3)
[2023-03-20 11:22] LABS: Glucose,Whole Blood 185 mg/dL (70-110)
[2023-03-20] MEDS ORDERED: LACTATED RINGERS 1,000 ML IV ONE (12:18)
[2023-03-20] MEDS ORDERED: MIDAZOLAM 2 MG/2 ML VIAL ONE (12:22)
[2023-03-20] MEDS ORDERED: LIDOCAINE 1% INJ 10MG/ML (20 ML MDV) ONE (12:22)
[2023-03-20] MEDS ORDERED: fentaNYL (PF) 50 MCG/ML 2 ML AMP ONE (12:22)
[2023-03-20] MEDS ORDERED: SUCCINYLCHOLINE CHLORIDE 200 MG/10 ML VIAL IV ONE (12:22)
[2023-03-20] MEDS ORDERED: PROPOFOL 10 MG/ML 20 ML VIAL IV ONE (12:22)
[2023-03-20] MEDS: LACTATED RINGERS 1,000 ML IV ONE ×2 (12:58)
--- NOTE | 2023-03-20 13:04 | P.PN ---
Subjective Progress Note Date: 03/20/23 Principal diagnosis: Acute hypoxic Failure Secondary to Acute Bilateral Pneumonia, Advanced COPD, and DKA. This is a very pleasant 72-year-old male patient. He is known to me. I recently met this patient office regarding his chronic lung problems. He has chronic exertional dyspnea and cough. He had [id number] smoking history and he quit smoking back in 2016. He is known to have a renal mass and he has undergone a partial nephrectomy and his diseases been in remission. He also has issues with ITP and paraproteinemia/questionable multiple myeloma. He was having some difficulties in breathing and I saw him in the office. I started the patient trilogy of that the one inhalation a day. 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 Over the past 24-48 hours, the patient becomes lethargic and weak and based on that the patient ended up coming into the hospital. A repeat chest x-ray was done that showed significant consolidation of the left lung. The patient was started on IV antibiotics. He is known to have hypertension, hyperlipidemia, diabetes mellitus type 2 and chronic stage III kidney disease. In the emergency, his white cell count was at 9.8 with a hemoglobin of 14.1. Normal coagulation profile. The serum bicarb was down to 1 9 and a BUN was at 2.3 which improved and is currently down to 1.8. The most recent blood work shows a BUN of 18 with a creatinine of 1.8. Serum bicarbs improved and is currently up to 15. Patient is currently on insulin drip at 2 units an hour. He is also on D5 half-normal saline at the rate of 150 mL an hour. He did have +4 sugars and his UA and +1 ketones. He was positive for acetones. The viral screen was negative. He was started on broad-spectrum antibiotics and currently he is on Zithromax and he was also started on Rocephin. On 03/15/2023, the patient is feeling slightly improved compared to yesterday. Continues to have a cough which is essentially dry at this point in time. Remai ns on Rocephin and Zithromax. He remains also on oxygen which is currently running at 2 L per minute nasal cannula with a pulse ox of 92%. The white cell cause of 9.6. Hemoglobin is at 14.1. BUN is at 50 with a creatinine of 1.36 and the patient's acute kidney injury is also improving. Anion gap is down to 12/13 and the patient's serum bicarbs of 17. The patient was started back on acting insulin and the patient is currently on Levemir 25 units along with a slight scale coverage. The patient is also on for CPAP. Reevaluated today on 03/16/23, patient is doing well, he is on 2 L nasal cannula with O2 sat 93% he has some shortness of breath, some cough, but not in distress. His temp is 97 7 CBC is relatively normal WBC count is 9.4 basic metabolic profile is normal bicarb is 20 and his 48 creatinine 1.44 chest x-ray continues to show significant consolidation in the left midlung area and left upper lobe also similar findings noted in the right upper lobe. And remains on antibiotics Patient was reevaluated today on 03/17/23, patient remains on 2 L nasal cannula, O2 sats is 94%. Does not seem to be in any distress, went back and reviewed his CT of the chest which was done on outpatient basis, there is clearly evidence of nodular and cystic changes on his CT of the chest highly consistent with PLCH. Patient was supposed to have bronchoscopy with BAL and transbronchial biopsy on outpatient basis, however this never happened mostly because of his acute illness during this admission. Nonetheless the patient will eventually need transbronchial biopsies and BAL, patient will have staining of his BAL fluid for CD1a again this could be done on outpatient basis once the patient improves and recovers from this acute illness. In the meantime the patient remains on antib iotics for his pneumonia. W Josue today is 10 hemoglobin 13.1 basic metabolic profile is normal BUN is 45 creatinine 1.6 Patient was reevaluated today on 03/18/23, clinically the patient is feeling b danny, however his chest x-ray looks worse. Patient is on room air, O2 sats is 95%, he is hemodynamically stable, sputum cultures have been negative and nondiagnostic, Legionella antigen has been negative. Again I strongly believe that the patient doesn't have plch, that seems to be worsening, and I will discuss with the patient today the option of bronchoscopy and transbronchial biopsy to be done sooner on we could arrange for that to be done on outpatient basis. A calcitonin level was 1.11, patient received adequate course of antibiotics so far today the patient is afebrile hemodynamically stable and on room air. Reevaluated today on 03/19/23, patient continues to feel better, clinically however his chest x-ray showed worsening of his left upper lobe pneumonia. In addition to this I strongly believe that the patient has plch, patient clearly has cystic lung disease and underlying COPD but seems to be relatively quite severe. Patient remains on antibiotics, he was supposed to have bronchoscopy BAL and transbronchial biopsy today, however we couldn't schedule the patient before 2 PM, and I felt it best to reschedule the procedure until tomorrow. Patient was updated, and he seems to be agreeable with this. The meantime we'll continue to treat with bronchodilators, and antibiotics. Patient was reevaluated today on 03/20/23, clinically the patient is doing well, feels fine, breathing much better compared to his baseline. Patient finished a full course of antibiotics, however considering his cystic disease and possibility of PLCH, patient will undergo bronchoscopy and transbronchial biopsies today, we'll also perform bronchoalveolar lavage of the left upper lobe, and multiple transbronchial biopsies would be done on the left side including left upper lobe and lingula. Patient is agreeable to proceed with the procedure, he was made very well aware of this and benefits of the procedure. Please refer to the bronchoscopy report which will be following this dictation Objective - Vital Signs Vital signs: Vital Signs Temp 97.4 F L 03/20/23 12:02 Pulse 78 03/20/23 12:02 Resp 20 03/20/23 12:02 BP 117/70 03/20/23 12:02 Pulse Ox 94 L 03/20/23 12:02 FiO2 Intake & Output 03/19/23 03/20/23 03/20/23 18:59 06:59 18:59 Intake Total 358 100 Balance 358 100 Intake: IV 100 Oral 358 Other: Voiding Method Toilet Toilet Toilet Urinal Urinal Urinal # Voids 1 1 2 - Exam Physical Exam: Revealed a 73-year-old male in no distress, on room air. O2 saturation 94% Head: Atraumatic, normocephalic HEENT:[Neck is supple.] [No neck masses.] [No thyromegaly.] [No JVD.] Chest: [Diminished breath sound bilaterally no crackles or rhonchi or wheezes Cardiac Exam: [Normal S1 and S2, no S3 gallop, no murmur.] Abdomen: [Soft, nontender, no megaly, no rebound, no guarding, normal bowel sounds.] Extremities: [No clubbing, no edema, no cyanosis.] Neurological Exam: [Alert and oriented 3 No focal neurologic deficit.] Psychiatric: Normal mood affect and normal mental status examination. - Labs CBC & Chem 7: 03/20/23 07:59 03/20/23 07:59 Labs: Abnormal Lab Results - Last 24 Hours (Table) 03/19/23 03/19/23 03/20/23 Range/Units 16:23 19:17 06:08 Hgb (13.0-17.5) gm/dL Plt Count (150-450) k/uL Sodium (137-145) mmol/L Potassium (3.5-5.1) mmol/L Carbon Dioxide (22-30) mmol/L BUN (9-20) mg/dL Creatinine (0.66-1.25) mg/dL Glucose (74-99) mg/dL POC Glucose (mg/dL) 273 H 217 H 200 H (70-110) mg/dL Albumin (3.5-5.0) g/dL 03/20/23 03/20/23 03/20/23 Range/Units 07:59 07:59 11:21 Hgb 12.6 L (13.0-17.5) gm/dL Plt Count 455 H (150-450) k/uL Sodium 136 L (137-145) mmol/L Potassium 5.4 H (3.5-5.1) mmol/L Carbon Dioxide 21 L (22-30) mmol/L BUN 49 H (9-20) mg/dL Creatinine 1.56 H (0.66-1.25) mg/dL Glucose 182 H (74-99) mg/dL POC Glucose (mg/dL) 185 H (70-110) mg/dL Albumin 2.9 L (3.5-5.0) g/dL Assessment and Plan Assessment: Impression: Acute hypoxic respiratory failure secondary to bilateral pneumonia, community- acquired, Acute COPD exacerbation/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 Acute DKA Acute on chronic kidney disease Benign essential hypertension Dyslipidemia Type 2 diabetes on Lantus insulin and sliding scale coverage History of chronic polyps and diverticulosis History of vitamin D deficiency History of ITP. REcommendation: Finished a full 5 days course of treatment with antibiotics Bronchoscopy scheduled for today patient will have lavage and transbronchial biopsies of the left upper lobe and lingula please refer to operative report Could potentially consider discharge planning either later today or possibly in the next 24 hours Sliding scale coverage for diabetes Continue bronchodilators We will continue to follow Time with Patient: Less than 30
[2023-03-20 13:09] LABS: Glucose,Whole Blood 177 mg/dL (70-110)
--- NOTE | 2023-03-20 13:34 | XR ---
EXAMINATION TYPE: XR chest 1V DATE OF EXAM: 03/20/2023 COMPARISON: 03/18/2023 HISTORY: Postbronchoscopy TECHNIQUE: Single frontal view of the chest is obtained. FINDINGS: A large area of consolidation or mass left upper lobe stable. There is a tiny less than 5% left apical pneumothorax. COPD and chronic underlying interstitial lung disease are noted. Volume loss with elevated left hemidiaphragm. Heart size stable. Atherosclerotic c hange aorta. IMPRESSION: 1. Large area of pneumonia or mass left upper lobe stable. However, there is a less than 5% left apic al tiny pneumothorax.
--- NOTE | 2023-03-20 13:40 | FL ---
EXAMINATION TYPE: FL bronchoscopy DATE OF EXAM: 03/20/2023 CLINICAL HISTORY: TECHNIQUE: Fluoroscopy. COMPARISON: None. FINDINGS: Fluoroscopic guidance was provided during procedure. Total dose area product (DAP) in uGy* m?, mGy*cm? (or similar: 2.0049. IMPRESSION: As Above.
--- NOTE | 2023-03-20 14:11 | P.PN ---
Subjective Progress Note Date: 03/20/23 Josue Blackburn, is a 73-year-old male who presented to [facility] emergency room with a chief complaint of shortness of breath, cough and generalized weakness He was evaluated in the emergency room vital examination on presentation revealed a temperature of 97.4 pulse 92 respiration 18 blood pressure 103/60 pulse ox 93% on room air Laboratory data revealed a white blood count of 9.8 hemoglobin 14.1 platelet count 358 sodium 134 potassium 4.5 chloride 106 CO2 15 BUN 18 creatinine 1.86 Procalcitonin 2.45 Testing in the emergency room revealed extensive new air space disease throughout the left lung, suspicious for pneumonia. EKG revealed sinus rhythm with left anterior fascicular block and poor R-wave progression in the anterior leads Patient was admitted to medical floor for further evaluation and treatment On 03/15/2023 patient is alert and oriented 3 . Patient reports improvement with cough and shortness breath. Patient remains on IV antibiotics. Pulmonary service is following. Patient denies chest pain. Patient denies nausea vomiting or diarrhea. Patient denies any urinary burning or frequency on 03/16/2023 patient was seen and examined on the medical floor he is alert and oriented 3 in no apparent distress he is still complaining of cough and shortness of breath otherwise he denies any complaints there is no fever or chills no headache or dizziness no chest pain no nausea or vomiting no abdominal pain no diarrhea and no urinary symptoms. On 03/17/23 patient is alert and oriented 3. Patient reports improvement with shortness of breath. Still coughing. Current vital signs temp 98.2, heart rate 82, respiratory rate 18, blood pressure 110/59 with a pulse ox of 95% on 2 L. Will discuss with nursing to attempt to wean oxygen patient does not wear O2 at home. Awaiting for further recommendations from pulmonary services On 03/18/2023 patient was seen and examined on the medical floor he is alert and oriented 3 in no apparent distress he is still having cough and shortness of breath with activity otherwise he denies any complaints there is no fever or chills no headache or dizziness no chest pain no nausea or vomiting no abdominal pain no diarrhea and no urinary symptoms. Plan per pulmonary is to proceed with bronchoscopy. Continue IV antibiotic, will continue to follow. On 03/19/2023 patient was seen and examined on the medical floor he is alert and oriented 3 in no apparent distress he is complaining of cough cough and shor tness of breath with activity otherwise he denies any complaints there is no fever or chills no headache or dizziness no chest pain no nausea or vomiting no abdominal pain no diarrhea and no urinary symptoms. Plan per pulmonary is to proceed with bronchoscopy tomorrow. Continue IV antibiotic, will continue to follow. On 03/20/2023 patient was seen and examined on the medical floor he is alert and oriented 3 in no apparent distress, he is still complaining of cough and shortness of breath with any activity otherwise he denies any complaints there is no fever or chills no headache or dizziness no chest pain, no nausea or vomiting no abdominal pain no diarrhea and no urinary symptoms. He is scheduled for bronchoscopy today. Objective - Vital Signs Vital signs: Vital Signs Temp 97.9 F 03/20/23 11:19 Pulse 89 03/20/23 11:19 Resp 18 03/20/23 08:00 BP 107/63 03/20/23 11:19 Pulse Ox 94 L 03/20/23 11:19 FiO2 Intake & Output 03/19/23 03/20/23 03/20/23 18:59 06:59 18:59 Intake Total 358 Balance 358 Intake: Oral 358 Other: Voiding Method Toilet Toilet Toilet Urinal Urinal Urinal # Voids 1 1 2 - Exam In general patient is alert and oriented x 3 in no distress HEENT head normocephalic and atraumatic Neck is supple no JVD no goiter no lymphadenopathy no carotid bruit Chest examination reveals a crackles in bases no wheezing Cardiac exam reveals regular heart sounds S1 and S2 no gallops no murmurs Abdomen is soft nontender no organomegaly with normal bowel sounds Extremity exam reveals no edema no cyanosis or clubbing Neurological examination reveals no gross focal deficits - Labs CBC & Chem 7: 03/20/23 07:59 03/20/23 07:59 Labs: Abnormal Lab Results - Last 24 Hours (Table) 03/19/23 03/19/23 03/19/23 Range/Units 11:44 16:23 19:17 Hgb (13.0-17.5) gm/dL Plt Count (150-450) k/uL Sodium (137-145) mmol/L Potassium (3.5-5.1) mmol/L Carbon Dioxide (22-30) mmol/L BUN (9-20) mg/dL Creatinine (0.66-1.25) mg/dL Glucose (74-99) mg/dL POC Glucose (mg/dL) 180 H 273 H 217 H (70-110) mg/dL Albumin (3.5-5.0) g/dL 03/20/23 03/20/23 03/20/23 Range/Units 06:08 07:59 07:59 Hgb 12.6 L (13.0-17.5) gm/dL Plt Count 455 H (150-450) k/uL Sodium 136 L (137-145) mmol/L Potassium 5.4 H (3.5-5.1) mmol/L Carbon Dioxide 21 L (22-30) mmol/L BUN 49 H (9-20) mg/dL Creatinine 1.56 H (0.66-1.25) mg/dL Glucose 182 H (74-99) mg/dL POC Glucose (mg/dL) 200 H (70-110) mg/dL Albumin 2.9 L (3.5-5.0) g/dL 03/20/23 Range/Units 11:21 Hgb (13.0-17.5) gm/dL Plt Count (150-450) k/uL Sodium (137-145) mmol/L Potassium (3.5-5.1) mmol/L Carbon Dioxide (22-30) mmol/L BUN (9-20) mg/dL Creatinine (0.66-1.25) mg/dL Glucose (74-99) mg/dL POC Glucose (mg/dL) 185 H (70-110) mg/dL Albumin (3.5-5.0) g/dL Assessment and Plan Plan: Extensive pneumonia in the left lung Acute hypoxic respiratory failure present on admission maintained on oxygen supplements Possible sepsis awaiting blood culture results and lactic acid results Dehydration with acute kidney injury Diabetic ketoacidosis present on admission Underlying history of advanced COPD Underlying history of insulin-dependent diabetes mellitus Underlying history of hypertension Underlying history of hyperlipidemia History of immune thrombocytopenia 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
--- NOTE | 2023-03-20 14:59 | OP ---
OPERATIVE REPORT DATE OF SERVICE : PROCEDURE PERFORMED: Bronchoscopy, bronchoalveolar lavage of the left upper lobe, multiple transbronchial biopsies using fluoroscopy guidance of the left upper lobe, and superior and inferior lingula. 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 ANESTHESIA USED: General anesthesia. PROCEDURE PERFORMED: The patient was brought in to the bronchoscopy suite, he was intubated by [employer], and placed on a ventilator. Then, we were monitoring his O2 saturation continuously, blood pressure was intermittently monitored, and cardiac rhythm was continuously monitored. Fluoroscopy was used. The bronchoscope was advanced through the adapter of the endotracheal tube down to the distal trachea, thorough examination was done of the abrahan, right upper lobe, right middle lobe, right lower lobe, left upper lobe lingula and left lower lobe. There was no evidence of any endobronchial secretions or any patent secretions throughout the airways. There was no evidence of any endobronchial tumors. Then lavage of the left upper lobe anterior apical segment was performed. Lavage was sent for different diagnostic studies including cultures and including S100 stain and CD1a stain. This is mostly to rule out PLCH. Then using fluoroscopy, the bronchoscope was wedged into the inferior segment of the lingula, and the multiple transbronchial biopsies done from the inferior segment also done from the superior segment of the lingula and from the anterior apical segment of the left upper lobe. Multiple transbronchial biopsies were obtained using fluoroscopy as a guidance, the procedures were well tolerated, no immediate complications. Chest x-ray was ordered postoperatively. MMODL / IJN: [id number] /
[2023-03-20 16:49] LABS: Glucose,Whole Blood 231 mg/dL (70-110)
[2023-03-20] MEDS: INSULIN DETEMIR (LEVEMIR) 100 UNIT/ML SYR SQ SCH (17:46)
[2023-03-20 20:30] LABS: Glucose,Whole Blood 276 mg/dL (70-110)
[2023-03-20] MEDS: PANTOPRAZOLE 40 MG TABLET PO SCH (21:59)
[2023-03-20] MEDS: HYDROcodone/APAP 5-325MG 1 EACH TAB PO PRN (23:46)
[2023-03-21 03:50] LABS: Appearance,BF Clear (Clear); RBC, Body Fluid 50 /UL (0-2000)
[2023-03-21 05:56] LABS: Glucose,Whole Blood 42 mg/dL (70-110)
[2023-03-21] MEDS: INSULIN ASPART (NovoLOG) 100 UNIT/ML VIAL SQ SCH ×4 (06:00→20:14)
[2023-03-21 06:12] LABS: Glucose,Whole Blood 64 mg/dL (70-110)
[2023-03-21 06:26] LABS: Glucose,Whole Blood 72 mg/dL (70-110)
[2023-03-21] MEDS: IPRATROPIUM 0.5 MG/2.5 ML NEBU INHALATION SCH ×4 (07:38→21:05)
[2023-03-21] MEDS: SYMBICORT 80-4.5 MCG INHALER INHALATION SCH ×2 (07:38→21:05)
[2023-03-21] MEDS: ATORVASTATIN 20 MG TAB PO SCH (08:39)
[2023-03-21] MEDS: LEVOTHYROXINE 25 MCG TAB PO SCH (08:39)
[2023-03-21] MEDS: TAMSULOSIN 0.4 MG CAP.ER.24H PO SCH (08:39)
[2023-03-21] MEDS: LOSARTAN 50 MG TAB PO SCH (08:39)
[2023-03-21] MEDS: LACTOBACILLUS ACIDOPHILUS/PECT 1 EACH CAPSULE PO SCH (08:39)
[2023-03-21] MEDS: ASCORBIC ACID 500 MG TAB PO SCH (08:39)
[2023-03-21] MEDS: MULTIVITAMINS, THERA 1 EACH TAB PO SCH (08:39)
[2023-03-21] MEDS: FENOFIBRATE 160 MG TAB PO SCH (08:40)
[2023-03-21] MEDS: SODIUM CHLORIDE 5% OPHTH DROPS 15 ML BTL BOTH EYES SCH ×2 (08:40→20:14)
[2023-03-21] MEDS: CHOLECALCIFEROL 25 MCG (1000 IU) TABLET PO SCH (08:40)
[2023-03-21] MEDS: ENOXAPARIN 40 MG/0.4 ML SYRINGE SQ SCH (08:40)
[2023-03-21] MEDS: DAPAGLIFLOZIN PROPANEDIOL 10 MG TABLET PO SCH (08:40)
[2023-03-21] MEDS: METOPROLOL TARTRATE 50 MG TAB PO SCH ×2 (08:40→20:14)
--- NOTE | 2023-03-21 10:25 | XR ---
EXAM: XR chest 1V portable CLINICAL INDICATION:Male, 73 years old with history of ptx; [facility] COMPARISON: 03/20/2023 and before TECHNIQUE: Chest single view. FINDINGS: Lines/tubes/devices: EKG leads overlie the chest. No indwelling lines are seen. Cardiomediastinum: Silhouette appears stable. Heart appears mildly enlarged. Mildly tortuous aorta. Hiatal hernia was be tter seen previously. Vasculature: No increased pulmonary vasculature. Lungs/pleura: Mild asymmetric elevation of the left hemidiaphragm again noted. Background cystic lung disease, bett er seen on prior CT. Slightly greater opacity along the base of the left lung may reflect infiltrate or atelectasis, with or without small pleural effusion. Area of ovoid airspace opacity along the piotr pheral left midlung zone appears similar to previous. Increase in size of a left pneumothorax, now sm all to moderate measuring about 19 mm in greatest thickness. No shift of mediastinal structures. Bones/soft tissues: Bony thorax appears grossly unchanged as seen. Regional soft tissues appear unremarkable. IMPRESSION: 1. Slightly greater opacity along the base of the left lung may reflect infiltrate or atelectasis, w ith or without small pleural effusion. 2. Relatively large area of ovoid airspace opacity along the peripheral left midlung zone appears si milar to previous. Correlate clinically with biopsy findings. 3. Increase in size of a left pneumothorax, now small to moderate measuring about 19 mm in greatest thickness.
[2023-03-21 11:19] LABS: Glucose,Whole Blood 142 mg/dL (70-110)
[2023-03-21 12:14] LABS: African American GFR (CKD) 51 (>60 ml/min/1.73 sqM); Anion Gap 7 mmol/L; Blood Urea Nitrogen 42 mg/dL (9-20); Calcium 9.6 mg/dL (8.4-10.2); Carbon Dioxide 27 mmol/L (22-30); Chloride 103 mmol/L (98-107); Glucose 152 mg/dL (74-99); Non-African American GFR(CKD) 44 (>60 ml/min/1.73 sqM); Potassium 5.3 mmol/L (3.5-5.1); Sodium 137 mmol/L (137-145)
--- NOTE | 2023-03-21 12:37 | P.PN ---
Subjective Progress Note Date: 03/21/23 Principal diagnosis: Acute hypoxic Failure Secondary to Acute Bilateral Pneumonia, Advanced COPD, and DKA. This is a very pleasant 72-year-old male patient. He is known to me. I recently met this patient office regarding his chronic lung problems. He has chronic exertional dyspnea and cough. He had [id number] smoking history and he quit smoking back in 2016. He is known to have a renal mass and he has undergone a partial nephrectomy and his diseases been in remission. He also has issues with ITP and paraproteinemia/questionable multiple myeloma. He was having some difficulties in breathing and I saw him in the office. I started the patient trilogy of that the one inhalation a day. 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 Over the past 24-48 hours, the patient becomes lethargic and weak and based on that the patient ended up coming into the hospital. A repeat chest x-ray was done that showed significant consolidation of the left lung. The patient was started on IV antibiotics. He is known to have hypertension, hyperlipidemia, diabetes mellitus type 2 and chronic stage III kidney disease. In the emergency, his white cell count was at 9.8 with a hemoglobin of 14.1. Normal coagulation profile. The serum bicarb was down to 1 9 and a BUN was at 2.3 which improved and is currently down to 1.8. The most recent blood work shows a BUN of 18 with a creatinine of 1.8. Serum bicarbs improved and is currently up to 15. Patient is currently on insulin drip at 2 units an hour. He is also on D5 half-normal saline at the rate of 150 mL an hour. He did have +4 sugars and his UA and +1 ketones. He was positive for acetones. The viral screen was negative. He was started on broad-spectrum antibiotics and currently he is on Zithromax and he was also started on Rocephin. On 03/15/2023, the patient is feeling slightly improved compared to yesterday. Continues to have a cough which is essentially dry at this point in time. Remai ns on Rocephin and Zithromax. He remains also on oxygen which is currently running at 2 L per minute nasal cannula with a pulse ox of 92%. The white cell cause of 9.6. Hemoglobin is at 14.1. BUN is at 50 with a creatinine of 1.36 and the patient's acute kidney injury is also improving. Anion gap is down to 12/13 and the patient's serum bicarbs of 17. The patient was started back on acting insulin and the patient is currently on Levemir 25 units along with a slight scale coverage. The patient is also on for CPAP. Reevaluated today on 03/16/23, patient is doing well, he is on 2 L nasal cannula with O2 sat 93% he has some shortness of breath, some cough, but not in distress. His temp is 97 7 CBC is relatively normal WBC count is 9.4 basic metabolic profile is normal bicarb is 20 and his 48 creatinine 1.44 chest x-ray continues to show significant consolidation in the left midlung area and left upper lobe also similar findings noted in the right upper lobe. And remains on antibiotics Patient was reevaluated today on 03/17/23, patient remains on 2 L nasal cannula, O2 sats is 94%. Does not seem to be in any distress, went back and reviewed his CT of the chest which was done on outpatient basis, there is clearly evidence of nodular and cystic changes on his CT of the chest highly consistent with PLCH. Patient was supposed to have bronchoscopy with BAL and transbronchial biopsy on outpatient basis, however this never happened mostly because of his acute illness during this admission. Nonetheless the patient will eventually need transbronchial biopsies and BAL, patient will have staining of his BAL fluid for CD1a again this could be done on outpatient basis once the patient improves and recovers from this acute illness. In the meantime the patient remains on antib iotics for his pneumonia. W Josue today is 10 hemoglobin 13.1 basic metabolic profile is normal BUN is 45 creatinine 1.6 Patient was reevaluated today on 03/18/23, clinically the patient is feeling b danny, however his chest x-ray looks worse. Patient is on room air, O2 sats is 95%, he is hemodynamically stable, sputum cultures have been negative and nondiagnostic, Legionella antigen has been negative. Again I strongly believe that the patient doesn't have plch, that seems to be worsening, and I will discuss with the patient today the option of bronchoscopy and transbronchial biopsy to be done sooner on we could arrange for that to be done on outpatient basis. A calcitonin level was 1.11, patient received adequate course of antibiotics so far today the patient is afebrile hemodynamically stable and on room air. Reevaluated today on 03/19/23, patient continues to feel better, clinically however his chest x-ray showed worsening of his left upper lobe pneumonia. In addition to this I strongly believe that the patient has plch, patient clearly has cystic lung disease and underlying COPD but seems to be relatively quite severe. Patient remains on antibiotics, he was supposed to have bronchoscopy BAL and transbronchial biopsy today, however we couldn't schedule the patient before 2 PM, and I felt it best to reschedule the procedure until tomorrow. Patient was updated, and he seems to be agreeable with this. The meantime we'll continue to treat with bronchodilators, and antibiotics. Patient was reevaluated today on 03/20/23, clinically the patient is doing well, feels fine, breathing much better compared to his baseline. Patient finished a full course of antibiotics, however considering his cystic disease and possibility of PLCH, patient will undergo bronchoscopy and transbronchial biopsies today, we'll also perform bronchoalveolar lavage of the left upper lobe, and multiple transbronchial biopsies would be done on the left side including left upper lobe and lingula. Patient is agreeable to proceed with the procedure, he was made very well aware of this and benefits of the procedure. Please refer to the bronchoscopy report which will be following this dictation Reevaluated today on 03/21/23, patient is doing well, relatively asymptomatic, however his chest x-ray this morning showed slight expansion of his left sided pneumothorax which is clear. 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 But the pneumothorax is clearly iatrogenic after transbronchial biopsy of the left upper lobe and lingula. Considering the slight expansion of the pneumothorax, it is not large enough to require chest tube placement and it is not too small to discharge the patient home yet. I would recommend observation of the patient for the next 24 hours and if there is no change in the size of the pneumothorax and the patient could be discharged home tomorrow. Otherwise may have to place a thoravent, if there is expansion of the pneumothorax. Medically the patient is stable and asymptomatic. O2 saturation is 95% on room Objective - Vital Signs Vital signs: Vital Signs Temp 97.8 F 03/21/23 08:00 Pulse 74 03/21/23 10:32 Resp 18 03/21/23 08:00 BP 101/56 03/21/23 08:00 Pulse Ox 94 L 03/21/23 10:32 FiO2 Intake & Output 03/20/23 03/21/23 03/21/23 18:59 06:59 18:59 Intake Total 1640 480 Balance 1640 480 Intake: IV 1200 Intake, IV Titration 200 Amount Lactated Ringers 1,000 ml 200 @ 0 mls/hr IV .[employer] [facility] Rx#:[id number] Oral 240 480 Other: Voiding Method Toilet Toilet Urinal Urinal # Voids 2 # Bowel Movements 0 - Exam Physical Exam: Revealed a 73-year-old male in no distress, on room air. O2 saturation 94% Head: Atraumatic, normocephalic HEENT:[Neck is supple.] [No neck masses.] [No thyromegaly.] [No JVD.] Chest: [Diminished breath sound bilaterally no crackles or rhonchi or wheezes Cardiac Exam: [Normal S1 and S2, no S3 gallop, no murmur.] Abdomen: [Soft, nontender, no megaly, no rebound, no guarding, normal bowel sounds.] Extremities: [No clubbing, no edema, no cyanosis.] Neurological Exam: [Alert and oriented 3 No focal neurologic deficit.] Psychiatric: Normal mood affect and normal mental status examination. - Labs CBC & Chem 7: 03/20/23 07:59 03/21/23 11:09 Labs: Abnormal Lab Results - Last 24 Hours (Table) 03/20/23 03/20/23 03/20/23 Range/Units 13:07 16:47 20:29 Potassium (3.5-5.1) mmol/L BUN (9-20) mg/dL Creatinine (0.66-1.25) mg/dL Glucose (74-99) mg/dL POC Glucose (mg/dL) 177 H 231 H 276 H (70-110) mg/dL 03/21/23 03/21/23 03/21/23 Range/Units 05:54 06:10 11:09 Potassium 5.3 H (3.5-5.1) mmol/L BUN 42 H (9-20) mg/dL Creatinine 1.54 H (0.66-1.25) mg/dL Glucose 152 H (74-99) mg/dL POC Glucose (mg/dL) 42 L 64 L (70-110) mg/dL 03/21/23 Range/Units 11:18 Potassium (3.5-5.1) mmol/L BUN (9-20) mg/dL Creatinine (0.66-1.25) mg/dL Glucose (74-99) mg/dL POC Glucose (mg/dL) 142 H (70-110) mg/dL Assessment and Plan Assessment: Impression: Acute hypoxic respiratory failure secondary to bilateral pneumonia, community- acquired, Acute COPD exacerbation/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 Acute DKA Acute on chronic kidney disease Benign essential hypertension Dyslipidemia Type 2 diabetes on Lantus insulin and sliding scale coverage History of chronic polyps and diverticulosis History of vitamin D deficiency History of ITP. Acute iatrogenic left-sided pneumothorax post bronchoscopy and transbronchial biopsy REcommendation: Finished a full 5 days course of treatment with antibiotics Advised patient to remain inpatient for the next 24 hours and repeat chest x-ray in 24 hours and decide either to discharge the patient or to place a thoravent Repeat chest x-ray in a.m. Sliding scale coverage for diabetes Continue bronchodilators We will continue to follow Time with Patient: Less than 30
--- NOTE | 2023-03-21 15:02 | P.PN ---
Subjective Progress Note Date: 03/21/23 Patient is evaluated today on the medical floor initially brought in for hyperglycemia and has been continued on his home dose of Levemir at at bedtime however he has now been hypoglycemic and this was discontinued for now. 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 Patient has completed 5 days of oral antibiotics. He does continue on nasal cannula oxygen at 4-5 L. Home oxygen test was completed and patient is dropping down to 85% on room air at this time. He had a follow-up chest x-ray today which revealed slightly greater [place] on the base of the left lung may reflect infiltrate or atelectasis with or without small pleural effusion. There is a large area of ovoid airspace opacity along the peripheral left mid lung zone similar to previous. Increase in size of the left pneumothorax now small to moderate measuring about 19 mm in greatest thickness. Pulmonary considering thoravent placement depending on AM chest xray. Review of Systems Constitutional: Denied any fatigue denied any fever. Cardio vascular: denied any chest pain, palpitations Gastrointestinal: denied any nausea, vomiting, diarrhea Pulmonary: Denied any shortness of breath cough Neurologic denied any new focal deficits All inpatient medications were reviewed and appropriate changes in these medications as dictated in the interval history and assessment and plan. PHYSICAL EXAMINATION: GENERAL: The patient is alert and oriented x3, not in any acute distress. Well developed, well nourished. On 4L of oxygen HEENT: Pupils are round and equally reacting to light. EOMI. No scleral icterus. No conjunctival pallor. Normocephalic, atraumatic. No pharyngeal erythema. No thyromegaly. CARDIOVASCULAR: S1 and S2 present. No murmurs, rubs, or gallops. PULMONARY: Faint scattered wheezing. ABDOMEN: Soft, nontender, nondistended, normoactive bowel sounds. No palpable organomegaly. MUSCULOSKELETAL: No joint swelling or deformity. EXTREMITIES: No cyanosis, clubbing, or pedal edema. NEUROLOGICAL: Gross neurological examination did not reveal any focal deficits. SKIN: No rashes. Assessment Left upper lobe pneumonia likely due to suspected langerhans cell histiocytosis found on bronchoscopy. Mild to moderate pneumothorax Acute hypoxic respiratory failure present on admission maintained on oxygen s upplements due to pneumonia Dehydration with acute kidney injury Diabetic ketoacidosis present on admission Underlying history of advanced COPD Underlying history of insulin-dependent diabetes mellitus currently with hypoglycemia. 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 Pulmonary following AM chest xray patient may need thoravent placement He did fail home oxygen test 85% on room air with activity The impression and plan of care has been dictated by Nicolette Nevarez, Nurse Practitioner as directed. Dr. Tiffanie MD I have performed a history and physical examination and medical decision making of this patient, discussed the same with the dictator, and agree with the d ictators assessment and plan as written, documented as a scribe. Based on total visit time, I have performed more than 50% of this visit. Objective - Vital Signs Vital signs: Vital Signs Temp 97.8 F 03/21/23 12:37 Pulse 78 03/21/23 12:37 Resp 18 03/21/23 12:37 BP 98/61 03/21/23 12:37 Pulse Ox 96 03/21/23 12:37 FiO2 Intake & Output 03/20/23 03/21/23 03/21/23 18:59 06:59 18:59 Intake Total 1640 480 Balance 1640 480 Intake: IV 1200 Intake, IV Titration 200 Amount Lactated Ringers 1,000 ml 200 @ 0 mls/hr IV .[facility] Rx#:[id number] Oral 240 480 Other: Voiding Method Toilet Toilet Urinal Urinal # Voids 2 # Bowel Movements 0 - Labs CBC & Chem 7: 03/20/23 07:59 03/21/23 11:09 Labs: Abnormal Lab Results - Last 24 Hours (Table) 03/20/23 03/20/23 03/21/23 Range/Units 16:47 20:29 05:54 Potassium (3.5-5.1) mmol/L BUN (9-20) mg/dL Creatinine (0.66-1.25) mg/dL Glucose (74-99) mg/dL POC Glucose (mg/dL) 231 H 276 H 42 L (70-110) mg/dL 03/21/23 03/21/23 03/21/23 Range/Units 06:10 11:09 11:18 Potassium 5.3 H (3.5-5.1) mmol/L BUN 42 H (9-20) mg/dL Creatinine 1.54 H (0.66-1.25) mg/dL Glucose 152 H (74-99) mg/dL POC Glucose (mg/dL) 64 L 142 H (70-110) mg/dL Assessment and Plan Time with Patient: Less than 30
[2023-03-21 16:39] LABS: Glucose,Whole Blood 325 mg/dL (70-110)
[2023-03-21] MEDS: HYDROcodone/APAP 5-325MG 1 EACH TAB PO PRN ×2 (17:05→23:45)
[2023-03-21 19:32] LABS: Glucose,Whole Blood 336 mg/dL (70-110)
[2023-03-21] MEDS: PANTOPRAZOLE 40 MG TABLET PO SCH (20:14)
[2023-03-21] MEDS: INSULIN DETEMIR (LEVEMIR) 100 UNIT/ML SYR SQ SCH (20:14)
[2023-03-22 02:01] LABS: Glucose,Whole Blood 109 mg/dL (70-110)
[2023-03-22 05:46] LABS: Glucose,Whole Blood 131 mg/dL (70-110)
[2023-03-22] MEDS: INSULIN ASPART (NovoLOG) 100 UNIT/ML VIAL SQ SCH ×4 (06:01→21:08)
[2023-03-22] MEDS: DAPAGLIFLOZIN PROPANEDIOL 10 MG TABLET PO SCH (08:12)
[2023-03-22] MEDS: TAMSULOSIN 0.4 MG CAP.ER.24H PO SCH (08:12)
[2023-03-22] MEDS: LACTOBACILLUS ACIDOPHILUS/PECT 1 EACH CAPSULE PO SCH (08:12)
[2023-03-22] MEDS: ASCORBIC ACID 500 MG TAB PO SCH (08:12)
[2023-03-22] MEDS: LEVOTHYROXINE 25 MCG TAB PO SCH (08:12)
[2023-03-22] MEDS: ATORVASTATIN 20 MG TAB PO SCH (08:12)
[2023-03-22] MEDS: FENOFIBRATE 160 MG TAB PO SCH (08:12)
[2023-03-22] MEDS: METOPROLOL TARTRATE 50 MG TAB PO SCH ×2 (08:12→21:08)
[2023-03-22] MEDS: MULTIVITAMINS, THERA 1 EACH TAB PO SCH (08:12)
[2023-03-22] MEDS: CHOLECALCIFEROL 25 MCG (1000 IU) TABLET PO SCH (08:12)
[2023-03-22] MEDS: ENOXAPARIN 40 MG/0.4 ML SYRINGE SQ SCH (08:16)
--- NOTE | 2023-03-22 08:29 | XR ---
EXAMINATION TYPE: XR chest 1V DATE OF EXAM: 03/22/2023 8:02 AM CLINICAL INDICATION:Male, 73 years old with history of ptx follow up; [facility] COMPARISON: 03/21/2023 and before TECHNIQUE: XR chest 1V Frontal view of the chest. FINDINGS: Lines/Tubes/Devices: EKG leads overlie the chest. No indwelling lines are seen. Heart/mediastinum: Cardiomediastinal silhouette is stable. Heart appears mildly enlarged. Pulmonary vascularity: Not increased. Lungs/Pleura: Mild asymmetric elevation of the left hemidiaphragm again noted. Background cystic lung disease, better seen on prior CT. Improved opacity along the base of the left lung suggesting resolv ing atelectasis/airspace disease. Area of ovoid airspace opacity along the peripheral left midlung zo ne appears similar to previous. Left pneumothorax not clearly defined but appears slightly decreased from prior. Possible trace left pleural effusion. Musculoskeletal: Osseous structures appear grossly unchanged with mild degenerative changes noted. Other findings: None significant. IMPRESSION: 1. Improved opacity along the base of the left lung suggesting resolving atelectasis/airspace diseas e. 2. Area of ovoid airspace opacity along the peripheral left midlung zone appears similar to previous . 3. Left pneumothorax not clearly defined but appears slightly decreased from prior. Continued follow -up.
[2023-03-22] MEDS: IPRATROPIUM 0.5 MG/2.5 ML NEBU INHALATION SCH ×4 (09:21→20:12)
[2023-03-22] MEDS: SYMBICORT 80-4.5 MCG INHALER INHALATION SCH ×2 (09:21→20:12)
--- NOTE | 2023-03-22 11:01 | P.PN ---
Subjective Progress Note Date: 03/22/23 Patient is evaluated today on the medical floor initially brought in for hyperglycemia and has been continued on his home dose of Levemir at at bedtime however he has now been hypoglycemic and this was discontinued for now. 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 Patient has completed 5 days of oral antibiotics. He does continue on nasal cannula oxygen at 4-5 L. Home oxygen test was completed and patient is dropping down to 85% on room air at this time. He had a follow-up chest x-ray today which revealed slightly greater [place] on the base of the left lung may reflect infiltrate or atelectasis with or without small pleural effusion. There is a large area of ovoid airspace opacity along the peripheral left mid lung zone similar to previous. Increase in size of the left pneumothorax now small to moderate measuring about 19 mm in greatest thickness. Pulmonary considering thoravent placement depending on AM chest xray. 03/22/2023 Patient evaluated today sitting up in bed. He is using his incentive spirometer. He does report feeling better when oxygen is being worn. He did fail his home oxygen test, 85% on room air yesterday with activity. Chest x-ray today shows improved airspace opacity on the basal left lung suggesting resolving atelectasis/airspace disease. There is the area of ovoid airspace along the peripheral left lung zone appears similar to previous. Left pneumothorax not clearly defined but appears slightly decreased from prior. Continued follow-up. Hemodynamically he is stable. Pulmonary following closely. Review of Systems Constitutional: Denied any fatigue denied any fever. Cardio vascular: denied any chest pain, palpitations Gastrointestinal: denied any nausea, vomiting, diarrhea Pulmonary: Denied any shortness of breath cough Neurologic denied any new focal deficits All inpatient medications were reviewed and appropriate changes in these medications as dictated in the interval history and assessment and plan. PHYSICAL EXAMINATION: GENERAL: The patient is alert and oriented x3, not in any acute distress. Well developed, well nourished. On 4L of oxygen HEENT: Pupils are round and equally reacting to light. EOMI. No scleral icterus. No conjunctival pallor. Normocephalic, atraumatic. No pharyngeal erythema. No thyromegaly. CARDIOVASCULAR: S1 and S2 present. No murmurs, rubs, or gallops. PULMONARY: Faint scattered wheezing. ABDOMEN: Soft, nontender, nondistended, normoactive bowel sounds. No palpable organomegaly. MUSCULOSKELETAL: No joint swelling or deformity. EXTREMITIES: No cyanosis, clubbing, or pedal edema. NEUROLOGICAL: Gross neurological examination did not reveal any focal deficits. SKIN: No rashes. Assessment Left upper lobe pneumonia likely due to suspected langerhans cell histiocytosis found on bronchoscopy. Mild to moderate pneumothorax; improved on todays xray. Acute hypoxic respiratory failure present on admission maintained on oxygen supplements due to pneumonia Dehydration with acute kidney injury Diabetic ketoacidosis present on admission Underlying history of advanced COPD Underlying history of insulin-dependent diabetes mellitus currently with hypoglycemia. 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 Pulmonary following He did fail home oxygen test 85% on room air with activity will need to be repeated on the day of discharge and most likely will need home oxygen. The impression and plan of care has been dictated by Nicolette Nevarez, Nurse Practitioner as directed. Dr. Tiffanie MD I have performed a history and physical examination and medical decision making of this patient, discussed the same with the dictator, and agree with the dictators assessment and plan as written, documented as a scribe. Based on total visit time, I have performed more than 50% of this visit. Objective - Vital Signs Vital signs: Vital Signs Temp 97.8 F 03/22/23 08:11 Pulse 86 03/22/23 09:32 Resp 18 03/22/23 08:11 BP 122/68 03/22/23 08:11 Pulse Ox 95 03/22/23 09:24 FiO2 Intake & Output 03/21/23 03/22/23 03/22/23 19:59 06:59 18:59 Intake Total 10 Output Total 0 Balance 10 Intake: IV 10 Invasive Line 2 10 Oral Output: Gastric Drainage 0 Urine 0 Stool 0 Urine/Stool Mix 0 Emesis 0 Oral Regurgitation 0 Other 0 Other: Voiding Method Toilet Urinal # Voids 0 # Bowel Movements 0 - Labs CBC & Chem 7: 03/20/23 07:59 03/21/23 11:09 Labs: Abnormal Lab Results - Last 24 Hours (Table) 03/21/23 03/21/23 03/21/23 Range/Units 11:09 16:34 19:30 Potassium 5.3 H (3.5-5.1) mmol/L BUN 42 H (9-20) mg/dL Creatinine 1.54 H (0.66-1.25) mg/dL Glucose 152 H (74-99) mg/dL POC Glucose (mg/dL) 325 H 336 H (70-110) mg/dL 03/22/23 Range/Units 05:44 Potassium (3.5-5.1) mmol/L BUN (9-20) mg/dL Creatinine (0.66-1.25) mg/dL Glucose (74-99) mg/dL POC Glucose (mg/dL) 131 H (70-110) mg/dL Microbiology - Last 24 Hours (Table) 03/20/23 12:36 Gram Stain - Preliminary Bronchial Washings - Left 03/20/23 12:36 Acid Fast Bacilli Smear - Preliminary Lung - Left Upper Lobe Assessment and Plan Time with Patient: Less than 30
[2023-03-22 11:42] LABS: Glucose,Whole Blood 168 mg/dL (70-110)
[2023-03-22] MEDS: SODIUM CHLORIDE 5% OPHTH DROPS 15 ML BTL BOTH EYES SCH ×2 (12:06→21:09)
--- NOTE | 2023-03-22 14:04 | P.PN ---
Subjective Progress Note Date: 03/22/23 Principal diagnosis: Acute hypoxic Failure Secondary to Acute Bilateral Pneumonia, Advanced COPD, and DKA. This is a very pleasant 72-year-old male patient. He is known to me. I recently met this patient office regarding his chronic lung problems. He has chronic exertional dyspnea and cough. He had 81-clld-buar smoking history and he quit smoking back in 2016. He is known to have a renal mass and he has undergone a partial nephrectomy and his diseases been in remission. He also has issues with ITP and paraproteinemia/questionable multiple myeloma. He was having some difficulties in breathing and I saw him in the office. I started the patient trilogy of that the one inhalation a day. 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 Over the past 24-48 hours, the patient becomes lethargic and weak and based on that the patient ended up coming into the hospital. A repeat chest x-ray was done that showed significant consolidation of the left lung. The patient was started on IV antibiotics. He is known to have hypertension, hyperlipidemia, diabetes mellitus type 2 and chronic stage III kidney disease. In the emergency, his white cell count was at 9.8 with a hemoglobin of 14.1. Normal coagulation profile. The serum bicarb was down to 1 9 and a BUN was at 2.3 which improved and is currently down to 1.8. The most recent blood work shows a BUN of 18 with a creatinine of 1.8. Serum bicarbs improved and is currently up to 15. Patient is currently on insulin drip at 2 units an hour. He is also on D5 half-normal saline at the rate of 150 mL an hour. He did have +4 sugars and his UA and +1 ketones. He was positive for acetones. The viral screen was negative. He was started on broad-spectrum antibiotics and currently he is on Zithromax and he was also started on Rocephin. On 03/15/2023, the patient is feeling slightly improved compared to yesterday. Continues to have a cough which is essentially dry at this point in time. Remai ns on Rocephin and Zithromax. He remains also on oxygen which is currently running at 2 L per minute nasal cannula with a pulse ox of 92%. The white cell cause of 9.6. Hemoglobin is at 14.1. BUN is at 50 with a creatinine of 1.36 and the patient's acute kidney injury is also improving. Anion gap is down to 12/13 and the patient's serum bicarbs of 17. The patient was started back on acting insulin and the patient is currently on Levemir 25 units along with a slight scale coverage. The patient is also on for CPAP. Reevaluated today on 03/16/23, patient is doing well, he is on 2 L nasal cannula with O2 sat 93% he has some shortness of breath, some cough, but not in distress. His temp is 97 7 CBC is relatively normal WBC count is 9.4 basic metabolic profile is normal bicarb is 20 and his 48 creatinine 1.44 chest x-ray continues to show significant consolidation in the left midlung area and left upper lobe also similar findings noted in the right upper lobe. And remains on antibiotics Patient was reevaluated today on 03/17/23, patient remains on 2 L nasal cannula, O2 sats is 94%. Does not seem to be in any distress, went back and reviewed his CT of the chest which was done on outpatient basis, there is clearly evidence of nodular and cystic changes on his CT of the chest highly consistent with PLCH. Patient was supposed to have bronchoscopy with BAL and transbronchial biopsy on outpatient basis, however this never happened mostly because of his acute illness during this admission. Nonetheless the patient will eventually need transbronchial biopsies and BAL, patient will have staining of his BAL fluid for CD1a again this could be done on outpatient basis once the patient improves and recovers from this acute illness. In the meantime the patient remains on antib iotics for his pneumonia. W Josue today is 10 hemoglobin 13.1 basic metabolic profile is normal BUN is 45 creatinine 1.6 Patient was reevaluated today on 03/18/23, clinically the patient is feeling b danny, however his chest x-ray looks worse. Patient is on room air, O2 sats is 95%, he is hemodynamically stable, sputum cultures have been negative and nondiagnostic, Legionella antigen has been negative. Again I strongly believe that the patient doesn't have plch, that seems to be worsening, and I will discuss with the patient today the option of bronchoscopy and transbronchial biopsy to be done sooner on we could arrange for that to be done on outpatient basis. A calcitonin level was 1.11, patient received adequate course of antibiotics so far today the patient is afebrile hemodynamically stable and on room air. Reevaluated today on 03/19/23, patient continues to feel better, clinically however his chest x-ray showed worsening of his left upper lobe pneumonia. In addition to this I strongly believe that the patient has plch, patient clearly has cystic lung disease and underlying COPD but seems to be relatively quite severe. Patient remains on antibiotics, he was supposed to have bronchoscopy BAL and transbronchial biopsy today, however we couldn't schedule the patient before 2 PM, and I felt it best to reschedule the procedure until tomorrow. Patient was updated, and he seems to be agreeable with this. The meantime we'll continue to treat with bronchodilators, and antibiotics. Patient was reevaluated today on 03/20/23, clinically the patient is doing well, feels fine, breathing much better compared to his baseline. Patient finished a full course of antibiotics, however considering his cystic disease and possibility of PLCH, patient will undergo bronchoscopy and transbronchial biopsies today, we'll also perform bronchoalveolar lavage of the left upper lobe, and multiple transbronchial biopsies would be done on the left side including left upper lobe and lingula. Patient is agreeable to proceed with the procedure, he was made very well aware of this and benefits of the procedure. Please refer to the bronchoscopy report which will be following this dictation Reevaluated today on 03/21/23, patient is doing well, relatively asymptomatic, however his chest x-ray this morning showed slight expansion of his left sided pneumothorax which is clear. 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 But the pneumothorax is clearly iatrogenic after transbronchial biopsy of the left upper lobe and lingula. Considering the slight expansion of the pneumothorax, it is not large enough to require chest tube placement and it is not too small to discharge the patient home yet. I would recommend observation of the patient for the next 24 hours and if there is no change in the size of the pneumothorax and the patient could be discharged home tomorrow. Otherwise may have to place a thoravent, if there is expansion of the pneumothorax. Medically the patient is stable and asymptomatic. O2 saturation is 95% on room Reevaluated today on 03/22/23, patient is doing well today, left-sided pneumothorax which was iatrogenic is a smaller in size patient is doing well clinically and I believe I will clear the patient to be discharged home and follow up with it will take another 5 days at least to have his transbronchial biopsies back not to mention the patient had to BAL sent for S100 stain and CD1a staining these are pending, I still believe that the patient has most likely plch unless for otherwise he had considering the improvement in the size of the pneumothorax, no need for chest tube placement. Patient is now on 3 L nasal cannula O2 sats is 98% may have to be evaluated with a 6 minute walk in the morning and decide whether the patient needs home O2. Objective - Vital Signs Vital signs: Vital Signs Temp 97.8 F 03/22/23 08:11 Pulse 80 03/22/23 12:45 Resp 16 03/22/23 12:41 BP 99/65 03/22/23 12:41 Pulse Ox 98 03/22/23 12:41 FiO2 Intake & Output 03/21/23 03/22/23 03/22/23 19:59 06:59 18:59 Intake Total 10 Output Total 0 Balance 10 Intake: IV 10 Invasive Line 2 10 Oral Output: Gastric Drainage 0 Urine 0 Stool 0 Urine/Stool Mix 0 Emesis 0 Oral Regurgitation 0 Other 0 Other: Voiding Method Toilet Urinal # Voids 0 # Bowel Movements 0 - Exam Physical Exam: Revealed a 73-year-old male in no distress, on 3 L nasal cannula, O2 sat is 98% Head: Atraumatic, normocephalic HEENT:[Neck is supple.] [No neck masses.] [No thyromegaly.] [No JVD.] Chest: [Diminished breath sound bilaterally no crackles or rhonchi or wheezes Cardiac Exam: [Normal S1 and S2, no S3 gallop, no murmur.] Abdomen: [Soft, nontender, no megaly, no rebound, no guarding, normal bowel sounds.] Extremities: [No clubbing, no edema, no cyanosis.] Neurological Exam: [Alert and oriented 3 No focal neurologic deficit.] Psychiatric: Normal mood affect and normal mental status examination. - Labs CBC & Chem 7: 03/20/23 07:59 03/21/23 11:09 Labs: Abnormal Lab Results - Last 24 Hours (Table) 03/21/23 03/21/23 03/22/23 Range/Units 16:34 19:30 05:44 POC Glucose (mg/dL) 325 H 336 H 131 H (70-110) mg/dL 03/22/23 Range/Units 11:41 POC Glucose (mg/dL) 168 H (70-110) mg/dL Microbiology - Last 24 Hours (Table) 03/20/23 12:36 Gram Stain - Preliminary Bronchial Washings - Left 03/20/23 12:36 Acid Fast Bacilli Smear - Preliminary Lung - Left Upper Lobe Assessment and Plan Assessment: Impression: Acute hypoxic respiratory failure secondary to bilateral pneumonia, community- acquired, Acute COPD exacerbation/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 Acute DKA Acute on chronic kidney disease Benign essential hypertension Dyslipidemia Type 2 diabetes on Lantus insulin and sliding scale coverage History of chronic polyps and diverticulosis History of vitamin D deficiency History of ITP. Acute iatrogenic left-sided pneumothorax post bronchoscopy and transbronchial biopsy REcommendation: Finished a full 5 days course of treatment with antibiotics Discussed and reviewed with the patient has follow-up chest x-ray today and made aware that his left-sided pneumothorax is smaller and no need for chest tube placement Consider discharge planning in the next 23 hours May need home oxygen Follow-up with Dr. Brito who has seen him before for his cystic lung disease and COPD Sliding scale coverage for diabetes Continue bronchodilators Again I'm recommending discharge home in the next 24 hours Time with Patient: Less than 30
[2023-03-22 16:22] LABS: Glucose,Whole Blood 290 mg/dL (70-110)
[2023-03-22 21:02] LABS: Glucose,Whole Blood 258 mg/dL (70-110)
[2023-03-22] MEDS: INSULIN DETEMIR (LEVEMIR) 100 UNIT/ML SYR SQ SCH (21:08)
[2023-03-22] MEDS: PANTOPRAZOLE 40 MG TABLET PO SCH (21:08)
[2023-03-23 02:40] LABS: Glucose,Whole Blood 182 mg/dL (70-110)
[2023-03-23] MEDS: INSULIN ASPART (NovoLOG) 100 UNIT/ML VIAL SQ SCH ×3 (06:27→16:45)
[2023-03-23 06:34] LABS: Glucose,Whole Blood 150 mg/dL (70-110)
[2023-03-23] MEDS: MULTIVITAMINS, THERA 1 EACH TAB PO SCH (08:29)
[2023-03-23] MEDS: ASCORBIC ACID 500 MG TAB PO SCH (08:29)
[2023-03-23] MEDS: FENOFIBRATE 160 MG TAB PO SCH (08:29)
[2023-03-23] MEDS: DAPAGLIFLOZIN PROPANEDIOL 10 MG TABLET PO SCH (08:29)
[2023-03-23] MEDS: TAMSULOSIN 0.4 MG CAP.ER.24H PO SCH (08:29)
[2023-03-23] MEDS: METOPROLOL TARTRATE 50 MG TAB PO SCH (08:30)
[2023-03-23] MEDS: LACTOBACILLUS ACIDOPHILUS/PECT 1 EACH CAPSULE PO SCH (08:30)
[2023-03-23] MEDS: LEVOTHYROXINE 25 MCG TAB PO SCH (08:30)
[2023-03-23] MEDS: ATORVASTATIN 20 MG TAB PO SCH (08:30)
[2023-03-23 08:36] VITALS: TEMP 98.1
[2023-03-23] MEDS: SYMBICORT 80-4.5 MCG INHALER INHALATION SCH (09:14)
[2023-03-23] MEDS: IPRATROPIUM 0.5 MG/2.5 ML NEBU INHALATION SCH ×3 (09:14→17:20)
[2023-03-23 10:00] LABS: Nucleated Cells, Body Fluid 400 /UL
[2023-03-23 11:24] LABS: Glucose,Whole Blood 194 mg/dL (70-110)
[2023-03-23] MEDS: SODIUM CHLORIDE 5% OPHTH DROPS 15 ML BTL BOTH EYES SCH (11:56)
[2023-03-23] MEDS: CHOLECALCIFEROL 25 MCG (1000 IU) TABLET PO SCH (11:58)
[2023-03-23] MEDS: ENOXAPARIN 40 MG/0.4 ML SYRINGE SQ SCH (11:58)
--- NOTE | 2023-03-23 12:44 | P.PN ---
Subjective Progress Note Date: 03/23/23 Principal diagnosis: Pneumonia/diabetic ketoacidosis. Reevaluated today on 03/19/23, patient continues to feel better, clinically however his chest x-ray showed worsening of his left upper lobe pneumonia. In addition to this I strongly believe that the patient has plch, patient clearly has cystic lung disease and underlying COPD but seems to be relatively quite severe. Patient remains on antibiotics, he was supposed to have bronchoscopy BAL and transbronchial biopsy today, however we couldn't schedule the patient before 2 PM, and I felt it best to reschedule the procedure until tomorrow. Patient was updated, and he seems to be agreeable with this. The meantime we'll continue to treat with bronchodilators, and antibiotics. Patient was reevaluated today on 03/20/23, clinically the patient is doing well, feels fine, breathing much better compared to his baseline. Patient finished a full course of antibiotics, however considering his cystic disease and possibility of PLCH, patient will undergo bronchoscopy and transbronchial biopsies today, we'll also perform bronchoalveolar lavage of the left upper lobe, and multiple transbronchial biopsies would be done on the left side including left upper lobe and lingula. Patient is agreeable to proceed with the procedure, he was made very well aware of this and benefits of the procedure. Please refer to the bronchoscopy report which will be following this dictation Reevaluated today on 03/21/23, patient is doing well, relatively asymptomatic, however his chest x-ray this morning showed slight expansion of his left sided pneumothorax which is clear. 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 But the pneumothorax is clearly iatrogenic after transbronchial biopsy of the left upper lobe and lingula. Considering the slight expansion of the pneumothorax, it is not large enough to require chest tube placement and it is not too small to discharge the patient home yet. I would recommend observation of the patient for the next 24 hours and if there is no change in the size of the pneumothorax and the patient could be discharged ho me tomorrow. Otherwise may have to place a thoravent, if there is expansion of the pneumothorax. Medically the patient is stable and asymptomatic. O2 saturation is 95% on room Reevaluated today on 03/22/23, patient is doing well today, left-sided pneumothorax which was iatrogenic is a smaller in size patient is doing well clinically and I believe I will clear the patient to be discharged home and follow up with it will take another 5 days at least to have his transbronchial biopsies back not to mention the patient had to BAL sent for S100 stain and CD1a staining these are pending, I still believe that the patient has most likely plch unless for otherwise he had considering the improvement in the size of the pneumothorax, no need for chest tube placement. Patient is now on 3 L nasal can nula O2 sats is 98% may have to be evaluated with a 6 minute walk in the morning and decide whether the patient needs home O2. Progress note dated 03/23/2023. 73-year-old male seen in room 360. Currently, the patient appears to be relatively stable. He's currently on oxygen at 3 L. He will be assessed for the need for home oxygen. He is not receiving any IV fluids. He still is coughing, and producing some phlegm. Patient is hoping to be discharged home soon. Current labs included glucose of 194. The patient underwent bronchoscopy, and BAL, with biopsies, on March 20. Currently, results are pending. Thus far, BAL, is pending and/or negative. Objective - Vital Signs Vital signs: Vital Signs Temp 98.1 F 03/23/23 08:28 Pulse 71 03/23/23 11:59 Resp 18 03/23/23 11:59 BP 111/62 03/23/23 11:59 Pulse Ox 96 03/23/23 11:59 FiO2 Intake & Output 03/22/23 03/23/23 03/23/23 18:59 06:59 18:59 Intake Total 362 10 490 Output Total 0 Balance 362 10 490 Intake: IV 20 10 10 Invasive Line 2 20 10 10 Oral 342 480 Output: Gastric Drainage 0 Urine 0 Stool 0 Urine/Stool Mix 0 Emesis 0 Oral Regurgitation 0 Other 0 Other: Voiding Method Toilet Toilet Toilet Urinal Urinal Urinal # Voids 2 2 1 # Bowel Movements 0 - Exam No acute distress, oriented 3. 3 L saturation is 96%. HEENT examination is grossly unremarkable. Mucous membranes are moist. No oral lesions. Neck supple. Full range of motion. No adenopathy thyromegaly or neck vein distention. Cardiovascular examination reveals regular rhythm rate. S1-S2 normal. No S3 or S4. No discernible murmur noted. Heart rate 71 bpm. Lungs reveal scattered rhonchi. No wheezes or crackles. Breath sounds are equal bilaterally. Abdomen soft bowel sounds are heard. No masses or tenderness. Extremities are intact. No cyanosis clubbing or edema. Skin is without rash or lesion. Neurologic examination is brief but nonfocal. - Labs CBC & Chem 7: 03/20/23 07:59 03/21/23 11:09 Labs: Abnormal Lab Results - Last 24 Hours (Table) 03/22/23 03/22/23 03/23/23 Range/Units 16:20 21:00 02:39 POC Glucose (mg/dL) 290 H 258 H 182 H (70-110) mg/dL 03/23/23 03/23/23 Range/Units 06:27 11:21 POC Glucose (mg/dL) 150 H 194 H (70-110) mg/dL Microbiology - Last 24 Hours (Table) 03/20/23 12:36 Gram Stain - Final Bronchial Washings - Left Bronchial Washings Culture - Final Assessment and Plan Assessment: Acute hypoxemic respiratory failure, secondary to bilateral pneumonia, community -acquired. Clinically much improved. 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 Acute diabetic ketoacidosis. Acute on chronic kidney disease. Essential hypertension. Hyperlipidemia. Type 2 diabetes. History of chronic polyps and diverticulosis. History of vitamin D deficiency. History of ITP. Iatrogenic left-sided pneumothorax, following bronchoscopy/biopsies. Plan: Plan dated 03/23/2023. The patient is doing very well. He seen today in room 360. He is currently on 3 L. He is hoping to be discharged soon. He will follow-up with my partner, Dr. Brito in the next 10 days to 2 weeks. By then, the samples from bronchoscopy and transbronchial biopsies will surely be available. Additional recommendations and suggestions are forthcoming. The patient will be assessed for home O2. Labs, x-rays, and medications are reviewed. Prognosis is guarded. Time with Patient: Less than 30
[2023-03-23 16:03] VITALS: BP 112/70; PULSE 77; RESP 16
[2023-03-23 16:27] LABS: Glucose,Whole Blood 207 mg/dL (70-110)
--- NOTE | 2023-03-23 17:15 | P.DS ---
Providers Date of admission: 03/13/23 17:02 Expected date of discharge: 03/23/23 Attending physician: Jed Del Rio Consults: 03/13/23 21:49 Consult Physician Routine Consulting Provider: Toby Brito Consult Reason/Comments: Pneumonia Do you want consulting provider notified?: Yes Primary care physician: Jed Del Rio [facility] Course: Diagnosis on discharge: Extensive pneumonia in the left lung Acute hypoxic respiratory failure present on admission maintained on oxygen supplements Possible sepsis awaiting blood culture results and lactic acid results Dehydration with acute kidney injury Diabetic ketoacidosis present on admission Underlying history of advanced COPD Underlying history of insulin-dependent diabetes mellitus Underlying history of hypertension Underlying history of hyperlipidemia History of immune thrombocytopenia History of kidney tumor currently in remission with history of partial nephrectomy Underlying history of vitamin D deficiency Previous history of colonic polyps Hospital course: Josue Blackburn, is a 73-year-old male who presented to [facility] emergency room with a chief complaint of shortness of breath, cough and generalized weakness He was evaluated in the emergency room vital examination on presentation revealed a temperature of 97.4 pulse 92 respiration 18 blood pressure 103/60 pulse ox 93% on room air Laboratory data revealed a white blood count of 9.8 hemoglobin 14.1 platelet count 358 sodium 134 potassium 4.5 chloride 106 CO2 15 BUN 18 creatinine 1.86 Procalcitonin 2.45 Testing in the emergency room revealed extensive new air space disease throughout the left lung, suspicious for pneumonia. EKG revealed sinus rhythm with left anterior fascicular block and poor R-wave progression in the anterior leads Patient was admitted to medical floor for further evaluation and treatment On 03/15/2023 patient is alert and oriented 3 . Patient reports improvement with cough and shortness breath. Patient remains on IV antibiotics. Pulmonary service is following. Patient denies chest pain. Patient denies nausea vomiting or diarrhea. Patient denies any urinary burning or frequency on 03/16/2023 patient was seen and examined on the medical floor he is alert and oriented 3 in no apparent distress he is still complaining of cough and shortness of breath otherwise he denies any complaints there is no fever or chills no headache or dizziness no chest pain no nausea or vomiting no abdominal pain no diarrhea and no urinary symptoms. On 03/17/23 patient is alert and oriented 3. Patient reports improvement with shortness of breath. Still coughing. Current vital signs temp 98.2, heart rate 82, respiratory rate 18, blood pressure 110/59 with a pulse ox of 95% on 2 L. Will discuss with nursing to attempt to wean oxygen patient does not wear O2 at home. Awaiting for further recommendations from pulmonary services On 03/18/2023 patient was seen and examined on the medical floor he is alert and oriented 3 in no apparent distress he is still having cough and shortness of breath with activity otherwise he denies any complaints there is no fever or chills no headache or dizziness no chest pain no nausea or vomiting no abdominal pain no diarrhea and no urinary symptoms. Plan per pulmonary is to proceed with bronchoscopy. Continue IV antibiotic, will continue to follow. On 03/19/2023 patient was seen and examined on the medical floor he is alert and oriented 3 in no apparent distress he is complaining of cough cough and shortness of breath with activity otherwise he denies any complaints there is no fever or chills no headache or dizziness no chest pain no nausea or vomiting no abdominal pain no diarrhea and no urinary symptoms. Plan per pulmonary is to proceed with bronchoscopy tomorrow. Continue IV antibiotic, will continue to follow. On 03/20/2023 patient was seen and examined on the medical floor he is alert and oriented 3 in no apparent distress, he is still complaining of cough and shortness of breath with any activity otherwise he denies any complaints there is no fever or chills no headache or dizziness no chest pain, no nausea or vomiting no abdominal pain no diarrhea and no urinary symptoms. He is scheduled for bronchoscopy today. 03/21/23 Patient is evaluated today on the medical floor initially brought in for hyperglycemia and has been continued on his home dose of Levemir at at bedtime however he has now been hypoglycemic and this was discontinued for now. 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 Patient has completed 5 days of oral antibiotics. He does continue on nasal cannula oxygen at 4-5 L. Home oxygen test was completed and patient is dropping down to 85% on room air at this time. He had a follow-up chest x-ray today which revealed slightly greater [place] on the base of the left lung may reflect infiltrate or atelectasis with or without small pleural effusion. There is a large area of ovoid airspace opacity along the peripheral left mid lung zone similar to previous. Increase in size of the left pneumothorax now small to moderate measuring about 19 mm in greatest thickness. Pulmonary considering thoravent placement depending on AM chest xray. 03/22/2023 Patient evaluated today sitting up in bed. He is using his incentive spirometer. He does report feeling better when oxygen is being worn. He did fail his home oxygen test, 85% on room air yesterday with activity. Chest x-ray today shows improved airspace opacity on the basal left lung suggesting resolving atelectasis/airspace disease. There is the area of ovoid airspace along the peripheral left lung zone appears similar to previous. Left pneumothorax not clearly defined but appears slightly decreased from prior. Continued follow-up. Hemodynamically he is stable. Pulmonary following closely. On 10/2022 patient was seen and examined on the medical floor he is alert and oriented 3 in no apparent distress he has occasional cough, otherwise he denies any complaints there is no fever or chills no headache or dizziness no chest pain no shortness of breath at rest no nausea or vomiting, no abdominal pain no diarrhea and no urinary symptoms. Recommendation per pulmonary is to discharge patient to home, arrangements were made for home oxygen, per pulmonary no need for any further antibiotic at the time of discharge. Follow-up with pulmonary in 1-2 weeks Plan - Discharge Summary Discharge Rx Participant: No New Discharge Prescriptions: Continue Fenofibrate Nanocrystallized [Fenofibrate] 145 mg PO DAILY Atorvastatin [Lipitor] 20 mg PO DAILY Metoprolol Tartrate [Lopressor] 50 mg PO BID Multivit-Min/FA/Lycopen/Lutein [Centrum Silver Tablet] 1 tab PO DAILY Pantoprazole Sodium 40 mg PO HS Cholecalciferol [Vitamin D3 (25 Mcg = 1000 Iu)] 50 mcg PO DAILY Dapagliflozin Propanediol [Farxiga] 10 mg PO DAILY Turmeric Root Extract [Turmeric] 1,000 mg PO DAILY Fluticasone/Umeclidin/Vilanter [Trelegy Ellipta 100-62.5-25] 1 puff INHALATION RT-DAILY Sodium Chloride 5% Ophth Soln [Mary 128] 1 drops BOTH EYES BID Nitroglycerin Sl Tabs [Nitrostat] 0.4 mg SL Q5M PRN PRN Reason: Chest Pain Levothyroxine Sodium [Synthroid] 25 mcg PO DAILY Meclizine [Antivert] 25 mg PO TID PRN PRN Reason: Vertigo Vitamin B Complex 1 cap PO DAILY Tamsulosin [Flomax] 0.4 mg PO DAILY #10 cap Albuterol Inhaler [Ventolin Hfa Inhaler] 1 - 2 puff INHALATION RT-QID PRN PRN Reason: Shortness Of Breath Vitamin C 200mg 1 tab PO DAILY L.acidjassi,Paracasei, B.lactis [Probiotic] 1 cap PO DAILY Insulin Glargine,Hum.rec.anlog [Lantus Solostar Pen] 23 units SQ DAILY@1800 Discontinued Losartan Potassium 100 mg PO DAILY Superbeets Circulation Gummies 1 tab PO DAILY Discharge Medication List Atorvastatin [Lipitor] 20 mg PO DAILY 05/03/20 [History] Fenofibrate Nanocrystallized [Fenofibrate] 145 mg PO DAILY 05/03/20 [History] Metoprolol Tartrate [Lopressor] 50 mg PO BID 05/03/20 [History] Multivit-Min/FA/Lycopen/Lutein [Centrum Silver Tablet] 1 tab PO DAILY 05/03/20 [History] Pantoprazole Sodium 40 mg PO HS 05/03/20 [History] Cholecalciferol [Vitamin D3 (25 Mcg = 1000 Iu)] 50 mcg PO DAILY 05/16/21 [History] Vitamin B Complex 1 cap PO DAILY 05/16/21 [History] Dapagliflozin Propanediol [Farxiga] 10 mg PO DAILY 01/01/22 [History] Tamsulosin [Flomax] 0.4 mg PO DAILY #10 cap 01/01/22 [Rx] Turmeric Root Extract [Turmeric] 1,000 mg PO DAILY 01/01/22 [History] Albuterol Inhaler [Ventolin Hfa Inhaler] 1 - 2 puff INHALATION RT-QID PRN 03/06/23 [History] Fluticasone/Umeclidin/Vilanter [Trelegy Ellipta 100-62.5-25] 1 puff INHALATION RT-DAILY 03/06/23 [History] Sodium Chloride 5% Ophth Soln [Mary 128] 1 drops BOTH EYES BID 03/06/23 [History] Insulin Glargine,Hum.rec.anlog [Lantus Solostar Pen] 23 units SQ DAILY@1800 03/13/23 [History] L.acidoph,Paracasei, B.lactis [Probiotic] 1 cap PO DAILY 03/13/23 [History] Levothyroxine Sodium [Synthroid] 25 mcg PO DAILY 03/13/23 [History] Meclizine [Antivert] 25 mg PO TID PRN 03/13/23 [History] Nitroglycerin Sl Tabs [Nitrostat] 0.4 mg SL Q5M PRN 03/13/23 [History] Vitamin C 200mg 1 tab PO DAILY 03/13/23 [History] Follow up Appointment(s)/Referral(s): Jed Del Rio MD [Primary Care Provider] - 1-2 days Toby Brito MD [STAFF PHYSICIAN] - 1 Week
--- NOTE | 2023-03-25 14:32 | CDI ---
Documentation Clarification Form Date: 03/25/2023 01:46:11 PM From: Shirley Street RN, CCDS Email: [email or web address] Admit Date: 03/13/2023 05:02:00 PM Patient Name: Josue Blackburn Visit Number: [id number] Discharge Date: 03/23/2023 05:46:00 PM ATTENTION: The Clinical Documentation Specialists (CDI) and [facility] Coding Staff appreciate your assistance in clarifying documentation. Please respond to the clarification below the line at the bottom and electronically sign. The CDI & [facility] Coding staff will review the response and follow-up if needed. Please note: Queries are made part of the Legal Health Record. If you have any questions, please contact the author of this message via ITS. Dr. Jed Del Rio Possible sepsis is documented in the H&P, progress notes and discharge summary which may lack sufficient clinical evidence/support in the medical record. Additional clarification is requested. History/Risk Factors: Cancer, COPD, DM, GERD, HLD and HTN. Presented with shortness of breath, cough and general weakness. Admitted with extensive pneumonia in the left lung, acute hypoxic respiratory failure and possible sepsis. Clinical Indicators: 03/13 Vital signs: Temp 97.4, HR 92, RR 18, BP 103/60, pox 93% 03/13-03/20 Labs: WBC 9.8-10-8.7; lactic acid 1.2; Procalcitonin 2.45-1.11 03/14 Sputum culture: few pedro albicans 03/13 Blood cultures: no growth 03/13 CXR: extensive new airspace disease seen throughout the left lung which is suspicious for pneumonia. H&P: "Extensive pneumonia in the left lung. Possible sepsis awaiting blood culture results and lactic acid results." Discharge summary: "Extensive pneumonia in the left lung. Possible sepsis awaiting blood culture results and lactic acid results." Treatment: IV Azithromycin 500mg x1 on 03/13; Zithromax 500mg po 03/14 and 03/15; IV Rocephin 2gm x1 on 03/13; IV Rocephin 2gm Q24H 03/14-03/17; 1L 0.9 NS IV bolus on 03/13 Please clarify if Sepsis was a valid diagnosis? [ ] Yes, Sepsis was present as evidenced by (additional clinical support): [ x ] No, Sepsis was ruled out [ ] Other (please specify diagnosis) [ ] Unable to determine MTDD
== END 2023-03-23 17:46 | disposition home or self-care (01) | DRG 987 ==
LOC: EC 12:48 → 3SCARD 17:02 → 2SICU 22:27 → 3SCARD 03-14 11:07
PROVIDERS: ADMIT Internal Medicine; ATTEND Internal Medicine
PROC: 0BBG8ZX Excision of Left Upper Lung Lobe, Via Natural or Artificial Opening Endoscopic, Diagnostic (ICD-10-PCS; principal; 2023-03-21)
PROC: 0BBH8ZX Excision of Lung Lingula, Via Natural or Artificial Opening Endoscopic, Diagnostic (ICD-10-PCS; 2023-03-21)
PROC: 0B9G8ZX Drainage of Left Upper Lung Lobe, Via Natural or Artificial Opening Endoscopic, Diagnostic (ICD-10-PCS; 2023-03-21)
DX: E11.10 Type 2 diabetes mellitus with ketoacidosis without coma (principal); J18.9 Pneumonia, unspecified organism; J96.01 Acute respiratory failure with hypoxia; J95.811 Postprocedural pneumothorax; N17.9 Acute kidney failure, unspecified; D69.3 Immune thrombocytopenic purpura; J84.82 Adult pulmonary Langerhans cell histiocytosis; J44.0 Chronic obstructive pulmonary disease with (acute) lower respiratory infection; C90.00 Multiple myeloma not having achieved remission; D89.2 Hypergammaglobulinemia, unspecified; E11.22 Type 2 diabetes mellitus with diabetic chronic kidney disease; N18.30 Chronic kidney disease, stage 3 unspecified; I12.9 Hypertensive chronic kidney disease with stage 1 through stage 4 chronic kidney disease, or unspecified chronic kidney disease; I44.4 Left anterior fascicular block; E78.5 Hyperlipidemia, unspecified; E86.0 Dehydration; E55.9 Vitamin D deficiency, unspecified; K21.9 Gastro-esophageal reflux disease without esophagitis; J98.4 Other disorders of lung; Z20.822 Contact with and (suspected) exposure to COVID-19; Z79.4 Long term (current) use of insulin; Z28.310 Unvaccinated for COVID-19; Z87.891 Personal history of nicotine dependence; Z87.19 Personal history of other diseases of the digestive system; Z90.5 Acquired absence of kidney; Z79.899 Other long term (current) drug therapy; Z79.84 Long term (current) use of oral hypoglycemic drugs; Z79.51 Long term (current) use of inhaled steroids; Z79.890 Hormone replacement therapy; Z88.0 Allergy status to penicillin; Z85.828 Personal history of other malignant neoplasm of skin; Z85.528 Personal history of other malignant neoplasm of kidney
CPT/HCPCS: 31624; 31628; 36415; 71045; 71046; 80048; 80051; 80053; 81001; 82009; 82565; 82803; 82947; 83036; 83605; 83735; 84100; 84145; 84484; 84520; 85025; 85610; 85730; 87040; 87070; 87102; 87116; 87205; 87206; 87449; 87636; 88108; 88305; 88341; 88342; 89050; 93005; 94640; 94760; 96365; 96367; 96368; 99285

== ENCOUNTER 2023-08-11 08:37 | Day surgery (SDC) | payer MEDICARE ==
[2023-08-06 15:09] VITALS: BMI 23.1
[~2023-08-11 08:37] MED LIST changes: -LACTATED RINGERS 1,000 ML IV SCH
[2023-08-11] MEDS: LACTATED RINGERS 1,000 ML IV SCH (09:27)
[2023-08-11 09:40] LABS: Glucose,Whole Blood 69 mg/dL (70-110)
[2023-08-11 09:50] LABS: Glucose,Whole Blood 76 mg/dL (70-110)
[2023-08-11] MEDS ORDERED: PROPOFOL 10 MG/ML 20 ML VIAL IV ONE (09:58)
[2023-08-11 09:59] VITALS: RESP 16; TEMP 97.4
--- NOTE | 2023-08-11 10:01 | P.GSHP ---
History of Present Illness H&P Date: 08/11/23 Chief Complaint: Colon polyp 73-year-old male here for colonoscopy. Last colonoscopy 2 years ago. Patient has a recurrent polyp in the descending colon at 45 cm. No bowel complaints. Past Medical History Past Medical History: Cancer, COPD, Diabetes Mellitus, GERD/Reflux, Hearing Disorder / Deafness, Hyperlipidemia, Hypertension, Thyroid Disorder Additional Past Medical History / Comment(s): Hiatal hernia, hx left kidney cancer with surgery, hx skin cancer with removals, states iron infusion Mar 2021, states elevated protein in his blood, hard of hearing, worse in left ear, O2 use at night/when lying flat. History of Any Multi-Drug Resistant Organisms: None Reported Past Surgical History: Heart Catheterization, Hernia Repair, Tonsillectomy Additional Past Surgical History / Comment(s): Partial left kidney removed, skin cancer removed from left side of face with graft and top of left ear with skin graft, inguinal hernia repair X2, bone marrow biopsy. Past Anesthesia/Blood Transfusion Reactions: No Reported Reaction Additional Past Anesthesia/Blood Transfusion Reaction / Comment(s): No blood transfusion reaction. Past Psychological History: No Psychological Hx Reported Smoking Status: Former smoker Past Alcohol Use History: None Reported Additional Past Alcohol Use History / Comment(s): Quit smoking >6 yrs ago, smoked for 50 yrs. Past Drug Use History: None Reported - Past Family History Mother Family Medical History: No Reported History Medications and Allergies Home Medications Medication Instructions Recorded Confirmed Type Atorvastatin [Lipitor] 20 mg PO DAILY 05/03/20 08/11/23 History Fenofibrate Nanocrystallized 145 mg PO QAM 05/03/20 08/06/23 History [Fenofibrate] Metoprolol Tartrate [Lopressor] 50 mg PO BID 05/03/20 08/11/23 History Multivit-Min/FA/Lycopen/Lutein 1 tab PO DAILY 05/03/20 08/06/23 History [Centrum Silver Tablet] Pantoprazole Sodium 40 mg PO 1800 05/03/20 08/06/23 History Cholecalciferol [Vitamin D3 (25 50 mcg PO DAILY 05/16/21 08/06/23 History Mcg = 1000 Iu)] Vitamin B Complex 1 cap PO DAILY 05/16/21 08/06/23 History Dapagliflozin Propanediol [Farxiga] 10 mg PO QAM 01/01/22 08/06/23 History Tamsulosin [Flomax] 0.4 mg PO DAILY #10 cap 01/01/22 08/06/23 Rx Turmeric Root Extract [Turmeric] 1,000 mg PO DAILY 01/01/22 08/06/23 History Albuterol Inhaler [Ventolin Hfa 1 - 2 puff INHALATION QID 03/06/23 08/11/23 History Inhaler] Fluticasone/Umeclidin/Vilanter 1 puff INHALATION QAM 03/06/23 08/11/23 History [Trelegy Ellipta 100-62.5-25] Sodium Chloride 5% Ophth Soln 1 drops BOTH EYES BID 03/06/23 08/11/23 History [Mary 128] Insulin Glargine,Hum.rec.anlog 30 units SQ DAILY@1800 03/13/23 08/11/23 History [Lantus Solostar Pen] L.acidoph,Paracasei, B.lactis 1 cap PO DAILY 03/13/23 08/06/23 History [Probiotic] Nitroglycerin Sl Tabs [Nitrostat] 0.4 mg SL Q5M PRN 03/13/23 08/06/23 History Vitamin C 200mg 1 tab PO DAILY 03/13/23 08/06/23 History Levothyroxine Sodium 100 mcg PO QAM 08/06/23 08/11/23 History Losartan [Cozaar] 50 mg PO DAILY 08/11/23 08/11/23 History Allergies Allergy/AdvReac Type Severity Reaction Status Date / Time Penicillins Allergy Swelling Verified 08/11/23 09:23 Surgical - Exam Vital Signs Temp Pulse Resp BP Pulse Ox 97.4 F L 57 L 16 149/81 93 L 08/11/23 09:31 08/11/23 09:31 08/11/23 09:31 08/11/23 09:31 08/11/23 09:31 Physical exam: General: Well-developed, well-nourished HEENT: Normocephalic, sclerae nonicteric Abdomen: Nontender, nondistended Extremities: No edema Neuro: Alert and oriented Results - Labs Abnormal Lab Results - Last 24 Hours (Table) 08/11/23 Range/Units 09:34 POC Glucose (mg/dL) 69 L (70-110) mg/dL Assessment and Plan (1) Colon polyp Narrative/Plan: Will proceed with colonoscopy at this time. Current Visit: No Status: Acute Code(s): K63.5 - POLYP OF COLON SNOMED Code(s): 68717383
--- NOTE | 2023-08-11 10:15 | P.PCN ---
Date of Procedure: 08/11/23 Procedure(s) Performed: PREOPERATIVE DIAGNOSIS: History of colon polyps POSTOPERATIVE DIAGNOSIS: Descending colon polyp, diverticulosis PROCEDURE: Colonoscopy with snare polypectomy ANESTHESIA: MAC SURGEON: Smooth Mckeon M.D. SPECIMENS: Colon polyp ENDOSCOPIC PROCEDURE: The patient was placed on the endoscopy table in the left decubitus position. The Olympus colonoscope was inserted into the anus and passed under direct visualization to the base of the cecum. The appendiceal orifice was visualized. From that point the scope was slowly withdrawn inspecting all surfaces carefully. There were no neoplastic inflammatory or polypoid lesions throughout the cecum, ascending, and transverse colon. In the descending colon a small polyp was seen. This was present around 60 cm. I think this was in a different location than the prior. This was removed easily with the snare technique. The remainder of the descending sigmoid and rectum was normal with the exception of mild left-sided diverticulosis. Digital rectal examination was normal. The patient was taken to the recovery room in stable condition per anesthesia guidelines. RECOMMENDATIONS: Await biopsy results. Anticipate repeat colonoscopy 3 to 5 years.
[2023-08-11 10:26] LABS: Glucose,Whole Blood 88 mg/dL (70-110)
[2023-08-11 10:37] VITALS: BP 110/70; PULSE 70
== END 2023-08-11 10:49 | disposition home or self-care (01) ==
LOC: ORWHC2ENDO 08:37
PROVIDERS: ATTEND Surgery
DX: Z12.11 Encounter for screening for malignant neoplasm of colon (principal); D12.4 Benign neoplasm of descending colon; K57.30 Diverticulosis of large intestine without perforation or abscess without bleeding; Z86.010 Personal history of colon polyps; I10 Essential (primary) hypertension; J44.9 Chronic obstructive pulmonary disease, unspecified; E11.69 Type 2 diabetes mellitus with other specified complication; E78.5 Hyperlipidemia, unspecified; E07.9 Disorder of thyroid, unspecified; K21.9 Gastro-esophageal reflux disease without esophagitis; Z87.891 Personal history of nicotine dependence; Z79.899 Other long term (current) drug therapy; Z79.51 Long term (current) use of inhaled steroids; Z79.890 Hormone replacement therapy; Z79.84 Long term (current) use of oral hypoglycemic drugs; Z79.4 Long term (current) use of insulin; Z88.0 Allergy status to penicillin; Z85.528 Personal history of other malignant neoplasm of kidney; Z85.828 Personal history of other malignant neoplasm of skin
CPT/HCPCS: 88305; 45385; J2704

== ENCOUNTER → 2023-08-13 | Outpatient (CLI) | payer MEDICARE ==
--- NOTE | 2023-08-16 23:13 | PE ---
EXAMINATION TYPE: PET CT fusion skull to thigh DATE OF EXAM: 08/13/2023 COMPARISON: CT chest 02/16/2023 Prior PET/CT: 08/29/2022 HISTORY: Left Renal cell cancer with resection, history of multiple myeloma TECHNIQUE: Following the intravenous administration of 8.76 mCi of F-18 FDG, whole body images are p erformed from the skull base to the midthigh. Images are reviewed on the computer in the coronal, ax ial, and sagittal planes. Reconstructed rotating images are created on independent workstation and r eviewed on the computer. A localization and attenuation correction CT is performed in conjunction w ith the PET scan. DLP: 686.66 mGycm SCAN: Subsequent Blood glucose: 76 mg/dL Average Mediastinum SUV: 2.48 Average Liver SUV: 2.77 FINDINGS: NECK: No abnormal uptake THORAX: There is increased uptake within the soft tissues density lateral left upper lung field can b e compatible with metastatic disease. Greater uptake is within the periphery laterally than more cent rally. Example image 97, SUV 6.77. Within the low axillary region along the lateral right chest wall there is a small lymph node with an SUV of 3 note is made of an additional small lymph node posteriorly without increased uptake. No anjelica picious mediastinal or hilar adenopathy with uptake. ABDOMEN: No abnormal uptake. There is normal excretion within the bilateral kidneys. Large cyst measu ring 5.0 cm on the superior pole left kidney. PELVIS: No abnormal uptake OSSEOUS STRUCTURES: No abnormal uptake LOCALIZATION CT: Large hiatal hernia present. Prostate is prominent. COMPARISON: Left upper lobe density is new from comparison images IMPRESSION: 1. New left upper lobe irregular mass with lateral peripheral uptake suspicious for metastatic diseas e. 2. Tiny lymph node low right axillary region or lateral chest man some mild increased uptake. Inflamm atory change or metastatic disease should be considered. 3. No additional areas suspicious for metastatic disease. No suspicious changes to suggest recurrent renal neoplasm.
== END | disposition home or self-care (01) ==
LOC: RADPETMAIN 10:02
PROVIDERS: ATTEND Internal Medicine Hematology & Oncology
DX: R91.8 Other nonspecific abnormal finding of lung field (principal); C64.2 Malignant neoplasm of left kidney, except renal pelvis
CPT/HCPCS: 78815; A9552

== ENCOUNTER → 2023-11-27 | Outpatient (CLI) | payer MEDICARE ==
--- NOTE | 2023-11-27 12:42 | CT ---
EXAMINATION TYPE: CT chest wo con DATE OF EXAM: 11/27/2023 COMPARISON: PET/CT 08/13/[address] 02/16/2023 HISTORY: 73-year-old male J18.1 LOBAR PNEUMONIA, UNSPECIFIED ORGANISM TECHNIQUE: Contiguous axial scanning of the chest without IV contrast. Coronal/sagittal reconstructio ns performed. CT DLP: 415mGycm. Automatic exposure control utilized for a dose reduction. FINDINGS: The heart is upper limits of normal size without pericardial effusion. Extensive LAD and RCA coronary calcifications are present. Ascending aorta ectatic at 3.6 cm there is conventional arch vessel branching anatomy. Asymmetrically prominent rounded appearing lymph nodes in the right axilla measuring up to 1.4 cm are similar to 02/16/2023. Otherwise, no thoracic lymphadenopathy by CT size criteria. Large caliber main right and left pulmonary arteries measuring up to 2.7 cm suggesting underlying pul monary hypertension. There is a moderate to large hiatal hernia involving half of the stomach in the lower chest. Advanced emphysematous change redemonstrated. Focal left upper lobe and lingular opacity measures approximately 4.4 x 2.1 cm. This is in comparison to 5.9 x 3.2 cm on 08/13/2023. The abnormality spans approximately 6.1 cm craniocaudal. No pleural effusion. Visualized upper abdomen shows left renal cortical cyst measuring 5.3 cm. Bones: Moderate degenerative disc disease C6/C7. IMPRESSION: 1. COPD with advanced emphysema. Pulmonary arterial hypertension. 2. Focal left upper lobe opacity persists from 08/13/2023 but shows decreasing size/bulk currently 4.4 x 2.1 cm versus 5.9 x 2.2 cm, previously. The abnormality spans 6.1 cm craniocaudal. The persistence of pneumonia is unusual after 4 months. Recurrent pneumonia is possible. Ongoing follow-up recommend ed to exclude low-grade adenocarcinoma. Endobronchial evaluation can also be considered. 2. Moderate to large hiatal hernia involving half of the stomach in the lower chest. 3. Extensive LAD and RCA coronary artery calcifications.
== END | disposition home or self-care (01) ==
LOC: RADCTMAIN 11:14
PROVIDERS: ATTEND Internal Medicine Critical Care Medicine
DX: J18.1 Lobar pneumonia, unspecified organism (principal); J44.0 Chronic obstructive pulmonary disease with (acute) lower respiratory infection; J43.9 Emphysema, unspecified; I27.21 Secondary pulmonary arterial hypertension; K44.9 Diaphragmatic hernia without obstruction or gangrene; I25.10 Atherosclerotic heart disease of native coronary artery without angina pectoris
CPT/HCPCS: 71250

== ENCOUNTER 2023-12-20 19:06 | Inpatient (IN) | payer MEDICARE ==
--- NOTE | 2023-12-20 20:24 | ED ---
SOB HPI - General Chief Complaint: Shortness of Breath Stated Complaint: fever, sob Time Seen by Provider: 12/20/23 20:05 Source: patient, RN notes reviewed, old records reviewed Mode of arrival: ambulatory - History of Present Illness Initial Comments: This is a 73-year-old male to the ER. This patient presents today for evaluation regards to shortness of breath weakness fever cough congestion and feels like prior episodes of pneumonia with right-sided chest pain into his jaw. Patient had worsening shortness of breath here in the emergency department and fever at home MD Complaint: shortness of breath, cough -: minutes(s), hour(s), days(s) Severity: severe Severity scale (1-10): 8 Consistency: constant Improves With: nothing Worsens With: exertion Known History Of: COPD, asthma, recurrent pneumonia Context: recent URI, anxiety, recent illness Associated Symptoms: cough, sputum production Treatments Prior to Arrival: none - Related Data Home Medications Medication Instructions Recorded Confirmed Atorvastatin [Lipitor] 20 mg PO DAILY 05/03/20 08/11/23 Fenofibrate Nanocrystallized 145 mg PO QAM 05/03/20 08/06/23 [Fenofibrate] Metoprolol Tartrate [Lopressor] 50 mg PO BID 05/03/20 08/11/23 Multivit-Min/FA/Lycopen/Lutein 1 tab PO DAILY 05/03/20 08/06/23 [Centrum Silver Tablet] Pantoprazole Sodium 40 mg PO 1800 05/03/20 08/06/23 Cholecalciferol [Vitamin D3 (25 50 mcg PO DAILY 05/16/21 08/06/23 Mcg = 1000 Iu)] Vitamin B Complex 1 cap PO DAILY 05/16/21 08/06/23 Dapagliflozin Propanediol [Farxiga] 10 mg PO QAM 01/01/22 08/06/23 Turmeric Root Extract [Turmeric] 1,000 mg PO DAILY 01/01/22 08/06/23 Albuterol Inhaler [Ventolin Hfa 1 - 2 puff INHALATION QID 03/06/23 08/11/23 Inhaler] Fluticasone/Umeclidin/Vilanter 1 puff INHALATION QAM 03/06/23 08/11/23 [Trelegy Ellipta 100-62.5-25] Sodium Chloride 5% Ophth Soln 1 drops BOTH EYES BID 03/06/23 08/11/23 [Mary 128] Insulin Glargine,Hum.rec.anlog 30 units SQ DAILY@1800 03/13/23 08/11/23 [Lantus Solostar Pen] L.acidoph,Paracasei, B.lactis 1 cap PO DAILY 03/13/23 08/06/23 [Probiotic] Nitroglycerin Sl Tabs [Nitrostat] 0.4 mg SL Q5M PRN 03/13/23 08/06/23 Vitamin C 200mg 1 tab PO DAILY 03/13/23 08/06/23 Levothyroxine Sodium 100 mcg PO QAM 08/06/23 08/11/23 Losartan [Cozaar] 50 mg PO DAILY 08/11/23 08/11/23 Previous Rx's Medication Instructions Recorded Tamsulosin [Flomax] 0.4 mg PO DAILY #10 cap 01/01/22 Allergies Allergy/AdvReac Type Severity Reaction Status Date / Time Penicillins Allergy Swelling Verified 08/11/23 09:23 Review of Systems ROS Statement: Those systems with pertinent positive or pertinent negative responses have been documented in the HPI. ROS Other: All systems not noted in ROS Statement are negative. Past Medical History Past Medical History: Cancer, COPD, Diabetes Mellitus, GERD/Reflux, Hearing Disorder / Deafness, Hyperlipidemia, Hypertension, Thyroid Disorder Additional Past Medical History / Comment(s): Hiatal hernia, hx left kidney cancer with surgery, hx skin cancer with removals, states iron infusion Mar 2021, states elevated protein in his blood, hard of hearing, worse in left ear, O2 use at night/when lying flat. History of Any Multi-Drug Resistant Organisms: None Reported Past Surgical History: Heart Catheterization, Hernia Repair, Tonsillectomy Additional Past Surgical History / Comment(s): Partial left kidney removed, skin cancer removed from left side of face with graft and top of left ear with skin graft, inguinal hernia repair X2, bone marrow biopsy. Past Anesthesia/Blood Transfusion Reactions: No Reported Reaction Additional Past Anesthesia/Blood Transfusion Reaction / Comment(s): No blood transfusion reaction. Past Psychological History: No Psychological Hx Reported Smoking Status: Former smoker Past Alcohol Use History: None Reported Past Drug Use History: None Reported - Past Family History Mother Family Medical History: No Reported History General Exam General appearance: alert, in no apparent distress, anxious Head exam: Present: atraumatic, normocephalic, normal inspection Eye exam: Present: normal appearance, PERRL, EOMI. Absent: scleral icterus, conjunctival injection, periorbital swelling ENT exam: Present: normal exam, mucous membranes moist Neck exam: Present: normal inspection. Absent: tenderness, meningismus, lymphadenopathy Respiratory exam: Present: normal lung sounds bilaterally. Absent: respiratory distress, wheezes, rales, rhonchi, stridor Cardiovascular Exam: Present: regular rate, normal rhythm, normal heart sounds. Absent: systolic murmur, diastolic murmur, rubs, gallop, clicks GI/Abdominal exam: Present: soft, normal bowel sounds. Absent: distended, tenderness, guarding, rebound, rigid Extremities exam: Present: normal inspection, full ROM, normal capillary refill. Absent: tenderness, pedal edema, joint swelling, calf tenderness Back exam: Present: normal inspection Neurological exam: Present: alert, oriented X3, CN II-XII intact Psychiatric exam: Present: normal affect, normal mood Skin exam: Present: warm, dry, intact, normal color. Absent: rash Course Vital Signs 12/20/23 12/20/23 12/20/23 19:32 21:23 21:29 Temperature 100.5 F H 99.2 F Pulse Rate 90 82 Respiratory 18 Rate Blood Pressure 133/77 O2 Sat by Pulse 92 L Oximetry 12/20/23 12/20/23 12/21/23 21:37 23:05 01:00 Temperature 98.8 F Pulse Rate 85 98 80 Respiratory 19 16 Rate Blood Pressure 136/79 102/68 O2 Sat by Pulse 97 94 L Oximetry 12/21/23 12/21/23 12/21/23 02:30 04:00 06:11 Temperature 97.8 F Pulse Rate 84 80 79 Respiratory 16 17 18 Rate Blood Pressure 104/58 106/62 94/63 O2 Sat by Pulse 96 95 95 Oximetry - Reevaluation(s) Reevaluation #1: 12/20/23 20:42 Medical records reviewed Reevaluation #2: 12/20/23 20:42 Patient symptoms unchanged Reevaluation #3: 12/20/23 20:42 Patient informed of results and questions answered Reevaluation #4: Was pt. sent in by a medical professional or institution (, PA, FULL SERVICE VENDING DRIVER, urgent care, hospital, or senior living...) When possible be specific @ -no Did you speak to anyone other than the patient for history (EMS, parent, family, police, friend...)? What history was obtained from this source @ -no Did you review nursing and triage notes (agree or disagree)? Why? @ -agree Are old charts reviewed (outside hosp., previous admission, EMS record, old EKG, old radiological studies, urgent care reports/EKG's, senior living records)? Report findings @ -yes Differential Diagnosis (chest pain, altered mental status, abdominal pain women, abdominal pain men, vaginal bleeding, weakness, fever, dyspnea, syncope, head ache, dizziness, GI bleed, back pain, seizure, CVA, palpatations, mental health, musculoskeletal)? @ -prior EKG interpreted by me (3pts min.). @ -yes X-rays interpreted by me (1pt min.). @ -yes negative for acute disease CT interpreted by me (1pt min.). @ -no U/S interpreted by me (1pt. min.). @ -no What testing was considered but not performed or refused? (CT, X-rays, U/S, labs)? Why? @ -none What meds were considered but not given or refused? Why? @ -none Did you discuss the management of the patient with other professionals (professionals i.e. MATT Guerra, FULL SERVICE VENDING DRIVER, lab, RT, psych nurse, social media community manager, compressor service technician, teacher, quality officer, nurse case manager)? Give summary @ -no Was smoking cessation discussed for >3mins.? @ -no Was critical care preformed (if so, how long)? @ -yes31 Were there social determinants of health that impacted care today? How? (Homelessness, low income, unemployed, alcoholism, drug addiction, transportation, low edu. Level, literacy, decrease access to med. care, [place] [facility], rehab)? @ -none Was there de-escalation of care discussed even if they declined (Discuss DNR or withdrawal of care, Hospice)? DNR status @ -no What co-morbidities impacted this encounter? (DM, HTN, Smoking, COPD, CAD, Cancer, CVA, ARF, Chemo, Hep., AIDS, mental health diagnosis, sleep apnea, morbid obesity)? @ -none Was patient admitted / discharged? Hospital course, mention meds given and route, prescriptions, significant lab abnormalities, going to OR and other pertinent info. @ - 73 male will be admitted for pneumonia with fever. COPD and sepsis with hypoxia Undiagnosed new problem with uncertain prognosis? @ -no Drug Therapy requiring intensive monitoring for toxicity (Heparin, Nitro, Insulin, Cardizem)? @ -no Were any procedures done? @ -no Diagnosis/symptom? @ -Pneumonia with hypoxia and fever Acute, or Chronic, or Acute on Chronic? @ -Acute Uncomplicated (without systemic symptoms) or Complicated (systemic symptoms)? @ -Complicated Side effects of treatment? @ -no Exacerbation, Progression, or Severe Exacerbation? @ -exacerbation Poses a threat to life or bodily function? How? (Chest pain, [place], [place], pneumonia, PE, COPD, DKA, ARF, appy, cholecystitis, CVA, Diverticulitis, Homicidal, Suicidal, threat to staff... and all critical care pts) @ -yes with hypoxia Reevaluation #5: Differential Fever: Pneumonia, viral URI, endocarditis, myocarditis, pericarditis, otitis, sinusitis, peritonsillar Abscess, retropharyngeal Abscess, epiglottitis, peritonitis, appendicitis, Gema cystitis, diverticulitis, hepatitis, colitis, UTI, PID, TOA, pyelonephritis, prostatitis, epididymitis, meningitis, encephalitis, pulmonary embolism, CVA, thyroid storm, pancreatitis, adrenal crisis, cavernous sinus thrombosis, this is not meant to be an all-inclusive list. differential Dyspnea: Coronary syndrome, arrhythmia, tamponade, asthma, COPD, pulmonary embolism, pneumonia, pneumothorax, pulmonary effusion, anaphylaxis, diabetic ketoacidosis, flailed chest, pulmonary contusion, diaphragmatic rupture, anemia, neuromuscular, this is not meant to be an all-inclusive list. - Consultations Consultation #1: Spoke with Dr. Del Rio who agrees to admit this patient Medical Decision Making - Medical Decision Making 73 male will be admitted for pneumonia with fever. COPD and sepsis with hypoxia - Lab Data Result diagrams: 12/20/23 20:21 12/20/23 20:21 Lab Results 12/20/23 12/20/23 12/20/23 Range/Units 20:21 20:21 20:21 WBC 11.2 H (3.8-10.6) k/uL RBC 5.05 (4.30-5.90) m/uL Hgb 14.8 (13.0-17.5) gm/dL Hct 46.0 (39.0-53.0) % MCV 91.1 (80.0-100.0) fL MCH 29.4 (25.0-35.0) pg MCHC 32.3 (31.0-37.0) g/dL RDW 13.5 (11.5-15.5) % Plt Count 270 (150-450) k/uL MPV 7.4 Neutrophils % 77 % Lymphocytes % 12 % Monocytes % 6 % Eosinophils % 3 % Basophils % 0 % Neutrophils # 8.6 H (1.3-7.7) k/uL Lymphocytes # 1.3 (1.0-4.8) k/uL Monocytes # 0.7 (0-1.0) k/uL Eosinophils # 0.4 (0-0.7) k/uL Basophils # 0.1 (0-0.2) k/uL PT 10.8 (10.0-12.5) sec INR 1.0 (<1.2) APTT 25.8 (22.0-30.0) sec Sodium 134 L (137-145) mmol/L Potassium 4.8 (3.5-5.1) mmol/L Chloride 108 H (98-107) mmol/L Carbon Dioxide 18 L (22-30) mmol/L Anion Gap 8 mmol/L BUN 39 H (9-20) mg/dL Creatinine 1.66 H (0.66-1.25) mg/dL Est GFR (CKD-EPI)AfAm 47 (>60 ml/min/1.73 sqM) Est GFR (CKD-EPI)NonAf 41 (>60 ml/min/1.73 sqM) Glucose 148 H (74-99) mg/dL Plasma Lactic Acid Riley (0.7-2.0) mmol/L Calcium 9.5 (8.4-10.2) mg/dL Magnesium 1.5 L (1.6-2.3) mg/dL Total Bilirubin 0.8 (0.2-1.3) mg/dL AST 25 (17-59) U/L ALT 14 (4-49) U/L Alkaline Phosphatase 47 (38-126) U/L Troponin I (0.000-0.034) ng/mL NT-Pro-B Natriuret Pep 108 pg/mL Total Protein 9.6 H (6.3-8.2) g/dL Albumin 4.2 (3.5-5.0) g/dL 12/20/23 12/20/23 Range/Units 20:21 20:21 WBC (3.8-10.6) k/uL RBC (4.30-5.90) m/uL Hgb (13.0-17.5) gm/dL Hct (39.0-53.0) % MCV (80.0-100.0) fL MCH (25.0-35.0) pg MCHC (31.0-37.0) g/dL RDW (11.5-15.5) % Plt Count (150-450) k/uL MPV Neutrophils % % Lymphocytes % % Monocytes % % Eosinophils % % Basophils % % Neutrophils # (1.3-7.7) k/uL Lymphocytes # (1.0-4.8) k/uL Monocytes # (0-1.0) k/uL Eosinophils # (0-0.7) k/uL Basophils # (0-0.2) k/uL PT (10.0-12.5) sec INR (<1.2) APTT (22.0-30.0) sec Sodium (137-145) mmol/L Potassium (3.5-5.1) mmol/L Chloride (98-107) mmol/L Carbon Dioxide (22-30) mmol/L Anion Gap mmol/L BUN (9-20) mg/dL Creatinine (0.66-1.25) mg/dL Est GFR (CKD-EPI)AfAm (>60 ml/min/1.73 sqM) Est GFR (CKD-EPI)NonAf (>60 ml/min/1.73 sqM) Glucose (74-99) mg/dL Plasma Lactic Acid Riley 1.0 (0.7-2.0) mmol/L Calcium (8.4-10.2) mg/dL Magnesium (1.6-2.3) mg/dL Total Bilirubin (0.2-1.3) mg/dL AST (17-59) U/L ALT (4-49) U/L Alkaline Phosphatase (38-126) U/L Troponin I <0.012 (0.000-0.034) ng/mL NT-Pro-B Natriuret Pep pg/mL Total Protein (6.3-8.2) g/dL Albumin (3.5-5.0) g/dL - EKG Data -: EKG Interpreted by Me (EKG is sinus 84 MA 159 QRS 105 QTc 370) - Radiology Data Radiology results: report reviewed (Chest x-ray is positive for pneumonia), image reviewed Critical Care Time Critical Care Time: Yes Total Critical Care Time: 31 Disposition Clinical Impression: Acute exacerbation of chronic obstructive pulmonary disease, Community acquired pneumonia, Hypoxia, Fever Disposition: ADMITTED IP TO THIS HOSP Condition: Serious Is patient prescribed a controlled substance at d/c from ED?: No Time of Disposition: 21:00
[2023-12-20] MEDS: SODIUM CHLORIDE 0.9% 1,000 ML IV STA ×2 (20:28→20:40)
[2023-12-20] MEDS: ACETAMINOPHEN IV (For NPO) 1,000 MG in EMPTY BAG 1 BAG IVPB STA (20:32)
[2023-12-20] MEDS: methylPREDNISolone SOD SUCCI 125 MG/2 ML VIAL IV STA (20:42)
[2023-12-20] MEDS ORDERED: PNEUMONIA PROTOCOL UTILIZED 1 EACH MISC PO PRN (20:43)
[2023-12-20] MEDS ORDERED: IPRATROPIUM-ALBUTEROL 3 ML NEB INHALATION PRN (20:43)
[2023-12-20] MEDS: IBUPROFEN IV 800 MG in SODIUM CHLORIDE 0.9% 250 ML IV ONE (20:44)
[2023-12-20 20:45] LABS: Basophils # (A) 0.1 k/uL (0-0.2); Basophils % (A) 0 %; Eosinophils # (A) 0.4 k/uL (0-0.7); Eosinophils % (A) 3 %; HGB 14.8 gm/dL (13.0-17.5); Lymphocytes # (A) 1.3 k/uL (1.0-4.8); Lymphocytes % (A) 12 %; MCH 29.4 pg (25.0-35.0); MCHC 32.3 g/dL (31.0-37.0); MCV 91.1 fL (80.0-100.0); Mean Platelet Volume 7.4; Monocytes # (A) 0.7 k/uL (0-1.0); Monocytes % (A) 6 %; Neutrophils # (A) 8.6 k/uL (1.3-7.7); Neutrophils % (A) 77 %; Platelet Count 270 k/uL (150-450); RBC 5.05 m/uL (4.30-5.90); RDW 13.5 % (11.5-15.5); WBC 11.2 k/uL (3.8-10.6)
[2023-12-20 21:15] LABS: ALT 14 U/L (4-49); AST 25 U/L (17-59); African American GFR (CKD) 47 (>60 ml/min/1.73 sqM); Albumin 4.2 g/dL (3.5-5.0); Alkaline Phosphatase 47 U/L (38-126); Anion Gap 8 mmol/L; Blood Urea Nitrogen 39 mg/dL (9-20); Calcium 9.5 mg/dL (8.4-10.2); Carbon Dioxide 18 mmol/L (22-30); Chloride 108 mmol/L (98-107); Glucose 148 mg/dL (74-99); Magnesium 1.5 mg/dL (1.6-2.3); Non-African American GFR(CKD) 41 (>60 ml/min/1.73 sqM); Potassium 4.8 mmol/L (3.5-5.1); Sodium 134 mmol/L (137-145); Total Bilirubin 0.8 mg/dL (0.2-1.3); Total Protein 9.6 g/dL (6.3-8.2)
[2023-12-20 21:18] LABS: Partial Thromboplastin Time 25.8 sec (22.0-30.0); Prothrombin Time 10.8 sec (10.0-12.5)
[2023-12-20] MEDS: IPRATROPIUM-ALBUTEROL 3 ML NEB INHALATION STA (21:20)
[2023-12-20 21:22] LABS: NT-Pro-B-Type Natriuretic Pept 108 pg/mL
[2023-12-20] MEDS: AZITHROMYCIN 500 MG in SODIUM CHLORIDE 0.9% 250 ML IVPB STA (22:42)
--- NOTE | 2023-12-20 22:59 | XR ---
EXAM: XR chest 1V portable CLINICAL INDICATION:Male, 73 years old with history of sob; [facility] COMPARISON: Chest x-ray 06/08/2023. Also refer PET/CT in July and CT chest in November. TECHNIQUE: Chest single view. FINDINGS: Lungs again show changes of advanced emphysema with interstitial scarring/fibrosis. Left midlung zone mass like opacity redemonstrated, concordant with the mass better seen on cross-sectional imaging. T his appears to have decreased in size, 6.4 cm in greatest dimension on the prior x-ray and now roughl y 4.8 cm. Cardiomediastinal silhouettes appears grossly stable however the left hand margin is obscured. Promin ent hilar pulmonary arterial shadows again noted suggestive of pulmonary hypertension. Mediastinal co ntours are unchanged. Bones and soft tissues appear grossly stable. Prominent asymmetric elevation of the left hemidiaphrag m again noted. No indwelling lines are seen. Monitor leads over the chest. IMPRESSION: 1. Persistent mass in the left midlung, appears decreased in size since 06/08/2023. 2. Advanced emphysema and interstitial changes redemonstrated. Findings of pulmonary hypertension. 3. No clearly acute abnormality.
[2023-12-21 06:13] VITALS: BP 94/63; PULSE 79; RESP 18; TEMP 97.8
[2023-12-21] MEDS ORDERED: ALBUTEROL NEBULIZED 2.5 MG/3 ML INHALATION SCH (08:00)
[2023-12-21] MEDS ORDERED: IPRATROPIUM-ALBUTEROL 3 ML NEB INHALATION SCH (08:00)
[2023-12-21] MEDS ORDERED: SYMBICORT 160-4.5 MCG INHALER INHALATION SCH (08:00)
[2023-12-21 08:01] LABS: Glucose,Whole Blood 259 mg/dL (70-110)
[2023-12-21] MEDS ORDERED: AZITHROMYCIN 500 MG in SODIUM CHLORIDE 0.9% 250 ML IVPB SCH (09:00)
[2023-12-21] MEDS ORDERED: cefTRIAXone 2 GM VIAL ONE (12:51)
[2023-12-21] MEDS ORDERED: SODIUM CHLORIDE 0.9% 50 ML ONE (12:51)
[2023-12-21] MEDS ORDERED: SODIUM CHLORIDE 0.9% 250 ML ONE (14:10)
[2023-12-21] MEDS ORDERED: AZITHROMYCIN 500 MG VIAL IVPB ONE (14:10)
[2023-12-21] MEDS ORDERED: predniSONE 20 MG TAB ONE (18:17)
[2023-12-21 18:47] LABS: Glucose,Whole Blood 480 mg/dL (70-110)
[2023-12-21] MEDS ORDERED: IPRATROPIUM-ALBUTEROL 3 ML NEB ONE (19:39)
[2023-12-21] MEDS ORDERED: INSULIN ASPART (NovoLOG) 100 UNIT/ML VIAL SQ ONE (20:14)
[2023-12-21] MEDS ORDERED: LOSARTAN 50 MG TAB ONE (21:45)
[2023-12-21] MEDS ORDERED: TAMSULOSIN 0.4 MG CAP.ER.24H PO ONE (21:45)
[2023-12-21] MEDS ORDERED: ENOXAPARIN 40 MG/0.4 ML SYRINGE SQ ONE (21:46)
[2023-12-21] MEDS ORDERED: PANTOPRAZOLE 40 MG TABLET PO ONE (21:46)
[2023-12-21] MEDS ORDERED: METOPROLOL TARTRATE 50 MG TAB ONE (21:46)
[2023-12-21] MEDS ORDERED: ATORVASTATIN 20 MG TAB ONE (21:47)
[2023-12-21] MEDS ORDERED: DAPAGLIFLOZIN PROPANEDIOL 10 MG TABLET ONE (21:57)
[2023-12-21] MEDS ORDERED: LEVOTHYROXINE 75 MCG TAB ONE (21:58)
[2023-12-22] MEDS ORDERED: LEVOTHYROXINE 50 MCG TAB ONE (06:36)
[2023-12-22] MEDS ORDERED: LEVOTHYROXINE 75 MCG TAB ONE ×2 (06:43→12:02)
[2023-12-22] MEDS ORDERED: DAPAGLIFLOZIN PROPANEDIOL 10 MG TABLET ONE (12:02)
[2023-12-22] MEDS ORDERED: LOSARTAN 50 MG TAB ONE (12:02)
[2023-12-22] MEDS ORDERED: ATORVASTATIN 20 MG TAB ONE (12:02)
[2023-12-22] MEDS ORDERED: PANTOPRAZOLE 40 MG TABLET PO ONE (12:04)
[2023-12-22] MEDS ORDERED: TAMSULOSIN 0.4 MG CAP.ER.24H PO ONE (12:04)
[2023-12-22] MEDS ORDERED: ENOXAPARIN 40 MG/0.4 ML SYRINGE SQ ONE (12:04)
[2023-12-22] MEDS ORDERED: cefTRIAXone 2 GM VIAL ONE (12:06)
[2023-12-22] MEDS ORDERED: SODIUM CHLORIDE 0.9% 50 ML ONE (12:06)
[2023-12-22] MEDS ORDERED: SODIUM CHLORIDE 0.9% 250 ML ONE (14:27)
[2023-12-22] MEDS ORDERED: AZITHROMYCIN 500 MG VIAL IVPB ONE (14:27)
[2023-12-22] MEDS ORDERED: INSULIN ASPART (NovoLOG) 100 UNIT/ML VIAL SQ ONE (17:55)
[2023-12-22 20:19] LABS: Glucose,Whole Blood 99 mg/dL (70-110)
[2023-12-22] MEDS ORDERED: IPRATROPIUM-ALBUTEROL 3 ML NEB ONE (20:22)
[2023-12-22 21:26] LABS: Glucose,Whole Blood 69 mg/dL (70-110)
[2023-12-22] MEDS ORDERED: ALPRAZolam 0.25 MG TAB ONE ×2 (21:37)
[2023-12-22 21:48] LABS: Glucose,Whole Blood 102 mg/dL (70-110)
[2023-12-23] MEDS ORDERED: SYMBICORT 160-4.5 MCG INHALER INHALATION ONE
[2023-12-23] MEDS ORDERED: INSULIN DETEMIR (LEVEMIR) 100 UNIT/ML SYR SQ ONE
[2023-12-23] MEDS ORDERED: PANTOPRAZOLE 40 MG TABLET PO ONE ×4 (06:50→08:59)
[2023-12-23] MEDS ORDERED: LEVOTHYROXINE 75 MCG TAB ONE (06:50)
[2023-12-23] MEDS ORDERED: IPRATROPIUM-ALBUTEROL 3 ML NEB ONE ×3 (07:49→16:11)
[2023-12-23] MEDS ORDERED: ENOXAPARIN 40 MG/0.4 ML SYRINGE SQ ONE (08:58)
[2023-12-23] MEDS ORDERED: METOPROLOL TARTRATE 50 MG TAB ONE (08:59)
[2023-12-23] MEDS ORDERED: TAMSULOSIN 0.4 MG CAP.ER.24H PO ONE (08:59)
[2023-12-23] MEDS ORDERED: predniSONE 20 MG TAB ONE (08:59)
[2023-12-23] MEDS ORDERED: ATORVASTATIN 20 MG TAB ONE (08:59)
[2023-12-23] MEDS ORDERED: LOSARTAN 50 MG TAB ONE (08:59)
[2023-12-23] MEDS ORDERED: cefTRIAXone 2 GM VIAL ONE ×2 (09:00→12:13)
[2023-12-23] MEDS ORDERED: SODIUM CHLORIDE 0.9% 50 ML ONE (09:00)
[2023-12-23] MEDS ORDERED: FENOFIBRATE 160 MG TAB ONE (09:03)
[2023-12-23] MEDS ORDERED: AZITHROMYCIN 500 MG VIAL IVPB ONE (09:03)
[2023-12-23] MEDS ORDERED: SODIUM CHLORIDE 0.9% 250 ML ONE (09:03)
[2023-12-23] MEDS ORDERED: DAPAGLIFLOZIN PROPANEDIOL 10 MG TABLET ONE (09:03)
[2023-12-23] MEDS ORDERED: INSULIN ASPART (NovoLOG) 100 UNIT/ML VIAL SQ ONE ×3 (12:13→23:15)
[2023-12-24] MEDS ORDERED: SYMBICORT 160-4.5 MCG INHALER INHALATION ONE (00:01)
[2023-12-24] MEDS ORDERED: IPRATROPIUM-ALBUTEROL 3 ML NEB ONE (00:01)
[2023-12-24] MEDS ORDERED: INSULIN ASPART (NovoLOG) 100 UNIT/ML VIAL SQ ONE ×4 (06:52→21:17)
[2023-12-24] MEDS ORDERED: METOPROLOL TARTRATE 50 MG TAB ONE ×2 (09:25)
[2023-12-24] MEDS ORDERED: PANTOPRAZOLE 40 MG TABLET PO ONE ×2 (09:25)
[2023-12-24] MEDS ORDERED: TAMSULOSIN 0.4 MG CAP.ER.24H PO ONE (09:25)
[2023-12-24] MEDS ORDERED: ATORVASTATIN 20 MG TAB ONE (09:25)
[2023-12-24] MEDS ORDERED: DAPAGLIFLOZIN PROPANEDIOL 10 MG TABLET ONE (09:26)
[2023-12-24] MEDS ORDERED: FENOFIBRATE 160 MG TAB ONE (09:26)
[2023-12-24] MEDS ORDERED: ENOXAPARIN 40 MG/0.4 ML SYRINGE SQ ONE (09:26)
[2023-12-24] MEDS ORDERED: LOSARTAN 50 MG TAB ONE (09:26)
[2023-12-24] MEDS ORDERED: predniSONE 20 MG TAB ONE (09:26)
[2023-12-24 11:48] LABS: Glucose,Whole Blood 205 mg/dL (70-110)
[2023-12-24] MEDS ORDERED: cefTRIAXone 2 GM VIAL ONE (12:27)
[2023-12-24] MEDS ORDERED: SODIUM CHLORIDE 0.9% 50 ML ONE (12:28)
[2023-12-24 16:18] LABS: Glucose,Whole Blood 340 mg/dL (70-110)
[2023-12-24] MEDS ORDERED: HYDROcodone/APAP 5-325MG 1 EACH TAB ONE ×2 (17:03)
[2023-12-24 20:39] LABS: Glucose,Whole Blood 408 mg/dL (70-110)
[2023-12-24] MEDS ORDERED: METOPROLOL TARTRATE 25 MG TAB ONE ×2 (21:16)
[2023-12-25] MEDS ORDERED: SYMBICORT 160-4.5 MCG INHALER INHALATION ONE (00:01)
[2023-12-25] MEDS ORDERED: IPRATROPIUM-ALBUTEROL 3 ML NEB ONE ×2 (00:01→07:54)
[2023-12-25] MEDS ORDERED: LEVOTHYROXINE 75 MCG TAB ONE (06:38)
[2023-12-25] MEDS ORDERED: HYDROcodone/APAP 5-325MG 1 EACH TAB ONE ×2 (06:39)
[2023-12-25] MEDS ORDERED: INSULIN ASPART (NovoLOG) 100 UNIT/ML VIAL SQ ONE ×2 (06:39→12:10)
[2023-12-25] MEDS ORDERED: ENOXAPARIN 40 MG/0.4 ML SYRINGE SQ ONE (07:32)
[2023-12-25] MEDS ORDERED: TAMSULOSIN 0.4 MG CAP.ER.24H PO ONE (07:32)
[2023-12-25] MEDS ORDERED: PANTOPRAZOLE 40 MG TABLET PO ONE ×2 (07:32)
[2023-12-25] MEDS ORDERED: METOPROLOL TARTRATE 50 MG TAB ONE ×2 (07:32)
[2023-12-25] MEDS ORDERED: ATORVASTATIN 20 MG TAB ONE (07:32)
[2023-12-25] MEDS ORDERED: predniSONE 20 MG TAB ONE (07:33)
[2023-12-25] MEDS ORDERED: DAPAGLIFLOZIN PROPANEDIOL 10 MG TABLET ONE (07:33)
[2023-12-25] MEDS ORDERED: FENOFIBRATE 160 MG TAB ONE (07:33)
[2023-12-25] MEDS ORDERED: LOSARTAN 50 MG TAB ONE (07:36)
[2023-12-25] MEDS ORDERED: cefTRIAXone 2 GM VIAL ONE (11:49)
== END 2023-12-25 14:30 | disposition home or self-care (01) | DRG 190 ==
LOC: EC 19:06 → 4SSUR 20:43
PROVIDERS: ADMIT Internal Medicine; ATTEND Internal Medicine
DX: J44.1 Chronic obstructive pulmonary disease with (acute) exacerbation (principal); J18.9 Pneumonia, unspecified organism; N17.9 Acute kidney failure, unspecified; Z20.822 Contact with and (suspected) exposure to COVID-19; J44.0 Chronic obstructive pulmonary disease with (acute) lower respiratory infection; H91.90 Unspecified hearing loss, unspecified ear; E78.5 Hyperlipidemia, unspecified; J44.9 Chronic obstructive pulmonary disease, unspecified; K21.9 Gastro-esophageal reflux disease without esophagitis; Z87.19 Personal history of other diseases of the digestive system; N40.0 Benign prostatic hyperplasia without lower urinary tract symptoms; I12.9 Hypertensive chronic kidney disease with stage 1 through stage 4 chronic kidney disease, or unspecified chronic kidney disease; E11.22 Type 2 diabetes mellitus with diabetic chronic kidney disease; E03.9 Hypothyroidism, unspecified; R09.02 Hypoxemia; Z85.528 Personal history of other malignant neoplasm of kidney; Z85.828 Personal history of other malignant neoplasm of skin; Z87.01 Personal history of pneumonia (recurrent); Z87.891 Personal history of nicotine dependence; Z88.0 Allergy status to penicillin; Z79.890 Hormone replacement therapy; Z79.4 Long term (current) use of insulin
CPT/HCPCS: 36415; 71045; 80053; 83605; 83735; 83880; 84484; 85025; 85610; 85730; 87040; 87070; 87205; 87449; 87636; 93005; 94640; 94760; 96365; 96366; 96367; 96368; 96375; 99291

== ENCOUNTER → 2024-04-11 | Outpatient (CLI) | payer MEDICARE ==
--- NOTE | 2024-04-11 12:24 | XR ---
EXAMINATION TYPE: XR cervical spine comp DATE OF EXAM: 04/11/2024 COMPARISON: NONE CLINICAL INDICATION: Male, 74 years old with history of M54.2; TECHNIQUE: Four views are submitted. FINDINGS: The odontoid is intact. There are no compression deformities. The prevertebral soft tissue structur es are within normal limits. Calcifications in the soft tissue neck are likely vascular. Emphysemato us changes involving the lung apices. There is multilevel hypertrophic and degenerative change with m oderate degenerative disc disease C5-C6 and grade 1 retrolisthesis. Multilevel facet arthropathy. The re is soft tissue ossification. Foraminal encroachment C5-6 and C6-C7 bilaterally. IMPRESSION: 1. There is foraminal encroachment at multiple levels with multilevel degenerative disc disease most marked at C5-C6. Retrolisthesis and posterior spondylosis may result in canal stenosis. Recommend fol low-up MRI. [facility], , 04/11/2024 12:22 PM
== END | disposition home or self-care (01) ==
LOC: RADXRMAIN 11:56
PROVIDERS: ATTEND Internal Medicine
DX: M48.02 Spinal stenosis, cervical region (principal); M50.322 Other cervical disc degeneration at C5-C6 level; M47.812 Spondylosis without myelopathy or radiculopathy, cervical region
CPT/HCPCS: 72050

== ENCOUNTER → 2024-05-25 | Outpatient (CLI) | payer MEDICARE ==
[2024-05-25 16:34] LABS: BUN/Creat Ratio 21.11 Ratio (12.00-20.00); Calcium 9.5 mg/dL (8.7-10.3); Carbon Dioxide 23.6 mmol/L (21.6-31.8); Chloride 103 mmol/L (96-109); Glucose 167 mg/dL (70-110); Potassium 5.2 mmol/L (3.5-5.5); Sodium 137 mmol/L (135-145)
== END | disposition home or self-care (01) ==
LOC: LABWHC1 09:39
PROVIDERS: ATTEND Nurse Practitioner Acute Care
DX: N18.32 Chronic kidney disease, stage 3b (principal)
CPT/HCPCS: 36415; 80048

== ENCOUNTER → 2024-09-16 | Outpatient (CLI) | payer MEDICARE ==
[2024-09-16 15:14] LABS: Basophils # (A) 0.05 X 10*3/uL (0.00-0.10); Basophils % (A) 0.8 %; Eosinophils # (A) 0.24 X 10*3/uL (0.04-0.35); Eosinophils % (A) 3.7 %; HCT 51.6 % (39.6-50.0); HGB 15.9 g/dL (13.0-17.0); Lymphocytes # (A) 1.61 X 10*3/uL (0.90-5.00); MCH 28.1 pg (27.0-32.0); MCHC 30.8 g/dL (32.0-37.0); MCV 91.2 FL (80.0-97.0); Mean Platelet Volume 9.8 FL (9.5-12.2); Monocytes % (A) 7.8 %; NRBC Per 100 WBC 0 X 10*3/uL (0.00-0.01); Neutrophils # (A) 3.98 X 10*3/uL (1.80-7.70); Neutrophils % (A) 61.8 %; Platelet Count 256 X 10*3/uL (140-440); RBC 5.66 X 10*6/uL (4.40-5.60); RDW 14.8 % (11.5-14.5); WBC 6.44 X 10*3/uL (4.50-10.00)
[2024-09-16 15:34] LABS: BUN/Creat Ratio 19.95 Ratio (12.00-20.00); Blood Urea Nitrogen 37.9 mg/dL (9.0-27.0); Calcium 9.6 mg/dL (8.7-10.3); Carbon Dioxide 22.5 mmol/L (21.6-31.8); Chloride 104 mmol/L (96-109); Glucose 113 mg/dL (70-110); Magnesium 1.7 mg/dL (1.5-2.4); Phosphorus 3.6 mg/dL (2.4-5.1); Potassium 5.1 mmol/L (3.5-5.5); Sodium 137 mmol/L (135-145)
== END | disposition home or self-care (01) ==
LOC: LABWHC1 09:27
PROVIDERS: ATTEND Nurse Practitioner Acute Care
DX: N18.32 Chronic kidney disease, stage 3b (principal); D63.1 Anemia in chronic kidney disease; R80.9 Proteinuria, unspecified
CPT/HCPCS: 36415; 80048; 83735; 84100; 85025

== ENCOUNTER → 2024-12-09 | Outpatient (CLI) | payer MEDICARE ==
--- NOTE | 2024-12-10 17:28 | PE ---
EXAMINATION TYPE: PET CT fusion whole-body DATE OF EXAM: 12/09/2024 CLINICAL INDICATION:Male, 74 years old with history of C90.00 multiple myeloma; history of left renal cell carcinoma. TECHNIQUE: Following the intravenous administration of 11.39 mCi of F-18 FDG, whole body images are performed from the skull vertex to the \toes. Images are reviewed on the computer in the coronal, a xial, and sagittal planes. Reconstructed rotating images are created on independent workstation and reviewed on the computer. A non-contrast CT is performed in conjunction with the PET scan. Glucose level 133 mg/dL CT DLP: 1456 mGycm, Automated exposure control for dose reduction was used. COMPARISON: CT 11/27/2023, 02/16/2023, 01/01/2022, PET/CT 08/13/2023, 08/29/2022, 07/12/2021, MRI: None FINDINGS: Mediastinal SUV mean is 2.8. Hepatic parenchyma SUV mean is 2.6. SKULL BASE AND NECK: No suspicious radiotracer activity. CHEST, MEDIASTINUM, AND HILAR REGION: No suspicious radiotracer activity. Decreasing size of left upper lobe 1.5 cm pulmonary nodule. Demonstrates a maximum SUV of 2.6. Decreasing lingular patchy airspace opacities. Only demonstrates low level FDG activity. Similar enlarged subcarinal lymph node measuring up to 2.0 cm short axis. Demonstrates a max SUV of 6 .4. ABDOMEN AND PELVIS: Stable prominent bilateral external iliac chain 9-10 mm short axis lymph nodes. The right demonstrate s a max SUV of 4.9. The left demonstrates a max SUV of 4.4. Stable prominent right obturator lymph node measuring 8 mm short axis with a max SUV of 4.9. Mildly increased size of left periaortic lymph node measuring 9 mm short axis, previously measured 5 mm there demonstrates a maximum SUV of 5.5. MUSCULOSKELETAL STRUCTURES: No suspicious radiotracer activity. OTHER CT: Bilateral aphakia. Moderate bilateral carotid bifurcation calcifications. Right thyroid lob e hypodense subcentimeter nodule. Mild coronary arterial calcifications. Mild cardiomegaly. Moderate to large sized hiatal hernia. But nonenlarged bilateral axillary lymph nodes. Simple left renal super ior pole exophytic cyst. Post surgical changes from partial left nephrectomy. Atherosclerotic calcifi cation of the aorta and its branches. Sigmoid diverticulosis without evidence for acute diverticuliti s. Postsurgical changes from left inguinal hernia repair. Mildly enlarged prostate gland measuring 5. 0 cm in transverse dimension. Tiny fat filled umbilical hernia. Advanced emphysematous changes redemo nstrated. IMPRESSION: 1. Decreasing size of left upper lobe pulmonary nodule with decreased adjacent consolidation opaciti es. No corresponding suspicious FDG activity. May represent resolving infectious/inflammatory process . Underlying metastasis is not excluded. Attention on follow-up exam. 2. Few scattered enlarged and prominent lymph nodes within the chest, abdomen and pelvis with mild F DG activity. These are nonspecific but may represent metastatic lymphadenopathy. Correlate clinically with consideration for short-term follow-up CT or PET/CT. [facility], , 12/10/2024 5:26 PM
== END | disposition home or self-care (01) ==
LOC: RADPETMAIN 06:56
PROVIDERS: ATTEND Internal Medicine Hematology & Oncology
DX: C90.00 Multiple myeloma not having achieved remission (principal); R91.1 Solitary pulmonary nodule
CPT/HCPCS: 78815; A9552